=== PATIENT | female | born 1940 | race Caucasian/White ===

== ENCOUNTER 2021-05-27 04:35 | Inpatient (IN) | payer MEDICARE, MEDICAID, SELFPAY ==
[2021-05-27] VITALS (22 sets, daily range): BP systolic 86–136; BP diastolic 39–76; PULSE 54–90; RESP 12–20; TEMP 36.2–36.9; O2SAT 92–100; BMI 29.3; BMI 31.8
--- NOTE | 2021-05-27 | IR_ITS ---
APPROVED REPORT Patient Location: Inpatient Trapper Animal: QUINCY Harvey RT (R) PROCEDURES Selective coronary angiogram Drug-eluting stent deployment to the proximal LAD Drug-eluting stent deployment to the proximal mid and distal dominant right coronary in a contiguous manner INDICATION Acute non-ST elevation myocardial infarction, Severe aortic stenosis preoperative evaluation for TAVR, Coronary artery disease, Informed consent was obtained prior to the procedure. COMPLICATIONS None Estimated Blood Loss: Less than 10 mls TECHNIQUE One percent lidocaine used to anesthetize the right anterior aspect of the wrist. The right radial artery was accessed via the Seldinger technique. A 6 Venezuelan sheath was placed in the right radial artery. 2.5 mg of verapamil, 800 mcg of nitroglycerin, 1mg Lidocaine and 5000 U Heparin were given through the arterial sheath. The papa catheter was also used to perform selective coronary angiogram. At the end the diagnostic angiogram therapeutic heparin was administered giving a therapeutic ACT and the guide catheter was placed in the left main artery followed by a Choice PT extra-support wire. A 3.5 x 22 mm resolute [place] stent was deployed at 22 angelique reducing the severe tandem stenosis to 0%. MEL-3 flow was present before and after the procedure. After achieving excellent angiographic results the apparatus was removed and the guide catheter was placed in the right coronary artery followed by the same wire. The lesion was severely calcified tortuous and required multiple balloons including 2.5 mm compliant balloons. 2 of these balloons ruptured at low atmospheric pressure. Eventually a 2.75 x 38 mm resolute [place] stent was placed in the mid right coronary artery and deployed at 22 angelique. Following this an additional 3 mm x 26 mm resolute Carlos Eduardo stent then placed in the proximal segment at 24 angelique. The stent overlapped the first stent. Additional 2.5 mm balloons were then required distally in order to further predilate the stenosis. An additional 2.75 x 30 mm resolute [place] stent was then placed distal to the first stent that was placed yet still overlapping it and deployed at 22 angelique. The balloon was brought back and deployed at 24 angelique up and down the vessel. After achieving excellent angiograph results the apparatus was removed the sheath was removed and hemostasis was achieved using TR banding patient was transferred to the postop already in stable condition. MEL-3 flow was present before and after the procedure ANGIOGRAPHIC RESULTS The left main artery Normal The left anterior descending artery Has proximal tandem 80 and 70% stenoses followed by a stent in the mid segment which is widely patent with minimal in-stent restenosis. The remaining vessel has 20 and 30% disease but is otherwise widely patent and wraps the apex The circumflex artery Is a nondominant vessel and gives rise to a large ramus intermedius which has ostial 40 followed by proximal 40% followed by additional long 30 to 40% stenosis. The true circumflex artery has a proximal 40% stenosis. The right coronary artery Is a dominant vessel severely calcified has proximal 50 and 70% stenosis with long diffuse proximal to mid vessel 70% stenosis terminating in a densely calcified 90% complex stenosis. Distally there is a 60% calcified stenosis along a tortuous bend a large posterior descending artery The HARDING ventriculogram reveals Not performed The left ventricular end-diastolic pressure Not measured IMPRESSION Severe two-vessel coronary disease as described above Known severe to critical aortic stenosis Successful percutaneous revascularization the proximal ID severe tandem stenosis reduced to 0% with 1 drug-eluting
--- NOTE | 2021-05-27 04:42 | PC.NURSE ---
PT WAS TRANSFERRED TO FLOOR VIA STRETCHER PER AMBULANCE FROM [facility] @ [id number]
--- NOTE | 2021-05-27 05:00 | ECG_ITS ---
APPROVED REPORT Exam: Resting ECG HR:84 bpm ECG Measurements Heart Rate 84 AXES QRSd 95 QRS 50 QT 388 T -29 QTc 429 Conclusion ATRIAL FIBRILLATION NONSPECIFIC ST & T-WAVE ABNORMALITY ABNORMAL ECG UNCONFIRMED REPORT Electronically signed by : Madi Hernandez MD 05/28/2021 16:04:29
--- NOTE | 2021-05-27 05:21 | PC.NURSE ---
Patient admitted to 216. Patient in no distress at time of admission. Patient alert to self. During admission patient very poor historian. Attempted to call Daughter Suri at [phone] which her answered stating she was gone to work. The knew very limited information about the patient stating she lives alone, shes supposed to be on some medication but she always forgets to take them states she doesn't have a poa to his knowledge. When asking the patient about code status RN asked if your heart was to stop would you want everything done to stay alive. Patient stated, I guess so. Will continue to monitor patient.
[2021-05-27 05:34] LABS: Basophils # 0.1 K/mm3 (0-0.2); Basophils % 0.7 % (0.1-2.0); Eosinophils # 0.2 K/mm3 (0.0-0.4); Eosinophils % 1.1 % (0.1-12.0); Hematocrit 34.1 % (37.0-47.0); Hemoglobin 10.7 g/dL (12.2-16.2); Lymphocytes # 0.8 K/mm3 (0.7-4.5); Lymphocytes % 4.8 % (10-50); Mean Corpuscular HGB Conc 31.3 g/dL (31.8-35.4); Mean Corpuscular Hemoglobin 29.6 pg (27.0-31.2); Mean Corpuscular Volume 94.6 fl (81-99); Mean Platelet Volume 8.7 fl (7.4-10.4); Monocytes # 0.7 K/mm3 (0.1-1.0); Monocytes % 4.1 % (1.7-9.3); Neutrophils # 14.2 K/mm3 (1.8-7.8); Neutrophils % 89.3 % (37.0-80.0); Platelet Count 225 K/mm3 (142-424); Red Cell Distribution Width 17.9 % (11.5-17.5); White Blood Count 15.9 K/mm3 (4.8-10.8)
[2021-05-27 05:35] LABS: Coronavirus 19, PCR Not Detected (NotDetected); Influenza A, PCR Not Detected (NotDetected); Influenza B, PCR Not Detected (NotDetected)
[2021-05-27 05:37] LABS: MANUAL DIFFERENTIAL MANUAL DIFFERENTIAL (MANUAL DIFF)
[2021-05-27 05:39] LABS: INR 1.14 (0.9-1.1); Prothrombin Time 12.8 seconds (10.1-12.5)
[2021-05-27 05:40] LABS: Alanine Aminotransferase 14 U/L (12-78); Albumin Level 2.9 g/dl (3.5-5.0); Albumin/Globulin Ratio 1.2 (1.1-1.8); Alkaline Phosphatase 79 U/L (38-126); Anion Gap 11.7 mEq/L (5-15); Aspartate Amino Transferase 29 U/L (14-36); Bilirubin,Total 1.1 mg/dl (0.2-1.3); Blood Urea Nitrogen 27 mg/dl (7-17); Carbon Dioxide 22 mmol/L (22.0-30.0); Chloride 105 mmol/L (98-107); Creatinine Clearance Estimated 57 mL/min (50-200); Estimated Glomerular Filt Rate 53 ml/min (>60); GFR (African American) 64 ML/MIN (>60); Globulin 2.5 g/dL (1.3-3.2); Glucose 106 mg/dl (74-100); Potassium 3.7 mmoL/L (3.5-5.1); Sodium 135 mmol/L (136-145); Total Protein,Serum 5.4 g/dl (6.3-8.2)
[2021-05-27 05:52] LABS: Troponin I 0.51 ng/ml (0.00-0.034)
[2021-05-27 06:02] LABS: Lymphocytes % 3 % (10-50); Monocytes % 2 % (2-9); Neutrophils % 95 % (42-76); Total Cells Counted 100
[2021-05-27 06:03] LABS: Platelet Estimate Normal; Stomatocytes 1+
[2021-05-27 06:04] LABS: D-Dimer 1.14 ug/mL (0.0-0.5)
--- NOTE | 2021-05-27 06:07 | PC.NURSE ---
Critical troponin of 0.51 called from Ryder in lab. Patient name and patient id repeated and verified. Notified Dr. Horn of critical lab no new orders at this time. Justina states, I'll be up to round in a few. We will probably cath the patient later. Will continue to monitor patient.
[2021-05-27 06:54] LABS: Chol/HDL Ratio 3.8 (1-3.5); Cholesterol 124 mg/dl (140-200); HDL Cholesterol 33 mg/dl (40-60); Magnesium 1.5 mg/dl (1.6-2.3); Triglycerides 44 mg/dl (30-150); VLDL Cholesterol 9 mg/dL (0-40)
--- NOTE | 2021-05-27 07:00 | CA_ITS ---
APPROVED REPORT EXAM: Comprehensive 2D, Doppler, and color-flow Echocardiogram Systems Protection Technician: Radha Strickland RDCS Ht: 5 ft 3 in Wt: 180lbs BSA: 1.85 BP: 000/00 mmHg Indications: MURMUR, elevated troponin, NSTEMI, HTN, DM 2D Dimensions IVSd 1.25 cm LVEF (Visual) 53.20 % PWd 1.23 cm LA Volume 185.90 mL LVDd 4.58 cm LA Volume Index 100.813270 mL/m2 (M/F) 16-34 LVDs 3.33 cm Aortic Root 3.05 cm Left Atrium 5.09 cm LVOT 1.72 cm (M/F) 1.5-2.5 M-Mode Dimensions RVDd 3.27 cm (0.9-2.6) LA Diam 6.05 cm (1.9-4.0) LVDd 4.83 cm (3.5-5.7) Ao Diam 2.54 cm (2.0-3.7) LVDs 3.46 cm (3.5-5.7) IVSd 1.22 cm (0.6-1.1) PWd 1.22 cm (0.6-1.1) EF (Teich) 54.60% EPSs 0.32 cm FS 28.40% EDV (Teich) 109.10 mL TAPSE 1.18 (<1.7) ESV (Teich) 49.50 mL LV Diastology E Decel Time 207.00 (160-240 msec) E/A Ratio 4.43 MED E' 5.20 (< 7 cm/sec) MED A' 1.70 cm/s E'/MED E' Ratio 26.06 (>14) LAT E' 8.10 (<10 cm/sec) LAT A' 4.00 cm/s E/LAT E' Ratio 16.73 (>14) Pulm Vein s 19.00 cm/sec Pulm Vein d 25.00 cm/sec Ar-A Duration 83.00 msec Aortic Valve LVOT Max 92.00 (70-110 cm/s) LVOT VTI 18.93 cm AoV Peak Edwin. 385.00 (50-130 cm/s) AI PHT 464.00 ms AO Peak GR. 59.40 mmHg AO Mean GR. 34.00 (<5 mmHg) AO VTI 82.79 (18-25 cm) CONCHIS (VTI) 0.53 (2.5-4.5 cm2) Mitral Valve MV A Velocity 31.00 (40-130 cm/s) E/A Ratio 4.43 MV Decel. Time 207.00 (160-240 ms) MV Mean Gr. 2.50 (<2mmHg) MV PHT 60.00 ms Pulmonary Valve PV Peak Velocity 63.00 (50-150 cm/s) Tricuspid Valve TR P. Velocity 210.00 cm/s RAP Estimate 10.00 mmHg RVSP 27.70 mmHg Left Ventricle Left atrium is moderately enlarged, left ventricle is normal size, mild concentric left ventricular hypertrophy, visually estimated ejection fraction 55% with no regional wall motion abnormality, diastolic parameters are inconclusive. Right Ventricle Right atrium and right ventricle are normal size and contractility. Aortic Valve Aortic valve is thickened and calcified with severe restriction in the aortic valve leaflet mobility, the mean gradient across aortic valve is 36 mmHg, valve area is 0.6 cm represents severe aortic stenosis, there is mild aortic insufficiency. Mitral Valve Mitral valve has dense mitral annular calcification with extension posterior mitral leaflet, there is no mitral stenosis, there is moderate mitral regurgitation. Tricuspid Valve Tricuspid valve is grossly normal, there is mild tricuspid regurgitation, tricuspid regurgitation jet velocity is inadequate for calculation of the right ventricular systolic pressure. Pulmonic Valve Pulmonic valve is poorly visualized. Great Vessels Aortic root is normal size. Inferior vena cava is poorly visualized. Pericardium No significant pericardial effusion noted. Conclusion 1. Moderately enlarged left atrium, normal left ventricular size, mild concentric left ventricular hypertrophy, visually estimated ejection fraction 55% with no regional wall motion abnormality, diastolic parameters are inconclusive. 2. Thickened and calcified aortic valve with severe aortic stenosis, valve area is 0.6 cm???, there is mild aortic insufficiency. 3. Moderate mitral and mild tricuspid regurgitation. 4. No significant pericardial effusion noted. 5. Inferior vena cava is poorly visualized. Electronically signed
[2021-05-27 07:05] LABS: Direct LDL Cholesterol 71.49 mg/dL (100-129)
--- NOTE | 2021-05-27 07:28 | HMH.PHAVTE ---
[facility] Pharmacy VTE Monitoring - Patient Demographics Admission date: 05/27/21 Report Date: 05/27/21 Time: 07:28 Allergies/Adverse Reactions: Patient Allergies No Known Allergies Allergy (Verified 05/27/21 05:00) Height: 1.6 m Weight: 81.65 kg - VTE Risk Labs: VTE Related Lab Results Hgb 10.7 g/dL (12.2-16.2) L 05/27/21 05:18 Hct 34.1 % (37.0-47.0) L 05/27/21 05:18 Plt Count 225 K/mm3 (142-424) 05/27/21 05:18 PT 12.8 seconds (10.1-12.5) H 05/27/21 05:18 INR 1.14 (0.9-1.1) H 05/27/21 05:18 BUN 27 mg/dl (7-17) H 05/27/21 05:18 Creatinine 1.00 mg/dl (0.52-1.04) 05/27/21 05:18 Estimated Creat Clear 57 mL/min (50-200) 05/27/21 05:18 Clinical Trial Participant: No - Prophylaxis VTE Prophylaxis Ordered?: Yes Types of VTE Prophylaxis: TEDS Knee High
--- NOTE | 2021-05-27 09:06 | HMH.HP ---
*Admission Date: 05/27/21 *Chief complaint: Chest Pain *History of present illness: This is an 80-year-old white female who is a very poor historian. She was transferred here from [facility] due to atrial fibrillation with RVR. The patient also has an elevated troponin. She states that she has been having chest pain. She describes this as a funny sensation in the substernal aspect of her chest. She also states that she has pressure in her chest. This radiates up to her neck. The patient states that it is associated with shortness of breath and nausea. She states that this can be severe. The patient states that her symptoms started yesterday and continued to worsen and that is why she went to the emergency department at [facility]. She is unable to really tell me any of her health history. It does appear that she does have hyperlipidemia, hypertension and diabetes. She denies any lower extremity edema. She denies any fever, chills, nausea, vomiting, diarrhea, PND or orthopnea. She was also complaining of racing of her heart and feeling like her heart was beating fast (Per Anatoly Lynn APRN). [facility] History I have reviewed the patient's past medical history: Yes Medical History: Reports:: Diabetes Mellitus Type 2, Hyperlipidemia, Hypertension *Have you ever received a pneumonia vaccine?: No *Have you received a flu vaccine this season?: No Other Surgeries: Yes: Hysterectomy-Total - *Social History Smoking Status: Former smoker Tobacco Type: cigarettes Alcohol Intake: never *Occupational Status:: retired Housing: house Household Members: none *Travel in the last 8 weeks: None Family Hx:: Coronary Artery Disease (father) Review of Systems - Review of Systems Review of systems:: pertinent systems reviewed and negative unless documented below - Constitutional Denies body ache(s), Denies chills - Eyes Denies blurry vision, Denies change in vision - ENT Denies bleeding gums, Denies ear pain, Denies mouth pain - *Cardiovascular Reports chest pain, Reports chest pain at rest, Reports chest pain with activity, Reports shortness of breath, Reports shortness of breath with activity, Reports irregular heart rhythm - *Respiratory Reports cough, Reports shortness of breath, Reports shortness of breath with activity, Denies excessive phlegm production - *Gastrointestinal Denies abdominal pain, Denies change in bowel habits, Denies change in stools - *Musculoskeletal Denies joint pain, Denies back pain, Denies joint swelling - Integumentary/Breasts Denies bleeding lesions, Denies changing lesions - *Neurologic Denies abnormal walking, Denies behavioral changes - Psychiatric Denies lack of enjoyment, Denies hearing things others do not hear - Endocrine Denies cold intolerance, Denies heat intolerance - Hematologic/Lymphatic Denies easy bleeding, Denies easy bruising - Allergic/Immunologic Denies GI upset with certain foods, Denies tongue swelling Meds Home Medications Medication Instructions Recorded Confirmed Type Atorvastatin Calcium [Lipitor 40mg 40 mg PO HS 05/27/21 05/27/21 History Tab] Allergies Allergy/AdvReac Type Severity Reaction Status Date / Time No Known Allergies Allergy Verified 05/27/21 05:00 Exam Vital signs and Labs for Last 24 Hours: Temp Pulse Resp BP Pulse Ox 98.1 F 74 18 90/44 L 95 05/27/21 11:55 05/27/21 14:55 05/27/21 14:55 05/27/21 14:55 05/27/21 14:55 Laboratory Results - last 24 hr 05/27/21 05:18: WBC 15.9 H, RBC 3.60 L, Hgb 10.7 L, Hct 34.1 L, MCV 94.6, MCH 29.6, MCHC 31.3 L, RDW 17.9 H, Plt Count 225, MPV 8.7, Neut % (Auto) 89.3 H, Lymph % (Auto) 4.8 L, Curry % (Auto) 4.1, Eos % (Auto) 1.1, Baso % (Auto) 0.7, Neut # (Auto) 14.2 H, Lymph # (Auto) 0.8, Curry # (Auto) 0.7, Eos # (Auto) 0.2, Baso # (Auto) 0.1, Total Counted 100, Neutrophils % (Manual) 95 H, Lymphocytes % (Manual) 3 L, Monocytes % (Manual) 2, Platelet Minerva
--- NOTE | 2021-05-27 10:10 | HMH.CNCARD ---
History of Present Illness Consult date: 05/27/21 Requesting physician: Medardo Horn Consult reason: chest pain, atrial fibrillation Chief complaint: chest pain History of present illness: This is an 80-year-old white female who is a very poor historian. She was transferred here from [facility] due to atrial fibrillation with RVR. The patient also has an elevated troponin. She states that she has been having chest pain. She describes this as a funny sensation in the substernal aspect of her chest. She also states that she has pressure in her chest. This radiates up to her neck. The patient states that it is associated with shortness of breath and nausea. She states that this can be severe. The patient states that her symptoms started yesterday and continued to worsen and that is why she went to the emergency department at [facility]. She is unable to really tell me any of her health history. It does appear that she does have hyperlipidemia, hypertension and diabetes. She denies any lower extremity edema. She denies any fever, chills, nausea, vomiting, diarrhea, PND or orthopnea. She was also complaining of racing of her heart and feeling like her heart was beating fast. [facility] History I have reviewed the patient's past medical history: Yes Medical History: Reports:: Diabetes Mellitus Type 2, Hyperlipidemia, Hypertension *Have you ever received a pneumonia vaccine?: No *Have you received a flu vaccine this season?: No Other Surgeries: Yes: Hysterectomy-Total - *Social History Smoking Status: Former smoker Tobacco Type: cigarettes Alcohol Intake: never *Occupational Status:: retired Housing: house Household Members: none *Travel in the last 8 weeks: None Family Hx:: Coronary Artery Disease (father) Meds Home Medications Medication Instructions Recorded Confirmed Type Atorvastatin Calcium [Lipitor 40mg 40 mg PO HS 05/27/21 05/27/21 History Tab] Allergies Allergy/AdvReac Type Severity Reaction Status Date / Time No Known Allergies Allergy Verified 05/27/21 05:00 Exam Vital signs and Labs for Last 24 Hours: Temp Pulse Resp BP Pulse Ox 97.9 F 75 19 104/58 L 100 05/27/21 08:00 05/27/21 08:00 05/27/21 08:00 05/27/21 08:00 05/27/21 08:00 Laboratory Results - last 24 hr 05/27/21 05:18: WBC 15.9 H, RBC 3.60 L, Hgb 10.7 L, Hct 34.1 L, MCV 94.6, MCH 29.6, MCHC 31.3 L, RDW 17.9 H, Plt Count 225, MPV 8.7, Neut % (Auto) 89.3 H, Lymph % (Auto) 4.8 L, [place] % (Auto) 4.1, Eos % (Auto) 1.1, Baso % (Auto) 0.7, Neut # (Auto) 14.2 H, Lymph # (Auto) 0.8, [place] # (Auto) 0.7, Eos # (Auto) 0.2, Baso # (Auto) 0.1, Total Counted 100, Neutrophils % (Manual) 95 H, Lymphocytes % (Manual) 3 L, Monocytes % (Manual) 2, Platelet Estimate Normal, Stomatocytes 1+ 05/27/21 05:18: Troponin I 0.51 H 05/27/21 05:18: PT 12.8 H, INR 1.14 H 05/27/21 05:18: D-Dimer 1.14 H 05/27/21 05:18: Sodium 135 L, Potassium 3.7, Chloride 105, Carbon Dioxide 22, Anion Gap 11.7, BUN 27 H, Creatinine 1.00, Estimated Creat Clear 57, Estimated GFR 53 L, Est GFR ( Amer) 64, Glucose 106 H, Calcium 8.0 L, Total Bilirubin 1.1, AST 29, ALT 14, Alkaline Phosphatase 79, Total Protein 5.4 L, Albumin 2.9 L, Globulin 2.5, Albumin/Globulin Ratio 1.2 05/27/21 05:18: SARS-CoV-2 (PCR) Not detected, Influenza A Untype (PCR) Not detected, Influenza Type B (PCR) Not detected 05/27/21 05:18: Magnesium 1.5 L, Triglycerides 44, Cholesterol 124 L, LDL Cholesterol Direct 71.49 L, VLDL Cholesterol 9, HDL Cholesterol 33 L, Cholesterol/HDL Ratio 3.8 H I & O for Last 24 hours: Intake & Output 05/24/21 05/25/21 05/26/21 05/27/21 23:59 23:59 23:59 23:59 Weight 180 lb 0.119 oz Narrative: EKG shows atrial fibrillation with nonspecific ST and T wave abnormalities. Rate is 84 bpm. - Constitutional no acute distress, obese - *Routine HEENT Exam Head: Present: normocephalic, atraumatic Eye: Present: EOMI, PERRL ENT: Present: mu
--- NOTE | 2021-05-27 10:19 | HMH.PHAINT ---
Home med rec complete
--- NOTE | 2021-05-27 10:24 | CA_ITS ---
FINAL REPORT TECHNIQUE: Color Doppler, duplex Doppler and bose scale sonography of the bilateral neck vasculature was performed. Velocities were measured in the carotid arteries. Stenosis evaluation based on velocity criteria. CLINICAL HISTORY: carotid bruits,DM,HTN,SEVERE FINDINGS: The peak systolic velocity of the right common carotid artery is 60 cm/sec and internal carotid artery 83 cm/sec. The diastolic velocity in the internal carotid artery is 25 cm/sec. The ICA/CCA ratio is 1.4. Visually, a moderate amount of plaque is seen. These findings are consistent with less than 50% stenosis. The external carotid artery is patent. The right vertebral artery is patent with antegrade flow. The peak systolic velocity of the left common carotid artery is 59 cm/sec and internal carotid artery 86 cm/sec. The diastolic velocity in the internal carotid artery is 23 cm/sec. The ICA/CCA ratio is 1.5. Visually, a moderate amount of plaque is seen. These findings are consistent with less than 50% stenosis. The external carotid artery is patent. The left vertebral artery is patent with antegrade flow. IMPRESSION: Less than 50% bilateral carotid stenosis. Bilateral patent vertebral arteries. If indicated, CTA or MRA could further evaluate. Reviewed, Interpreted and Dictated by Cuong Jewell III, MD Transcribed by Urbano Church Authenticated by Cuong Jewell III, MD on 05/27/2021 11:50:27 AM [facility]
--- NOTE | 2021-05-27 13:29 | PC.NURSE ---
pt. off floor to lab scientist.
[2021-05-27 16:17] LABS: CATHL Activated Clotting Time > 400 SEC (74-125)
[2021-05-27 21:31] LABS: POC Glucose,Bedside 109 (70-110)
[2021-05-28] VITALS (10 sets, daily range): BP systolic 98–142; BP diastolic 47–89; PULSE 65–91; RESP 14–23; TEMP 36.5–36.8; O2SAT 94–99; BMI 28.4
[2021-05-28 06:10] LABS: POC Glucose,Bedside 101 (70-110)
[2021-05-28 06:57] LABS: Basophils # 0.1 K/mm3 (0-0.2); Basophils % 0.6 % (0.1-2.0); Eosinophils # 0.2 K/mm3 (0.0-0.4); Eosinophils % 1.9 % (0.1-12.0); Hematocrit 33.3 % (37.0-47.0); Hemoglobin 10.4 g/dL (12.2-16.2); Lymphocytes # 1.4 K/mm3 (0.7-4.5); Lymphocytes % 12.5 % (10-50); Mean Corpuscular HGB Conc 31.3 g/dL (31.8-35.4); Mean Corpuscular Hemoglobin 29.8 pg (27.0-31.2); Mean Corpuscular Volume 95.1 fl (81-99); Mean Platelet Volume 9.4 fl (7.4-10.4); Monocytes # 0.7 K/mm3 (0.1-1.0); Monocytes % 6.3 % (1.7-9.3); Neutrophils # 8.8 K/mm3 (1.8-7.8); Neutrophils % 78.7 % (37.0-80.0); Platelet Count 235 K/mm3 (142-424); Red Cell Distribution Width 18.1 % (11.5-17.5); White Blood Count 11.1 K/mm3 (4.8-10.8)
[2021-05-28 07:04] LABS: Anion Gap 10.6 mEq/L (5-15); Blood Urea Nitrogen 30 mg/dl (7-17); Carbon Dioxide 24 mmol/L (22.0-30.0); Chloride 106 mmol/L (98-107); Creatinine Clearance Estimated 51 mL/min (50-200); Estimated Glomerular Filt Rate 53 ml/min (>60); GFR (African American) 64 ML/MIN (>60); Potassium 3.6 mmoL/L (3.5-5.1); Sodium 137 mmol/L (136-145)
[2021-05-28 07:05] LABS: Calcium 8.1 mg/dl (8.4-10.2); Glucose 90 mg/dl (74-100)
[2021-05-28 10:50] LABS: Microscopic, Urine URINE MICROSCOPIC (MICROSCOPIC)
[2021-05-28 11:03] LABS: Appearance,Urine CLEAR (Clear); Bilirubin,Urine Negative (Negative); Blood, Urine TRACE-I (Negative); Color,Urine YELLOW (Yellow); Glucose,Urine (UA) Negative (Negative); Ketones,Urine Negative (Negative); Leukocyte Esterase,Urine 2+ (Negative); Nitrate,Urine Negative (Negative); Protein,Urine Negative (Negative); Specific Gravity, Urine <= 1.005 (1.005-1.030)
--- NOTE | 2021-05-28 11:08 | DIET.NUTRFU ---
RD saw patient this AM during rounds and patient has no teeth. Claims she tolerates food with difficulty chewing or swallowing. Son lives with her at home and helps with meals. Breakfast intake was 75%. She does report wt loss COMPO CASTER, added glucerna BID to help maintain weight/nutrition.
[2021-05-28 11:25] LABS: Bacteria,Urine 1+ /lpf
--- NOTE | 2021-05-28 11:32 | HMH.PNCARD ---
Subjective Date: 05/28/21 Time: 10:30 Principal diagnosis: nonstemi, severe Interval history: This is an 80-year-old white female who presented to [facility] and was found to be in atrial fibrillation with RVR. She also had an elevated troponin consistent with a non-ST elevation myocardial infarction. The patient was transferred here to [facility] and underwent left cardiac catheterization. She had 1 stent placed to her LAD and 3 stents placed to her right coronary artery. The patient has been started on Brilinta and aspirin for dual antiplatelet therapy. The patient has tolerated this well. This morning she denies any chest pain or pressure. She denies any shortness of breath or edema. She denies any fever, chills, nausea, vomiting, diarrhea, PND or orthopnea. She denies any palpitations or racing of the heart today. The patient is now rate controlled in atrial fibrillation. The patient does have severe aortic stenosis. She would benefit from the TAVR procedure. We will refer the patient to Dr. Sellers on an outpatient basis for TAVR. Exam Vital signs and Labs for Last 24 Hours: Temp Pulse Resp BP Pulse Ox 97.9 F 66 22 98/47 L 98 05/28/21 11:26 05/28/21 11:26 05/28/21 11:26 05/28/21 11:26 05/28/21 11:26 Laboratory Results - last 24 hr 05/27/21 14:57: Activated Clotting Time > 400 H* 05/27/21 21:20: POC Glucose 109 05/28/21 05:20: WBC 11.1 H D, RBC 3.50 L, Hgb 10.4 L, Hct 33.3 L, MCV 95.1, MCH 29.8, MCHC 31.3 L, RDW 18.1 H, Plt Count 235, MPV 9.4, Neut % (Auto) 78.7, Lymph % (Auto) 12.5, [place] % (Auto) 6.3, Eos % (Auto) 1.9, Baso % (Auto) 0.6, Neut # (Auto) 8.8 H, Lymph # (Auto) 1.4, [place] # (Auto) 0.7, Eos # (Auto) 0.2, Baso # (Auto) 0.1 05/28/21 05:20: Sodium 137, Potassium 3.6, Chloride 106, Carbon Dioxide 24, Anion Gap 10.6, BUN 30 H, Creatinine 1.00, Estimated Creat Clear 51, Estimated GFR 53 L, Est GFR ( Amer) 64, Glucose 90, Calcium 8.1 L 05/28/21 06:03: POC Glucose 101 05/28/21 09:54: Urine Color Yellow, Urine Appearance Clear, Urine pH 6.0, Ur Specific [place] <= 1.005, Urine Protein Negative, Urine Glucose (UA) Negative, Urine Ketones Negative, Urine Blood Trace-i, Urine Nitrate Negative, Urine Bilirubin Negative, Urine Urobilinogen 2.0, Ur Leukocyte Esterase 2+ A, Urine RBC 3-5, Urine WBC 5-10, Ur Squamous Epith Cells 3-5, Urine Bacteria 1+ I & O for Last 24 hours: Intake & Output 05/25/21 05/26/21 05/27/21 05/28/21 23:59 23:59 23:59 23:59 Intake Total 840 / 840 360 / 360 Output Total 500 / 500 Balance 340 / 340 360 / 360 Weight 179 lb 14.355 oz 160 lb 9.6 oz Narrative: CNI shows: Less than 50% bilateral carotid stenosis. Bilateral patent vertebral arteries. If indicated, CTA or MRA could further evaluate. Telemetry strip shows atrial fibrillation with a rate of 71. Left cardiac catheterization shows: The left main artery Normal The left anterior descending artery Has proximal tandem 80 and 70% stenoses followed by a stent in the mid segment which is widely patent with minimal in-stent restenosis. The remaining vessel has 20 and 30% disease but is otherwise widely patent and wraps the apex The circumflex artery Is a nondominant vessel and gives rise to a large ramus intermedius which has ostial 40 followed by proximal 40% followed by additional long 30 to 40% stenosis. The true circumflex artery has a proximal 40% stenosis. The right coronary artery Is a dominant vessel severely calcified has proximal 50 and 70% stenosis with long diffuse proximal to mid vessel 70% stenosis terminating in a densely calcified 90% complex stenosis. Distally there is a 60% calcified stenosis along a tortuous bend a large posterior descending artery The HARDING ventriculogram reveals Not performed The left ventricular end-diastolic pressure Not measured IMPRESSION Severe two-vessel coronary disease as described above Known severe to critical aortic stenosis Succe
[2021-05-28 11:46] LABS: POC Glucose,Bedside 134 (70-110)
--- NOTE | 2021-05-28 14:12 | HMH.DCSUM ---
General - General Admission date:: 05/27/21 Discharge date: 05/28/21 HPI HPI: This is an 80-year-old white female who is a very poor historian. She was transferred here from [facility] due to atrial fibrillation with RVR. The patient also has an elevated troponin. She states that she has been having chest pain. She describes this as a funny sensation in the substernal aspect of her chest. She also states that she has pressure in her chest. This radiates up to her neck. The patient states that it is associated with shortness of breath and nausea. She states that this can be severe. The patient states that her symptoms started yesterday and continued to worsen and that is why she went to the emergency department at [facility]. She is unable to really tell me any of her health history. It does appear that she does have hyperlipidemia, hypertension and diabetes. She denies any lower extremity edema. She denies any fever, chills, nausea, vomiting, diarrhea, PND or orthopnea. She was also complaining of racing of her heart and feeling like her heart was beating fast (Per Anatoly Lynn [employer]HOU[employer]ER). Hospital Course Hospital Course: Abnormal Lab Results 05/27/21 14:57: Activated Clotting Time > 400 H* 05/28/21 05:20: WBC 11.1 H D, RBC 3.50 L, Hgb 10.4 L, Hct 33.3 L, MCHC 31.3 L, RDW 18.1 H, Neut # (Auto) 8.8 H 05/28/21 05:20: BUN 30 H, Estimated GFR 53 L, Calcium 8.1 L 05/28/21 09:54: Ur Leukocyte Esterase 2+ A 05/28/21 11:39: POC Glucose 134 H CNI shows: Less than 50% bilateral carotid stenosis. Bilateral patent vertebral arteries. If indicated, CTA or MRA could further evaluate. Telemetry strip shows atrial fibrillation with a rate of 71. Left cardiac catheterization shows: The left main artery Normal The left anterior descending artery Has proximal tandem 80 and 70% stenoses followed by a stent in the mid segment which is widely patent with minimal in-stent restenosis. The remaining vessel has 20 and 30% disease but is otherwise widely patent and wraps the apex The circumflex artery Is a nondominant vessel and gives rise to a large ramus intermedius which has ostial 40 followed by proximal 40% followed by additional long 30 to 40% stenosis. The true circumflex artery has a proximal 40% stenosis. The right coronary artery Is a dominant vessel severely calcified has proximal 50 and 70% stenosis with long diffuse proximal to mid vessel 70% stenosis terminating in a densely calcified 90% complex stenosis. Distally there is a 60% calcified stenosis along a tortuous bend a large posterior descending artery The HARDING ventriculogram reveals Not performed The left ventricular end-diastolic pressure Not measured IMPRESSION Severe two-vessel coronary disease as described above Known severe to critical aortic stenosis Successful percutaneous revascularization the proximal ID severe tandem stenosis reduced to 0% with 1 drug-eluting stent Severe to critical disease in a large dominant right coronary with successful percutaneous revascularization with 3 contiguous stents Aortic valve area of 0.6 cm??? per echocardiogram PLAN 1. Dual antiplatelet therapy 2. Referral to [facility] for evaluation of TAVR with Dr. Sellers 3. Risk factor modification 4. Avoidance of cardiac rehabilitation as long as patient has critical aortic stenosis echo: Conclusion 1. Moderately enlarged left atrium, normal left ventricular size, mild concentric left ventricular hypertrophy, visually estimated ejection fraction 55% with no regional wall motion abnormality, diastolic parameters are inconclusive. 2. Thickened and calcified aortic valve with severe aortic stenosis, valve area is 0.6 cm???, there is mild aortic insufficiency. 3. Moderate mitral and mild tricuspid regurgitation. 4. No significant pericardial effusion noted. 5. Inferior vena cava is poorly visualized. cardiology:Assessment and
--- NOTE | 2021-05-28 15:57 | HMH.PHACLD ---
Milagros Mckinley has received discharge medication counseling on the following medications: -ATORVASTATIN -BRILINTA -XARELTO -BISOPROLOL -NOT ON CHRISTY/ARB DUE TO NORMOTENSIVE BP.
--- NOTE | 2021-05-31 14:25 | CARE MANAGER ---
Attempted follow-up phone call and the number we have for this patient is not working. Called and spoke with Suri Stauffer () he states his isn't home from work but he patient is doing well and he doesn't know of any needs.
== END 2021-05-28 17:00 | disposition home or self-care (01) | DRG 246 ==
PROVIDERS: Internal Medicine; Nurse Practitioner Family; Admitting Provider Emergency Medicine; PCP Family Medicine; Visit Provider Emergency Medicine
PROC: 027137Z Dilation of Coronary Artery, Two Arteries with Four or More Drug-eluting Intraluminal Devices, Percutaneous Approach (ICD-10-PCS; principal; 2021-05-27 10:30)
DX: I21.4 Non-ST elevation (NSTEMI) myocardial infarction (principal); I48.91 Unspecified atrial fibrillation; I10 Essential (primary) hypertension; E78.5 Hyperlipidemia, unspecified; E11.9 Type 2 diabetes mellitus without complications; I08.0 Rheumatic disorders of both mitral and aortic valves; Z87.891 Personal history of nicotine dependence
CPT/HCPCS: 36415; 80048; 80053; 80061; 81001; 82962; 83735; 84484; 85007; 85025; 85347; 85378; 85610; 87086; 92928; 92941; 93005; 93306; 93458; 93880; 99152; 99153; C1725; C1769; C1876; C9600; C9606; C9803; J0696; J1644; Q9967; U0003; U0005

== ENCOUNTER → 2021-08-27 09:59 | Outpatient (CLI) | payer MEDICARE, MEDICAID, SELFPAY ==
[2021-08-27 17:20] LABS: Chloride 108 mmol/L (98-107); Potassium 4.2 mmoL/L (3.5-5.1); Sodium 139 mmol/L (136-145)
[2021-08-27 17:23] LABS: Alanine Aminotransferase 16 U/L (12-78); Albumin Level 3.2 g/dl (3.5-5.0); Albumin/Globulin Ratio 1.3 (1.1-1.8); Alkaline Phosphatase 72 U/L (38-126); Anion Gap 9.2 mEq/L (5-15); Aspartate Amino Transferase 36 U/L (14-36); Bilirubin,Total 0.6 mg/dl (0.2-1.3); Blood Urea Nitrogen 28 mg/dl (7-17); Carbon Dioxide 26 mmol/L (22.0-30.0); Estimated Glomerular Filt Rate 53 ml/min (>60); GFR (African American) 64 ML/MIN (>60); Globulin 2.5 g/dL (1.3-3.2); Total Protein,Serum 5.7 g/dl (6.3-8.2)
[2021-08-27 17:24] LABS: Glucose 105 mg/dl (74-100)
== END ==
PROVIDERS: PCP Emergency Medicine; Visit Provider Emergency Medicine
DX: E11.9 Type 2 diabetes mellitus without complications (principal)
CPT/HCPCS: 80053

== ENCOUNTER → 2022-08-11 10:44 | Outpatient (CLI) | payer MEDICARE, MEDICAID, SELFPAY ==
[2022-08-11 12:33] LABS: Basophils % 0.3 % (0.1-2.0); Eosinophils # 0.4 K/mm3 (0.0-0.4); Eosinophils % 3.1 % (0.1-12.0); Hemoglobin 10.4 g/dL (12.2-16.2); Lymphocytes # 1.3 K/mm3 (0.7-4.5); Lymphocytes % 10.1 % (10-50); Mean Corpuscular HGB Conc 32.5 g/dL (31.8-35.4); Mean Corpuscular Hemoglobin 27.5 pg (27.0-31.2); Mean Corpuscular Volume 84.5 fl (81-99); Mean Platelet Volume 8.6 fl (7.4-10.4); Monocytes # 0.8 K/mm3 (0.1-1.0); Monocytes % 6.6 % (1.7-9.3); Neutrophils % 79.9 % (37.0-80.0); Platelet Count 291 K/mm3 (142-424); Red Blood Count 3.79 M/mm3 (4.20-5.40); Red Cell Distribution Width 17.5 % (11.5-17.5); White Blood Count 12.5 K/mm3 (4.8-10.8)
[2022-08-11 12:53] LABS: Alanine Aminotransferase 26 U/L (12-78); Albumin Level 3.2 g/dl (3.5-5.0); Alkaline Phosphatase 129 U/L (38-126); Anion Gap 14.2 mEq/L (5-15); Aspartate Amino Transferase 43 U/L (14-36); Bilirubin,Indirect 0.8 mg/dL (0.0-0.9); Bilirubin,Total 0.8 mg/dl (0.2-1.3); Blood Urea Nitrogen 22 mg/dl (7-17); Calcium 8.1 mg/dl (8.4-10.2); Carbon Dioxide 33 mmol/L (22.0-30.0); Chloride 90 mmol/L (98-107); Chol/HDL Ratio 2.9 (1-3.5); Cholesterol 144 mg/dl (140-200); Estimated Glomerular Filt Rate 60 ml/min (>60); GFR (African American) 72 ML/MIN (>60); Glucose 116 mg/dl (74-100); HDL Cholesterol 50 mg/dl (40-60); Magnesium 1.5 mg/dl (1.6-2.3); Potassium 3.2 mmoL/L (3.5-5.1); Sodium 134 mmol/L (136-145); Total Protein,Serum 5.7 g/dl (6.3-8.2); Triglycerides 91 mg/dl (30-150); VLDL Cholesterol 18 mg/dL (0-40)
[2022-08-11 13:04] LABS: Direct LDL Cholesterol 80.32 mg/dL (100-129)
[2022-08-11 13:10] LABS: Free T4 (Free Thyroxine) 1.55 ng/dl (0.78-2.19)
[2022-08-11 13:23] LABS: Thyroid Stimulating Hormone 3.34 uIU/mL (0.465-4.68)
== END ==
LOC: LAB 10:45
PROVIDERS: PCP Family Medicine; Visit Provider Nurse Practitioner
DX: E78.2 Mixed hyperlipidemia (principal); I10 Essential (primary) hypertension; I21.4 Non-ST elevation (NSTEMI) myocardial infarction; I25.10 Atherosclerotic heart disease of native coronary artery without angina pectoris; I48.19 Other persistent atrial fibrillation; I65.23 Occlusion and stenosis of bilateral carotid arteries; R09.89 Other specified symptoms and signs involving the circulatory and respiratory systems; Z95.2 Presence of prosthetic heart valve; Z95.5 Presence of coronary angioplasty implant and graft; R42 Dizziness and giddiness; Z79.899 Other long term (current) drug therapy
CPT/HCPCS: 36415; 80048; 80061; 80076; 83036; 83735; 84439; 84443; 85025; 93270

== ENCOUNTER 2022-08-14 13:17 | Emergency (ER) | payer MEDICARE, MEDICAID, SELFPAY ==
[2022-08-14 13:16] VITALS: BP 124/62; PULSE 86; RESP 20; O2SAT 97
--- NOTE | 2022-08-14 13:17 | ECG_ITS ---
APPROVED REPORT Exam: Resting ECG HR:87 bpm ECG Measurements Heart Rate 87 AXES QRSd 97 QRS 61 QT 412 T 41 QTc 457 Conclusion ATRIAL FIBRILLATION NONSPECIFIC ST & T-WAVE ABNORMALITY ABNORMAL RHYTHM ECG UNCONFIRMED REPORT Electronically signed by : Madi Hernandez MD 08/15/2022 20:23:41
--- NOTE | 2022-08-14 13:19 | XR_ITS ---
PROCEDURE INFORMATION: Exam: XR Chest Exam date and time: 08/14/2022 1:22 PM Age: 82 years old Clinical indication: Chest wall pain TECHNIQUE: Imaging protocol: Radiologic exam of the chest. Views: 1 view. COMPARISON: No relevant prior studies available. FINDINGS: Tubes, catheters and devices: There is electronic monitoring device implanted within the right chest wall but difficult to further assess. Lungs: No consolidating infiltrates or pulmonary edema. Pleural spaces: Unremarkable. No pleural effusion. No pneumothorax. Heart/Mediastinum: Heart is enlarged. Evidence of previous cardiac valve repair. Bones/joints: Unremarkable for age. IMPRESSION: Cardiomegaly. No active disease.
[2022-08-14 13:21] VITALS: BP 124/62; PULSE 83; RESP 18; O2SAT 98; BMI 39.0
--- NOTE | 2022-08-14 13:24 | CT_ITS ---
PROCEDURE INFORMATION: Exam: CT Cervical Spine Without Contrast Exam date and time: 08/14/2022 1:45 PM Age: 82 years old Clinical indication: Injury or trauma; Fall; Sprain or strain, cervical ligaments; Additional info: Pain, fall TECHNIQUE: Imaging protocol: Computed tomography of the cervical spine without contrast. Radiation optimization: All CT scans at this facility use at least one of these dose optimization techniques: automated exposure control; mA and/or kV adjustment per patient size (includes targeted exams where dose is matched to clinical indication); or iterative reconstruction. REPORTING DATA: Count of CT and Cardiac NM exams in prior 12 months: This patient has received 0 known CTs and 0 known cardiac nuclear medicine studies in the 12 months prior to the current study. COMPARISON: CT HEAD/BRAIN WO CON 08/14/2022 1:43 PM FINDINGS: Bones/joints: No acute fracture or traumatic subluxation. No spondylolisthesis. The atlantooccipital and atlantoaxial articulations are intact. Occipital condyles are intact. Facet joint alignments are maintained. Age-related degenerative disc disease. Multilevel degenerative changes of the cervical spine. Prevertebral and retropharyngeal spaces: No prevertebral soft tissue swelling. Lungs: Lung apices are normal. Soft tissues: Unremarkable. IMPRESSION: No acute fracture or traumatic subluxation.
--- NOTE | 2022-08-14 13:24 | CT_ITS ---
PROCEDURE INFORMATION: Exam: CT Chest Without Contrast; Diagnostic Exam date and time: 08/14/2022 1:48 PM Age: 82 years old Clinical indication: Pain and injury or trauma; Fall; Sprain or strain; Chest wall pain; Additional info: Fall, pain TECHNIQUE: Imaging protocol: Diagnostic computed tomography of the chest without contrast. Radiation optimization: All CT scans at this facility use at least one of these dose optimization techniques: automated exposure control; mA and/or kV adjustment per patient size (includes targeted exams where dose is matched to clinical indication); or iterative reconstruction. REPORTING DATA: Count of CT and Cardiac NM exams in prior 12 months: This patient has received 0 known CTs and 0 known cardiac nuclear medicine studies in the 12 months prior to the current study. COMPARISON: CR XR CHEST PORTABLE 08/14/2022 1:22 PM FINDINGS: Tubes, catheters and devices: There is a electronic monitoring device projecting over the right upper chest wall. Lungs: Scattered granulomatous calcifications within the mediastinum and left upper lobe. Mild interstitial lung changes mid to lower lung zones with scattered reticulation without honeycombing or architectural distortion suggestive of idiopathic interstitial lung disease. 1 cm indistinct ground-glass nodule right upper lobe, nonspecific. Pleural spaces: Unremarkable. No pneumothorax. No pleural effusion. Heart: Heart is enlarged. Evidence of previous aortic valve repair. Extensive calcification of the coronary arteries. No significant pericardial effusion. Lymph nodes: Unremarkable. No enlarged lymph nodes. Vasculature: Scattered atherosclerotic changes of the thoracic aorta and upper abdominal aorta as well as mesenteric branches. No aortic aneurysm. Diaphragm: Small hiatal hernia. Gallbladder and bile ducts: Gallbladder has been removed. Bile ducts are not appreciably dilated. Spleen: There are scattered calcified granulomas within the spleen, longstanding, otherwise spleen is unremarkable. Kidneys and ureters: Large left renal cyst partially visualized, likely benign Bones/joints: Subacute healing fracture lateral aspect right 6th rib. Mild-moderate multilevel degenerative changes of the thoracic spine. No acute bony abnormalities. Soft tissues: Unremarkable. IMPRESSION: 1. No acute, posttraumatic abnormalities. 2. Subacute healing fracture right 6th rib. 3. Cardiomegaly with mild interstitial changes likely chronic. 4. 1 cm ground-glass nodule right upper lobe, nonspecific. Recommend repeat CT chest in 1 year for continued surveillance. 5. Additional chronic findings as above. COMMENTS: Consistent with the [employer]'s Incidental Findings Committee white paper (J Am Niko Radiol 2018): Any incidental renal lesion less than 1 cm or classified as too small to characterize, or any incidental cystic renal lesion characterized as simple-appearing, is likely benign. No follow-up imaging is recommended for these lesions per consensus recommendations based on imaging criteria.
--- NOTE | 2022-08-14 13:24 | CT_ITS ---
PROCEDURE INFORMATION: Exam: CT Head Without Contrast Exam date and time: 08/14/2022 1:43 PM Age: 82 years old Clinical indication: Injury or trauma; Fall; Other: Facial bruising TECHNIQUE: Imaging protocol: Computed tomography of the head without contrast. Radiation optimization: All CT scans at this facility use at least one of these dose optimization techniques: automated exposure control; mA and/or kV adjustment per patient size (includes targeted exams where dose is matched to clinical indication); or iterative reconstruction. REPORTING DATA: Count of CT and Cardiac NM exams in prior 12 months: This patient has received 0 known CTs and 0 known cardiac nuclear medicine studies in the 12 months prior to the current study. COMPARISON: US CA CAROTID DUPLEX BI 05/27/2021 10:29 AM FINDINGS: Brain: Age-related involutional changes and chronic microvascular ischemic disease. No evidence for acute transcortical infarct. No mass effect or midline shift. No extra-axial collection. No acute intracranial hemorrhage. Basal cisterns are patent. Cerebral ventricles: No ventriculomegaly. Paranasal sinuses: Visualized sinuses are unremarkable. No fluid levels. Mastoid air cells: Visualized mastoid air cells are well aerated. Orbital cavities: Bilateral cataract surgery. Bones/joints: Unremarkable. No acute fracture. Soft tissues: Unremarkable. IMPRESSION: No evidence for acute transcortical infarct, acute intracranial hemorrhage, or mass effect.
--- NOTE | 2022-08-14 13:24 | CT_ITS ---
PROCEDURE INFORMATION: Exam: CT Abdomen And Pelvis Without Contrast Exam date and time: 08/14/2022 1:49 PM Age: 82 years old Clinical indication: Injury or trauma; Fall; Sprain or strain; Additional info: Fall, pain TECHNIQUE: Imaging protocol: Computed tomography of the abdomen and pelvis without contrast. Radiation optimization: All CT scans at this facility use at least one of these dose optimization techniques: automated exposure control; mA and/or kV adjustment per patient size (includes targeted exams where dose is matched to clinical indication); or iterative reconstruction. REPORTING DATA: Count of CT and Cardiac NM exams in prior 12 months: This patient has received 0 known CTs and 0 known cardiac nuclear medicine studies in the 12 months prior to the current study. COMPARISON: CT CHEST WO CON 08/14/2022 1:48 PM FINDINGS: Lungs: Lung bases are clear. Liver: Normal. No mass. Gallbladder and bile ducts: Gallbladder has been removed. Bile ducts are not appreciably dilated. Pancreas: Unremarkable. Main pancreatic duct is not significantly dilated. Spleen: There are scattered calcified granulomas within the spleen, longstanding, otherwise spleen is unremarkable. Adrenal glands: Normal. No mass. Kidneys and ureters: Large benign-appearing left renal cyst otherwise kidneys are unremarkable. Stomach and bowel: See Vasculature finding. Appendix: No evidence of appendicitis. Intraperitoneal space: Unremarkable. No free air. No significant fluid collection. Vasculature: There are diffuse atherosclerotic changes with calcification of the abdominal aorta and iliac vessels. There is no aortic aneurysm.Scattered diverticuli large bowel without evidence of diverticulitis. Lymph nodes: Unremarkable. No enlarged lymph nodes. Urinary bladder: Unremarkable as visualized. Reproductive: Uterus has been removed. Bones/joints: Mild degenerative changes mid-lower lumbar spine. No acute bony abnormalities. Soft tissues: Lower abdominal wall mesh intact. Mild residual diastasis of the lower abdominal wall. IMPRESSION: 1. No evidence of abdominal or pelvic injury. 2. Additional chronic findings as above.
--- NOTE | 2022-08-14 13:29 | PC.NURSE ---
rad at bedside for portable cxr
--- NOTE | 2022-08-14 13:36 | PC.NURSE ---
blood sent to lab at this time
--- NOTE | 2022-08-14 13:39 | PC.NURSE ---
pt to Ct
[2022-08-14 13:41] LABS: Basophils # 0.1 K/mm3 (0-0.2); Basophils % 0.4 % (0.1-2.0); Eosinophils # 0.3 K/mm3 (0.0-0.4); Eosinophils % 3.1 % (0.1-12.0); Hematocrit 30.7 % (37.0-47.0); Hemoglobin 9.9 g/dL (12.2-16.2); Lymphocytes # 1.5 K/mm3 (0.7-4.5); Mean Corpuscular HGB Conc 32.4 g/dL (31.8-35.4); Mean Corpuscular Hemoglobin 27.6 pg (27.0-31.2); Mean Corpuscular Volume 85.2 fl (81-99); Mean Platelet Volume 8.3 fl (7.4-10.4); Monocytes # 0.6 K/mm3 (0.1-1.0); Monocytes % 5.9 % (1.7-9.3); Neutrophils # 8.3 K/mm3 (1.8-7.8); Neutrophils % 76.5 % (37.0-80.0); Platelet Count 289 K/mm3 (142-424); White Blood Count 10.8 K/mm3 (4.8-10.8)
[2022-08-14 13:43] LABS: Chloride 96 mmol/L (98-107)
[2022-08-14 13:44] LABS: Potassium 3.2 mmoL/L (3.5-5.1); Sodium 136 mmol/L (136-145)
[2022-08-14 13:46] LABS: Alanine Aminotransferase 26 U/L (12-78); Albumin/Globulin Ratio 1.1 (1.1-1.8); Alkaline Phosphatase 108 U/L (38-126); Anion Gap 11.2 mEq/L (5-15); Aspartate Amino Transferase 38 U/L (14-36); Bilirubin,Total 0.6 mg/dl (0.2-1.3); Blood Urea Nitrogen 22 mg/dl (7-17); Carbon Dioxide 32 mmol/L (22.0-30.0); Creatinine Clearance Estimated 61 mL/min (50-200); Estimated Glomerular Filt Rate 60 ml/min (>60); GFR (African American) 72 ML/MIN (>60); Globulin 2.7 g/dL (1.3-3.2); Total Protein,Serum 5.7 g/dl (6.3-8.2)
[2022-08-14 13:47] LABS: Calcium 8.4 mg/dl (8.4-10.2); Glucose 121 mg/dl (74-100)
--- NOTE | 2022-08-14 13:53 | PC.NURSE ---
pt return from CT
--- NOTE | 2022-08-14 14:04 | PC.NURSE ---
pt incontinent of urine, linens changed, depends placed on pt. warm blankets on pt. daughter at BS
--- NOTE | 2022-08-14 14:21 | HMH.EDGENADL ---
Discharge Plan Disposition Patient Disposition: Home, Self-Care Condition: Good Chief Complaint: PAIN Prescriptions Prescriptions: No Action pantoprazole 40 mg tablet,delayed release (DR/EC) 40 mg PO DAILY metoprolol tartrate 25 mg tablet 25 mg PO BID ondansetron HCl 4 mg tablet 4 mg PO Q8H PRN Label Comments: TAKE 1 TABLET BY MOUTH EVERY 8 HOURS NEEDED Xarelto 15 mg tablet 15 mg PO DAILY Qty: 30 5RF Rx Instructions: must administer with evening meal furosemide [Lasix] 20 mg tablet 20 mg PO DAILY Qty: 90 1RF atorvastatin 40 mg tablet 40 mg PO HS Qty: 90 3RF spironolactone [Aldactone] 25 mg tablet 25 mg PO DAILY Qty: 30 2RF magnesium oxide 400 mg magnesium tablet 400 mg PO DAILY Qty: 30 0RF Referrals Follow up/Referrals: Corrina Rausch [Primary Care Provider] - See instructions Clinical Impressions Clinical Impression: Dementia Discharge ED Provider: Nahid Estrada General Adult HPI General Chief complaint: PAIN Stated complaint: pain Time Seen by Provider: 08/14/22 13:20 Mode of Arrival: EMS Source of Information: Patient and EMS Limitations: Altered Mental Status Description of Symptoms (Recalled from ER Triage Doc. by RN): EMS reports they were called to pts residents with c/o neck and mid back pain. EMS reports when they arrived at pts home, pt was sitting on the side of the bed. Pts family said she complained of not feeling well since she woke up this morning and complained of pain. Pt has hx of dementia. Family is not here at this time, pt is unable to answer my questions. History of Present Illness HPI narrative: 82yo F presents to the ER initially complaining of neck and low back pain. Family stated the patient is complained about not feeling well since she woke up this morning. Patient is a history of dementia. On arrival, the patient has no complaint at all. She believes that she has at [facility]. Denies chest pain, shortness of breath. She does endorses very mild mid back pain. No fever. Reports good appetite and normal bowel function Related Data Home Medications Medication Instructions Recorded Confirmed pantoprazole 40 mg tablet,delayed 40 mg PO DAILY 06/30/21 08/11/22 release metoprolol tartrate 25 mg tablet 25 mg PO BID 08/11/22 08/11/22 ondansetron HCl 4 mg tablet 4 mg PO Q8H PRN 08/11/22 08/11/22 Previous Rx's Medication Instructions Recorded furosemide 20 mg tablet (Lasix) 20 mg PO DAILY #90 tabs 02/14/22 atorvastatin 40 mg tablet 40 mg PO HS Cholesterol #90 tabs 06/06/22 magnesium oxide 400 mg PO DAILY #30 tabs 08/11/22 rivaroxaban 15 mg tablet 15 mg PO DAILY #30 tabs 08/11/22 spironolactone 25 mg tablet 25 mg PO DAILY #30 tabs 08/11/22 (Aldactone) Allergies Allergy/AdvReac Type Severity Reaction Status Date / Time No Known Allergies Allergy Verified 08/11/22 10:05 [facility] Disclaimer: The information contained in this section may have been updated after the patient was seen, as this information can be updated by other users. Medical History Coronary artery disease Edema Syncope Surgical History S/P TAVR (transcatheter aortic valve replacement) Social History Smoking Status: Never smoker alcohol intake: never current occupational status: retired Travel in the last 8 weeks: Inside the [place] household members: none housing: house ROS Obtained: Yes unobtainable due to mental status Physical Exam General General appearance: alert and in no apparent distress Head Head exam: other (Significant ecchymosis, old, about the face) Eye Eye exam: Present normal appearance and EOMI ENT ENT exam: Present mucous membranes moist Neck Neck exam: Present trachea midline Chest Chest inspection: Present sym
[2022-08-14 14:32] VITALS: BP 131/79; PULSE 88; RESP 18; RESP 20; TEMP 36.6; O2SAT 96; O2SAT 98
== END 2022-08-14 14:52 | disposition home or self-care (01) ==
PROVIDERS: Emergency Provider Family Medicine; PCP Family Medicine
DX: M54.2 Cervicalgia (principal); M54.9 Dorsalgia, unspecified; F03.90 Unspecified dementia, unspecified severity, without behavioral disturbance, psychotic disturbance, mood disturbance, and anxiety; I48.91 Unspecified atrial fibrillation
CPT/HCPCS: 70450; 71045; 71250; 72125; 74176; 80053; 85025; 93005; 99285

== ENCOUNTER → 2022-08-23 07:45 | Outpatient (CLI) | payer MEDICARE, MEDICAID, SELFPAY | LOC: RT 07:45 | PROVIDERS: PCP Family Medicine; Visit Provider Nurse Practitioner | DX: R06.02 Shortness of breath (principal) | CPT/HCPCS: 93306 ==

== ENCOUNTER 2022-08-24 21:10 | Observation (INO) | payer MEDICARE, MEDICAID, SELFPAY ==
--- NOTE | 2022-08-24 21:23 | PC.NURSE ---
Pt arrived to floor via stretcher @ [phone]
[2022-08-24 21:29] VITALS: BMI 38.0
[2022-08-24 21:42] VITALS: PULSE 100
--- NOTE | 2022-08-24 21:45 | XR_ITS ---
PROCEDURE INFORMATION: Exam: XR Chest Exam date and time: 08/24/2022 10:02 PM Age: 82 years old Clinical indication: Shortness of breath; Additional info: Shortness of air TECHNIQUE: Imaging protocol: Radiologic exam of the chest. Views: 1 view. COMPARISON: CT CHEST WO CON 08/14/2022 1:48 PM FINDINGS: Tubes, catheters and devices: Aortic valve prosthesis is faintly visualized. Lungs: Reticular opacities are noted at each lung base. Pleural spaces: No pleural effusion. No pneumothorax. Heart/Mediastinum: Severe cardiomegaly. Vasculature: Calcified aortic arch without dilation. Bones/joints: Age appropriate. IMPRESSION: Reticular opacities at each lung base suggest edema in the setting of severe cardiomegaly. Atypical pneumonitis is not excluded.
[2022-08-24 21:50] VITALS: BP 125/89; PULSE 97; RESP 24; TEMP 36.5; O2SAT 93
--- NOTE | 2022-08-24 21:50 | EXP.HP ---
History of Present Illness *Admission Date: 08/24/22 *Reason for visit:: Shortness of air, leg swelling *History of present illness: Ms. Mckinley is a 82-year-old female with a past medical history of HFpEF, Atrial Fibrillation on chronic anticoagulation, history of TAVR, DM and Hypertension. She presents as a transfer from [facility] due to a 1-day history of Shortness of air associated with bilateral lower extremity swelling. She denies orthopnea or paroxysmal nocturnal dyspnea. In the ER at [facility] she was noted to be hypoxic on room air in the 80's. Cxray showed pulmonary vascular congestion and bilateral pleural effusions. BNP was elevated at 715. EKG showed atrial fibrillation with rate in the 80's. High sensitivy troponin was within normal limits at 23.5. ABG showed a pH of 7.440, there was concern that the sample was venous in that the pO2 was 39. In the ER at [facility] the patient was given 20 mg of Lasix iv and placed on oxygen at 2L with improvement in oxygen saturation to the 90's. The Attending ER Physician Dr. Guzman spoke with Stock Worker And Deliverer Dr. Alanis who recommended transfer to the facility. The patient is admitted with initial impression: CHF exacerbation. [facility] Disclaimer: The information contained in this section may have been updated after the patient was seen, as this information can be updated by other users. Medical History Congestive heart failure Coronary artery disease Diabetes mellitus, type 2 Edema History of gastroesophageal reflux (GERD) History of heart attack Pneumonia Syncope Surgical History History of hysterectomy S/P TAVR (transcatheter aortic valve replacement) Family History Other No significant family history Social History Smoking Status: Former smoker alcohol intake: never current occupational status: retired Travel in the last 8 weeks: [place] the [place] household members: none housing: house Review of Systems Review of Systems Review of systems:: pertinent systems reviewed and negative unless documented below Constitutional Constitutional: Reports system reviewed and no additional complaints, except as documented Eyes Eyes: Reports system reviewed and no additional complaints, except as documented ENT Ears, Nose, Mouth, and Throat: Reports system reviewed and no additional complaints, except as documented *Cardiovascular Cardiovascular: Reports dyspnea, Reports dyspnea on exertion and Reports leg edema *Respiratory Respiratory: Reports dyspnea and Reports dyspnea on exertion *Gastrointestinal Gastrointestinal: Reports system reviewed and no additional complaints, except as documented *Genitourinary Genitourinary: Reports system reviewed and no additional complaints, except as documented *Musculoskeletal Musculoskeletal: Reports system reviewed and no additional complaints, except as documented Integumentary/Breasts Skin/Breast: Reports system reviewed and no additional complaints, except as documented *Neurologic Neurologic: Reports system reviewed and no additional complaints, except as documented Psychiatric Psychiatric: Reports system reviewed and no additional complaints, except as documented Endocrine Endocrine: Reports system reviewed and no additional complaints, except as documented Hematologic/Lymphatic Hematologic/Lymphatic: Reports system reviewed and no additional complaints, except as documented Allergic/Immunologic Allergic/Immunologic: Reports system reviewed and no additional complaints, except as documented Meds Home Medications and Allergies Home Medications Medication Instructions Recorded Confirmed Type pantoprazole 40 mg tablet,delayed 40 mg PO DAILY Acid reflux 06/30/21
[2022-08-24 22:06] LABS: Coronavirus 19, PCR Not Detected (NotDetected); Influenza A, PCR Not Detected (NotDetected); Influenza B, PCR Not Detected (NotDetected)
--- NOTE | 2022-08-24 22:07 | PC.NURSE ---
1939- MD Zeke called house at this time informing of pt being sent from midnight for CHF exacerbation. 2001- [facility] transfer [place] called at this time requesting transfer. Fax number provided for facesheet to be sent here and [facility]balHospitalist spoke with [facility] at this time accepting admission. Pt assigned to room 214 and report number given to [facility] ED staff.
[2022-08-24 22:15] VITALS: O2SAT 93
[2022-08-24 22:15] LABS: Basophils % 0.3 % (0.1-2.0); Eosinophils % 0.4 % (0.1-12.0); Hematocrit 30.8 % (37.0-47.0); Hemoglobin 9.6 g/dL (12.2-16.2); Lymphocytes # 0.5 K/mm3 (0.7-4.5); Lymphocytes % 5.7 % (10-50); Mean Corpuscular Hemoglobin 26.2 pg (27.0-31.2); Mean Corpuscular Volume 84.6 fl (81-99); Mean Platelet Volume 7.9 fl (7.4-10.4); Monocytes # 0.1 K/mm3 (0.1-1.0); Monocytes % 1.4 % (1.7-9.3); Neutrophils # 7.6 K/mm3 (1.8-7.8); Neutrophils % 92.1 % (37.0-80.0); Platelet Count 370 K/mm3 (142-424); Red Blood Count 3.64 M/mm3 (4.20-5.40); Red Cell Distribution Width 18.1 % (11.5-17.5); White Blood Count 8.3 K/mm3 (4.8-10.8)
[2022-08-24 22:18] LABS: Chloride 107 mmol/L (98-107); MANUAL DIFFERENTIAL MANUAL DIFFERENTIAL (MANUAL DIFF); Potassium 4.1 mmoL/L (3.5-5.1); Sodium 139 mmol/L (136-145)
[2022-08-24 22:20] LABS: Blood Urea Nitrogen 23 mg/dl (7-17); Creatinine Clearance Estimated 65 mL/min (50-200); Estimated Glomerular Filt Rate 53 ml/min (>60); GFR (African American) 64 ML/MIN (>60)
[2022-08-24 22:21] LABS: Alanine Aminotransferase 28 U/L (12-78); Albumin Level 3.2 g/dl (3.5-5.0); Albumin/Globulin Ratio 1.2 (1.1-1.8); Alkaline Phosphatase 125 U/L (38-126); Anion Gap 13.1 mEq/L (5-15); Aspartate Amino Transferase 37 U/L (14-36); Bilirubin,Total 0.7 mg/dl (0.2-1.3); Calcium 8.4 mg/dl (8.4-10.2); Carbon Dioxide 23 mmol/L (22.0-30.0); Globulin 2.7 g/dL (1.3-3.2); Glucose 163 mg/dl (74-100); Total Protein,Serum 5.9 g/dl (6.3-8.2)
[2022-08-24 22:30] LABS: NT Pro Brain Natriuretic Pep. 8380 pg/mL (0-450)
[2022-08-24 22:33] LABS: Troponin I 0.02 ng/ml (0.00-0.034)
--- NOTE | 2022-08-24 22:36 | ECG_ITS ---
APPROVED REPORT Exam: Resting ECG HR:90 bpm ECG Measurements Heart Rate 90 AXES QRSd 86 QRS 81 QT 361 T 55 QTc 408 Conclusion ATRIAL FIBRILLATION MINIMAL ST DEPRESSION [0.025+ mV ST DEPRESSION] ABNORMAL RHYTHM ECG UNCONFIRMED REPORT Electronically signed by : Madi Hernandez MD 08/25/2022 21:00:18
[2022-08-24 22:48] VITALS: RESP 24
[2022-08-24 23:15] LABS: Lymphocytes % 4 % (10-50); Neutrophils % 96 % (42-76); Total Cells Counted 100
[2022-08-24 23:16] LABS: Hypochromasia 1+; Platelet Estimate Normal
[2022-08-24 23:45] VITALS: BP 149/60; PULSE 88; RESP 22; TEMP 36.6; O2SAT 95
[2022-08-25] VITALS (11 sets, daily range): BP systolic 131–144; BP diastolic 52–88; PULSE 70–100; RESP 16–18; TEMP 36.6–36.8; O2SAT 93–98; BMI 38.0
[2022-08-25 01:39] LABS: Troponin I < 0.01 ng/ml (0.00-0.034)
[2022-08-25 04:31] LABS: Troponin I 0.02 ng/ml (0.00-0.034)
[2022-08-25 04:39] LABS: POC Glucose,Bedside 178 (70-110)
--- NOTE | 2022-08-25 05:26 | PC.NURSE ---
NO ACUTE CHANGES SINCE PT ARRIVED TO THE FLOOR. PT HAS RESTED WELL. C/O CHEST PAIN/ SORENESS X1 THIS SHIFT. TREATED WITH PRN MEDS. VSS. PUREWICK IN PLACE AND IS DRAINING CLEAR YELLOW URINE. PT HAS HAD 3L OF URINE OUT SINCE IV LASIX. PT HAS STATED THAT IT IS ALREADY EASIER FOR HER TO BREATH. LUNG SOUNDS REMAIN CLEAR. BED ALARM IN PLACE.
[2022-08-25 05:44] LABS: POC Glucose,Bedside 186 (70-110)
[2022-08-25 06:41] LABS: Chloride 101 mmol/L (98-107); Sodium 138 mmol/L (136-145)
[2022-08-25 06:43] LABS: Blood Urea Nitrogen 22 mg/dl (7-17); Creatinine Clearance Estimated 66 mL/min (50-200); Estimated Glomerular Filt Rate 53 ml/min (>60); GFR (African American) 64 ML/MIN (>60)
[2022-08-25 06:44] LABS: Alanine Aminotransferase 33 U/L (12-78); Albumin Level 3.2 g/dl (3.5-5.0); Albumin/Globulin Ratio 1.1 (1.1-1.8); Alkaline Phosphatase 119 U/L (38-126); Aspartate Amino Transferase 45 U/L (14-36); Bilirubin,Total 0.7 mg/dl (0.2-1.3); Calcium 8.4 mg/dl (8.4-10.2); Carbon Dioxide 28 mmol/L (22.0-30.0); Globulin 2.8 g/dL (1.3-3.2); Glucose 180 mg/dl (74-100)
[2022-08-25 06:48] LABS: Basophils % 0.1 % (0.1-2.0); Eosinophils % 0.1 % (0.1-12.0); Hematocrit 30.2 % (37.0-47.0); Hemoglobin 9.6 g/dL (12.2-16.2); Lymphocytes # 0.5 K/mm3 (0.7-4.5); Lymphocytes % 6.6 % (10-50); Mean Corpuscular HGB Conc 31.7 g/dL (31.8-35.4); Mean Corpuscular Hemoglobin 26.6 pg (27.0-31.2); Mean Corpuscular Volume 83.7 fl (81-99); Mean Platelet Volume 8.4 fl (7.4-10.4); Monocytes # 0.2 K/mm3 (0.1-1.0); Monocytes % 1.9 % (1.7-9.3); Neutrophils # 7.3 K/mm3 (1.8-7.8); Neutrophils % 91.2 % (37.0-80.0); Platelet Count 371 K/mm3 (142-424)
[2022-08-25 06:53] LABS: NT Pro Brain Natriuretic Pep. 9720 pg/mL (0-450)
--- NOTE | 2022-08-25 07:22 | EXP.ACUTE.PN ---
Subjective *Date: 08/25/22 *Time: 13:14 Interval history: 82 year old female that presented to [facility] ED for c/o of SOA and bilateral lower leg swelling. PMHX of HFpEF, A fib, diabtetes, and HTN. In the [facility] ED she was hypoxic on room air. Her oxygen saturation was in the 80's. Her BNP was 715 and chest xray showed fluid overload. She was given 20mg of lasix and placed on 2L of oxygen. She was transferred to the [facility] for further medical management. Her care will be managed by the Hospitalist team. Cardiology is consulted and appreciate their recommendations. Upon arrival to the medical floor at [facility], she was placed on 3L 02 and given an additional 40mg of lasix. Her BNP was 8380. Since admission she has put out over 4L of fluid. The plan is to wean oxygen as tolerated, continue lasix 40mg BID, start home aldactone 25 mg daily and monitor kidney function. Medical Exam Vital signs and Labs for Last 24 Hours: Vital Signs Temp Pulse Pulse Resp BP Pulse Ox 08/25/22 04:00 80 08/25/22 04:00 97.8 F 80 16 131/78 98 08/25/22 00:00 90 08/24/22 23:45 97.9 F 88 22 149/60 H 95 08/24/22 22:48 24 08/24/22 21:42 100 H 08/24/22 21:50 97.7 F 97 H 24 125/89 93 L Intake and Output 08/24/22 08/24/22 08/25/22 15:59 23:59 07:59 Output Total 1000 / 1000 1999 Balance -1000 / -1000 -1999 / -1999 Output: Output, Urine Amount 1000 / 1000 1999 Other: Number of Unmeasured Voids 1 Weight 97.25 kg 97.386 kg Patient Weight 08/25/22 23:59 Weight 97.386 kg Laboratory Results - last 24 hr 08/24/22 21:50: SARS-CoV-2 (PCR) Not detected, Influenza A Untype (PCR) Not detected, Influenza Type B (PCR) Not detected 08/24/22 21:57: POC Glucose 178 H 08/24/22 22:02: WBC 8.3, RBC 3.64 L, Hgb 9.6 L, Hct 30.8 L, MCV 84.6, MCH 26.2 L, MCHC 31.0 L, RDW 18.1 H, Plt Count 370, MPV 7.9, Neut % (Auto) 92.1 H, Lymph % (Auto) 5.7 L, [place] % (Auto) 1.4 L, Eos % (Auto) 0.4, Baso % (Auto) 0.3, Neut # (Auto) 7.6, Lymph # (Auto) 0.5 L, [place] # (Auto) 0.1, Eos # (Auto) 0.0, Baso # (Auto) 0.0, Total Counted 100, Neutrophils % (Manual) 96 H, Lymphocytes % (Manual) 4 L, Platelet Estimate Normal, Hypochromasia 1+ 08/24/22 22:02: Sodium 139, Potassium 4.1, Chloride 107, Carbon Dioxide 23, Anion Gap 13.1, BUN 23 H, Creatinine 1.00, Estimated Creat Clear 65, Estimated GFR 53 L, Est GFR ( Amer) 64, Glucose 163 H, Calcium 8.4, Total Bilirubin 0.7, AST 37 H, ALT 28, Alkaline Phosphatase 125, Total Protein 5.9 L, Albumin 3.2 L, Globulin 2.7, Albumin/Globulin Ratio 1.2 08/24/22 22:02: Troponin I 0.02, NT-Pro-B Natriuret Pep 8380 H 08/25/22 01:00: Troponin I < 0.01 08/25/22 04:00: Troponin I 0.02 08/25/22 04:10: WBC 8.0, RBC 3.60 L, Hgb 9.6 L, Hct 30.2 L, MCV 83.7, MCH 26.6 L, MCHC 31.7 L, RDW 18.0 H, Plt Count 371, MPV 8.4, Neut % (Auto) 91.2 H, Lymph % (Auto) 6.6 L, [place] % (Auto) 1.9, Eos % (Auto) 0.1, Baso % (Auto) 0.1, Neut # (Auto) 7.3, Lymph # (Auto) 0.5 L, [place] # (Auto) 0.2, Eos # (Auto) 0.0, Baso # (Auto) 0.0 08/25/22 04:10: Sodium 138, Potassium 4.0, Chloride 101, Carbon Dioxide 28, Anion Gap 13.0, BUN 22 H, Creatinine 1.00, Estimated Creat Clear 66, Estimated GFR 53 L, Est GFR ( Amer) 64, Glucose 180 H, Calcium 8.4, Total Bilirubin 0.7, AST 45 H, ALT 33, Alkaline Phosphatase 119, Total Protein 6.0 L, Albumin 3.2 L, Globulin 2.8, Albumin/Globulin Ratio 1.1 08/25/22 04:10: NT-Pro-B Natriuret Pep 9720 H 08/25/22 05:33: POC Glucose 186 H I & O for Labs for Last 24 Hours: Intake & Output 08/22/22 08/23/22 08/24/22 08/25/22 23:59 23:59 23:59 23:59 Output Total 999 / 999 Balance -1000 / -1000 -1999 / Weight 97.25 kg 97.386 kg Head: Present atraumatic Eyes: Present as per HPI ENT: Present normal exam Neck: Present normal inspection and full ROM Respiratory: Present crackles and symmetric chest movement; Absent accessory muscle use Cardiac: Present Reg Rate
--- NOTE | 2022-08-25 07:27 | HMH.PHAINT1 ---
Pharmacy Intervention Comments: Home medication list verified through list from outside pharmacy and note from recent cardiology office visit.
--- NOTE | 2022-08-25 09:35 | EXP.CARD.CON ---
History of Present Illness History of Present Illness Consult date: 08/25/22 Requesting physician: Dennis Lackey Consult reason: congestive heart failure Chief complaint: soa and LE edema History of present illness: 82 year old white female with a past medical history of CAD with stenting, HFpEF, Atrial Fibrillation on chronic anticoagulation, history of TAVR, DM and Hypertension presented to [facility] ER with complaints of SOA and bilateral LE edema x 1 day. Upon presentation she was noted to be hypoxic on room air in the 80's.? Chest xray showed pulmonary vascular congestion and bilateral pleural effusions.? BNP was elevated at 715.? EKG showed atrial fibrillation with rate in the 80's.? High sensitivity troponin was within normal limits at 23.5.? ABG showed a pH of 7.440, there was concern that the sample was venous in that the pO2 was 39. In the ER the patient was given 20 mg of Lasix iv and placed on oxygen at 2L with improvement in oxygen saturation to the 90's.? The attending ER Physician Dr. Guzman spoke with Hogshead Opener Dr. Alanis who recommended transfer to this facility for chf exacerbation and cardiology consult.?Patient was diuresed last night and is -3 liters this am. She reports symptoms are improving. She denies current chest pain. Morning labs reviewed and echo is pending. [facility] Disclaimer: The information contained in this section may have been updated after the patient was seen, as this information can be updated by other users. Medical History Congestive heart failure Coronary artery disease Diabetes mellitus, type 2 Edema History of gastroesophageal reflux (GERD) History of heart attack Pneumonia Syncope Surgical History History of hysterectomy S/P TAVR (transcatheter aortic valve replacement) Family History Other No significant family history Social History Smoking Status: Former smoker alcohol intake: never current occupational status: retired Travel in the last 8 weeks: Inside the [place] household members: none housing: house Review of Systems Review of Systems Review of systems:: pertinent systems reviewed and negative unless documented below *Cardiovascular Cardiovascular: Reports chest pain, Reports dyspnea and Reports leg edema *Respiratory Respiratory: Reports dyspnea *Neurologic Neurologic: Reports system reviewed and no additional complaints, except as documented Exam Data for Last 24 hours Vital signs and Labs for Last 24 Hours: Temp Pulse Resp BP Pulse Ox 97.9 F 81 18 139/60 94 L 08/25/22 08:00 08/25/22 08:00 08/25/22 08:00 08/25/22 08:00 08/25/22 08:00 Laboratory Results - last 24 hr 08/24/22 21:50: SARS-CoV-2 (PCR) Not detected, Influenza A Untype (PCR) Not detected, Influenza Type B (PCR) Not detected 08/24/22 21:57: POC Glucose 178 H 08/24/22 22:02: WBC 8.3, RBC 3.64 L, Hgb 9.6 L, Hct 30.8 L, MCV 84.6, MCH 26.2 L, MCHC 31.0 L, RDW 18.1 H, Plt Count 370, MPV 7.9, Neut % (Auto) 92.1 H, Lymph % (Auto) 5.7 L, [place] % (Auto) 1.4 L, Eos % (Auto) 0.4, Baso % (Auto) 0.3, Neut # (Auto) 7.6, Lymph # (Auto) 0.5 L, [place] # (Auto) 0.1, Eos # (Auto) 0.0, Baso # (Auto) 0.0, Total Counted 100, Neutrophils % (Manual) 96 H, Lymphocytes % (Manual) 4 L, Platelet Estimate Normal, Hypochromasia 1+ 08/24/22 22:02: Sodium 139, Potassium 4.1, Chloride 107, Carbon Dioxide 23, Anion Gap 13.1, BUN 23 H, Creatinine 1.00, Estimated Creat Clear 65, Estimated GFR 53 L, Est GFR ( Amer) 64, Glucose 163 H, Calcium 8.4, Total Bilirubin 0.7, AST 37 H, ALT 28, Alkaline Phosphatase 125, Total Protein 5.9 L, Albumin 3.2 L, Globulin 2.7, Albumin/Globulin Ratio 1.2 08/24/22 22:02: Troponin I 0.02, NT-Pro-B Natriuret Pep 8380 H 08/25/22 01:00: Troponin I < 0.01 08/25/22 04:00:
--- NOTE | 2022-08-25 11:14 | HMH.PTEV ---
Physical Therapy Evaluation Rehab PT IP Evaluation Start: 08/25/22 10:20 Freq: ONCE Status: Active Protocol: Document 08/25/22 10:20 PHORNE (Rec: 08/25/22 11:14 PHORNE [id number]) Subjective/History History History 82 yowf adm to [facility] with CHF exac. She reports she lives with her son, 1-2 steps to enter the home, and she is generally independent with all mobility without AD at baseline. She presents with B LE 2+ pitting edema, and she c /o B foot pain with WBing. Subjective Subjective Pt agrees to mobility assessment despite pain in her fet this am. Rehab PT IP Eval Objective Appearance Patient Behavior Appropriate Patient Orientation Person,Place Difficulty following instructions none Speech Pattern Clear Ambulation Patient Able to Ambulate Yes Ambulation Observation IP General Gait Pattern Observation Shuffling Step Ambulation Distance (feet) 5 Ambulation Assistive Device None Ambulation Ability Minimal x 1 (25% assist) Balance Ability to Arise Able, uses arms to help Sitting Balance Steady, safe Standing Balance Steady, wide stance Dynamic Sitting Balance Ability Good Dynamic Standing Balance Ability Fair Transfers Bed Transfer Ability Supervision/Stand by Chair Transfer Ability Minimal x 1 (25% assist) Sit to Stand Bed Transfer Ability Minimal x 1 (25% assist) Sit to Stand Chair Transfer Ability Minimal x 1 (25% assist) ROM All Extremities PT ROM Status WFL MMT All Extremities PT MMT WFL Rehab PT IP prob,goals,plan Problems Date of Evaluation: 08/25/22 PT IP Problems Bed Mobility,Transfers,Gait Rehab Potential Rehab Potential Good Plan PT Intervention Plan Bed Mobility,Transfers,Gait, Therapeutic Exercise PT Plan Frequency Daily Duration LOS Discharge Goals Bed Transfer Ability Independent Sit to Stand Chair Transfer Ability Contact Guard/Hand Hold Ambulation Assistive Device Rolling Walker Ambulation Distance (feet) 20 Discharge Plan PT Discharge Plan Pt is appropriate to return home once medically stable for d/c. Recommend Home Health therapy as appropriate after d /c from hospital. She may
[2022-08-25 11:48] LABS: POC Glucose,Bedside 122 (70-110)
[2022-08-25 17:12] LABS: POC Glucose,Bedside 129 (70-110)
--- NOTE | 2022-08-25 17:32 | PC.NURSE ---
pt has rested in the chair in her room this shift. pt is on room air, up to chair. pt is slightly disoriented to time but is otherwise appropriate. no complaints or distress noted at this time.
[2022-08-25 20:16] LABS: POC Glucose,Bedside 134 (70-110)
[2022-08-26] VITALS: BP 116/46; PULSE 70; PULSE 81; RESP 18; TEMP 36.6; O2SAT 92
[2022-08-26 04:00] VITALS: BP 125/81; PULSE 70; PULSE 84; RESP 18; TEMP 36.7; O2SAT 92; BMI 35.9
--- NOTE | 2022-08-26 04:25 | PC.NURSE ---
NO ACUTE CHANGES THIS SHIFT. PT HAS RESTED WELL. CONFUSED AT TIMES. VSS. REMAINS ON ROOM AIR. LUNGS SOUNDS CLEAR. PT STATES SHE IS FEELING MUCH BETTER.
[2022-08-26 06:00] LABS: POC Glucose,Bedside 109 (70-110)
[2022-08-26 06:22] LABS: Chloride 99 mmol/L (98-107); Potassium 4.2 mmoL/L (3.5-5.1); Sodium 138 mmol/L (136-145)
[2022-08-26 06:24] LABS: Blood Urea Nitrogen 34 mg/dl (7-17); Creatinine Clearance Estimated 52 mL/min (50-200); Estimated Glomerular Filt Rate 43 ml/min (>60); GFR (African American) 52 ML/MIN (>60)
[2022-08-26 06:25] LABS: Alanine Aminotransferase 24 U/L (12-78); Albumin/Globulin Ratio 1.1 (1.1-1.8); Alkaline Phosphatase 102 U/L (38-126); Anion Gap 9.2 mEq/L (5-15); Aspartate Amino Transferase 39 U/L (14-36); Bilirubin,Total 0.6 mg/dl (0.2-1.3); Calcium 8.4 mg/dl (8.4-10.2); Carbon Dioxide 34 mmol/L (22.0-30.0); Globulin 2.8 g/dL (1.3-3.2); Glucose 101 mg/dl (74-100); Magnesium 1.9 mg/dl (1.6-2.3); Total Protein,Serum 5.8 g/dl (6.3-8.2)
[2022-08-26 06:33] LABS: Basophils # 0.1 K/mm3 (0-0.2); Basophils % 0.6 % (0.1-2.0); Eosinophils # 0.4 K/mm3 (0.0-0.4); Eosinophils % 3.5 % (0.1-12.0); Hematocrit 31.1 % (37.0-47.0); Hemoglobin 9.7 g/dL (12.2-16.2); Lymphocytes # 1.6 K/mm3 (0.7-4.5); Lymphocytes % 14.2 % (10-50); Mean Corpuscular HGB Conc 31.3 g/dL (31.8-35.4); Mean Corpuscular Hemoglobin 25.7 pg (27.0-31.2); Mean Corpuscular Volume 82.1 fl (81-99); Mean Platelet Volume 7.9 fl (7.4-10.4); Monocytes # 0.9 K/mm3 (0.1-1.0); Monocytes % 7.8 % (1.7-9.3); Neutrophils # 8.3 K/mm3 (1.8-7.8); Neutrophils % 73.9 % (37.0-80.0); Platelet Count 413 K/mm3 (142-424); Red Blood Count 3.79 M/mm3 (4.20-5.40); Red Cell Distribution Width 18.1 % (11.5-17.5); White Blood Count 11.2 K/mm3 (4.8-10.8)
--- NOTE | 2022-08-26 07:26 | EXP.DC.SUM ---
General Admission date:: 08/24/22 Discharge date: 08/26/22 HPI HPI HPI: Ms. Mckinley is a 82-year-old female with a past medical history of HFpEF, Atrial Fibrillation on chronic anticoagulation, history of TAVR, DM and Hypertension. She presents as a transfer from [facility] due to a 1-day history of Shortness of air associated with bilateral lower extremity swelling. She denies orthopnea or paroxysmal nocturnal dyspnea. In the ER at [facility] she was noted to be hypoxic on room air in the 80's. Cxray showed pulmonary vascular congestion and bilateral pleural effusions. BNP was elevated at 715. EKG showed atrial fibrillation with rate in the 80's. High sensitivy troponin was within normal limits at 23.5. ABG showed a pH of 7.440, there was concern that the sample was venous in that the pO2 was 39. In the ER at [facility] the patient was given 20 mg of Lasix iv and placed on oxygen at 2L with improvement in oxygen saturation to the 90's. The Attending ER Physician Dr. Guzman spoke with Account Development Manager Dr. Alanis who recommended transfer to the facility. The patient is admitted with initial impression: CHF exacerbation. Hospital Course Hospital Course Hospital Course: 82 year old female that presented to [facility] ED for c/o of SOA and bilateral lower leg swelling. PMHX of HFpEF, A fib, diabtetes, and HTN. In the [facility] ED she was hypoxic on room air. Her oxygen saturation was in the 80's. Her BNP was 715 and chest xray showed fluid overload. She was given 20mg of lasix and placed on 2L of oxygen.? She was transferred to the [facility] for further medical management. Increase diuresis. Patient responded well to IV Lasix. Has put out over 6 L during her hospitalization. Cardiology was consulted. Transition back to home regimen and increased dose of Lasix. Stable for discharge home with continued outpatient follow-up. Problems addressed as follows: ACUTE ON CHRONIC COMBINED SYSTOLIC AND DIASTOLIC HEART FAILURE CAD A FIB HTN HLD -Chest xray personally reviewed, demonstrates fluid overload and bilaterally pleural effusions.? Bilateral lower leg swelling.? BNP 8380 on arrival to [facility]. Diuresed well with -6.6 L during hospitalization. Creatinine bumped slightly from baseline of 1-1.2. Will need repeat labs in 1 week to monitor BMP and CBC. Troponins were negative with EKG not showing any ischemic changes. Cardiology was consulted during hospitalization. Recommended medical management. Patient will discharge home on metoprolol 12.5 mg twice daily, Xarelto 15 mg daily, aspirin 81 mg daily, Aldactone 25 mg daily, Lasix 40 mg daily, and Lipitor 40 mg daily. Follow-up with cardiology in the next 2 weeks. Follow-up with PCP in the next week. Patient stable for discharge home. DIABETES -A1c obtained on admission: 6. Sliding scale insulin ordered during admission however not required. We will hold on any medications at this time. Exam Data for Last 24 hours Vital signs and Labs for Last 24 Hours: Temp Pulse Resp BP Pulse Ox 98.1 F 84 18 125/81 92 L 08/26/22 04:00 08/26/22 04:00 08/26/22 04:00 08/26/22 04:00 08/26/22 04:00 Laboratory Results - last 24 hr 08/25/22 11:41: POC Glucose 122 H 08/25/22 16:31: POC Glucose 129 H 08/25/22 20:07: POC Glucose 134 H 08/26/22 05:54: POC Glucose 109 08/26/22 06:02: WBC 11.2 H D, RBC 3.79 L, Hgb 9.7 L, Hct 31.1 L, MCV 82.1, MCH 25.7 L, MCHC 31.3 L, RDW 18.1 H, Plt Count 413, MPV 7.9, Neut % (Auto) 73.9, Lymph % (Auto) 14.2, [place] % (Auto) 7.8, Eos % (Auto) 3.5, Baso % (Auto) 0.6, Neut # (Auto) 8.3 H, Lymph # (Auto) 1.6, [place] # (Auto) 0.9, Eos # (Auto) 0.4, Baso # (Auto) 0.1 08/26/22 06:02: Sodium 138, Potassium 4.2, Chloride 99, Carbon Dioxide 34 H, Anion Gap 9.2, BUN 34 H D, Creatinine 1.20 H, Estimated Creat Clear 52, Estimated GFR 43 L, Est GFR ( Amer) 52 L, Glucose 101 H, Calcium 8.4, Magnesium 1.9, Total
[2022-08-26 07:56] VITALS: BP 111/75; PULSE 99; RESP 18; TEMP 36.9; O2SAT 95
[2022-08-26 08:00] VITALS: PULSE 102
--- NOTE | 2022-08-26 08:50 | EXP.DC.SUM ---
General Admission date:: 08/24/22 Discharge date: 08/26/22 HPI HPI HPI: 82 year old female that presented to [facility] ED for c/o of SOA and bilateral lower leg swelling. PMHX of HFpEF, A fib, diabtetes, and HTN. In the [facility] ED she was hypoxic on room air. Her oxygen saturation was in the 80's. Her BNP was 715 and chest xray showed fluid overload. She was given 20mg of lasix and placed on 2L of oxygen.? She was transferred to the [facility] for further medical management.? Her care will be managed by the Hospitalist team. Cardiology is consulted and appreciate their recommendations. Upon arrival to the medical floor at [facility], she was placed on 3L 02 and given an additional 40mg of lasix. Her BNP was 8380.? Since admission she has put out over 4L of fluid. She has been sitting up in the chair and requires no oxygen. Bilaterally lower leg edema has improved and patient is stable to go home and continue her home medications. Hospital Course Hospital Course Hospital Course: 82 year old female that presented to [facility] ED for c/o of SOA and bilateral lower leg swelling. PMHX of HFpEF, A fib, diabetes, and HTN. In the [facility] ED she was hypoxic on room air. Her oxygen saturation was in the 80's. Her BNP was 715 and chest xray showed fluid overload. She was given 20mg of lasix and placed on 2L of oxygen.? She was transferred to the [facility] for further medical management. she was diuresised with Lasix. Cardiology restrted home medicatiom for acute on chronic heart failure, a fib, HTN, and HLD. This included Xarelto 15 mg daily, Metoprolol 12.5 mg daily, Aspirin 81mg daily, aldactone 25mg daily, and atorvastain 40 mg daily. Kidney function remained stable during hospital stay. She requires no oxygen and has been sitting at bedside table. She is in good spirits and excited to return home. Will require follow up with PCP and cardiology. Exam Data for Last 24 hours Vital signs and Labs for Last 24 Hours: Temp Pulse Resp BP Pulse Ox 98.4 F 99 H 18 111/75 95 08/26/22 07:56 08/26/22 07:56 08/26/22 07:56 08/26/22 07:56 08/26/22 07:56 Laboratory Results - last 24 hr 08/25/22 11:41: POC Glucose 122 H 08/25/22 16:31: POC Glucose 129 H 08/25/22 20:07: POC Glucose 134 H 08/26/22 05:54: POC Glucose 109 08/26/22 06:02: WBC 11.2 H D, RBC 3.79 L, Hgb 9.7 L, Hct 31.1 L, MCV 82.1, MCH 25.7 L, MCHC 31.3 L, RDW 18.1 H, Plt Count 413, MPV 7.9, Neut % (Auto) 73.9, Lymph % (Auto) 14.2, [place] % (Auto) 7.8, Eos % (Auto) 3.5, Baso % (Auto) 0.6, Neut # (Auto) 8.3 H, Lymph # (Auto) 1.6, [place] # (Auto) 0.9, Eos # (Auto) 0.4, Baso # (Auto) 0.1 08/26/22 06:02: Sodium 138, Potassium 4.2, Chloride 99, Carbon Dioxide 34 H, Anion Gap 9.2, BUN 34 H D, Creatinine 1.20 H, Estimated Creat Clear 52, Estimated GFR 43 L, Est GFR ( Amer) 52 L, Glucose 101 H, Calcium 8.4, Magnesium 1.9, Total Bilirubin 0.6, AST 39 H, ALT 24 D, Alkaline Phosphatase 102, Total Protein 5.8 L, Albumin 3.0 L, Globulin 2.8, Albumin/Globulin Ratio 1.1 I & O for Last 24 hours: Intake & Output 08/23/22 08/24/22 08/25/22 08/26/22 23:59 23:59 23:59 23:59 Intake Total 240 / 240 360 / 360 Output Total 1000 / 1000 5000 / 5600 900 / 900 Balance -1000 / -1000 -4760 / -5360 -540 / -540 Weight 97.25 kg 97.386 kg 92.079 kg Constitutional Constitutional: no acute distress and morbidly obese *Routine HEENT Exam Head: Present normocephalic Eye: Present EOMI ENT: Present mucous membranes moist *Routine Neck Exam Neck: Present full ROM *Routine Respiratory Exam Respiratory: Present crackles and normal respiratory effort; Absent accessory muscle use *Routine Cardiovascular Exam Cardiovascular: Present RRR, Normal S1 and Normal S2 *Routine Abdominal Exam Abdominal: Present soft and normoactive bowel sounds; Absent tenderness *Routine Rectal Exam Comments: deferred *Routine Exam Comments: deferred *Routine Extremities Exam Extremities: Present full ROM *Routine Skin Exa
--- NOTE | 2022-08-26 09:04 | EXP.CARD.PN ---
Subjective Subjective Date: 08/26/22 Time: 08:00 Principal diagnosis: Heart failure exacerbation Interval history: Patient doing well this morning, -2.8 L, morning labs reviewed. Patient reports she is feeling much better denies chest pain or shortness of breath. Lower extremity edema resolving. Anticipate discharge today Exam Data for Last 24 hours Vital signs and Labs for Last 24 Hours: Temp Pulse Resp BP Pulse Ox 98.4 F 99 H 18 111/75 95 08/26/22 07:56 08/26/22 07:56 08/26/22 07:56 08/26/22 07:56 08/26/22 07:56 Laboratory Results - last 24 hr 08/25/22 11:41: POC Glucose 122 H 08/25/22 16:31: POC Glucose 129 H 08/25/22 20:07: POC Glucose 134 H 08/26/22 05:54: POC Glucose 109 08/26/22 06:02: WBC 11.2 H D, RBC 3.79 L, Hgb 9.7 L, Hct 31.1 L, MCV 82.1, MCH 25.7 L, MCHC 31.3 L, RDW 18.1 H, Plt Count 413, MPV 7.9, Neut % (Auto) 73.9, Lymph % (Auto) 14.2, [place] % (Auto) 7.8, Eos % (Auto) 3.5, Baso % (Auto) 0.6, Neut # (Auto) 8.3 H, Lymph # (Auto) 1.6, [place] # (Auto) 0.9, Eos # (Auto) 0.4, Baso # (Auto) 0.1 08/26/22 06:02: Sodium 138, Potassium 4.2, Chloride 99, Carbon Dioxide 34 H, Anion Gap 9.2, BUN 34 H D, Creatinine 1.20 H, Estimated Creat Clear 52, Estimated GFR 43 L, Est GFR ( Amer) 52 L, Glucose 101 H, Calcium 8.4, Magnesium 1.9, Total Bilirubin 0.6, AST 39 H, ALT 24 D, Alkaline Phosphatase 102, Total Protein 5.8 L, Albumin 3.0 L, Globulin 2.8, Albumin/Globulin Ratio 1.1 I & O for Last 24 hours: Intake & Output 08/23/22 08/24/22 08/25/22 08/26/22 23:59 23:59 23:59 23:59 Intake Total 240 / 240 360 / 360 Output Total 1000 / 1000 5000 / 5600 900 / 900 Balance -1000 / -1000 -4760 / -5360 -540 / -540 Weight 214 lb 6.4 oz 214 lb 11.2 oz 203 lb Constitutional Constitutional: no acute distress *Routine Respiratory Exam Respiratory: Present CTA bilaterally and symmetric chest movement *Routine Cardiovascular Exam Cardiovascular: Present Normal S1, Normal S2, irregular rhythm and irregularly irregular Comments: Chronic A-fib *Routine Abdominal Exam Abdominal: Present soft and normoactive bowel sounds; Absent tenderness *Routine Extremities Exam Extremities: Present full ROM and normal capillary refill; Absent edema *Routine Skin Exam Skin: Present intact, dry and warm Detailed Neck Exam: Thyroids Thyroid: Absent bruit Progress Note: A&P Assessment and plan (1) Hypertension: Status: Acute (2) S/P TAVR (transcatheter aortic valve replacement): Status: Acute (3) Atrial fibrillation: Status: Acute (4) CAD (coronary artery disease): Status: Chronic (5) Heart failure with preserved ejection fraction: Status: Acute (6) Hyperlipidemia: Status: Chronic (7) Diabetes mellitus: Status: Acute Assessment and Plan Assessment and Plan for All Diagnoses:: Acute on Chronic HFpEF NYHA III-IV S/p TAVR -Echo 07/2022- EF 50-60%, left atrium is severely dilated, there is a secundum ASD with [id number] flow by Doppler, bioprosthetic valve is well-seated,? no regional wall motion noted. -Continue Lasix 40mg IV twice daily, metoprolol 12.5 mg p.o. twice daily, Aldactone 25 mg p.o. daily.? Consider addition of Jardiance prior to discharge if kidney function remains stable. 08/26/2022: Symptoms resolving. Denies chest pain or shortness of breath. Lower extremity edema resolving. -2.8 L A-fib Александр Vasc score 7 -Continue Xarelto 15 mg p.o. daily -Continue metoprolol 12.5 mg p.o. twice daily Coronary artery disease CCS 2 -Serial troponins negative -No acute EKG changes noted -VIVIANA to LAD and RCA 06/15 -Continue aspirin 81 mg p.o. daily, atorvastatin 40 mg p.o. daily, metoprolol 12.5 mg p.o. twice daily Hypertension -Well-controlled today.? Continue Lasix 40 mg twice daily, metoprolol 12.5 mg p.o. twice daily and Aldactone 25 mg p.o. daily Hyperlipidemia -Continue atorvastatin 40 mg p.o. daily Diabetes mellitus -Defer to primary service -Consider additio
--- NOTE | 2022-08-26 10:02 | SW/DCPLANNER ---
Addendum entered by Aliya Whitaker 08/29/22 08:57: Patient is currently established with [facility]: patient information has been faxed. Addendum entered by Aliya Whitaker 08/26/22 12:28: Molly fuller/ [facility] stated that services will begin Monday08/29/22 for this patient. Addendum entered by Aliya [place] 08/26/22 10:42: [facility] is not able to accept patient's insurance. Patient information/order has been faxed to [facility]. Original Note: PT/OT evaluated patient and recommended home with home health. Patient is agreeable to discharge home with home health services. Patient information/order will be faxed to [facility]. Patient will discharge home today.
--- NOTE | 2022-08-26 10:31 | PC.NURSE ---
Patient's next of kin Suri contacted to arrange ride home. Per Suri, ride will be here around 3:00 to 4:00 pm
[2022-08-26 11:20] LABS: POC Glucose,Bedside 101 (70-110)
[2022-08-26 11:40] VITALS: BP 149/70; PULSE 84; RESP 18; TEMP 36.8; O2SAT 95
[2022-08-26 12:00] VITALS: PULSE 90
--- NOTE | 2022-08-29 15:20 | CARE MANAGER ---
Spoke with patient daughter for post-discharge phone interview, no issues noted.
== END 2022-08-26 16:21 | disposition home or self-care (01) ==
PROVIDERS: Nurse Practitioner Family; Admitting Provider Internal Medicine Adolescent Medicine; PCP Family Medicine; Visit Provider Internal Medicine Adolescent Medicine
DX: I48.91 Unspecified atrial fibrillation; E11.9 Type 2 diabetes mellitus without complications; Z95.2 Presence of prosthetic heart valve; I11.0 Hypertensive heart disease with heart failure; I50.43 Acute on chronic combined systolic (congestive) and diastolic (congestive) heart failure; I25.118 Atherosclerotic heart disease of native coronary artery with other forms of angina pectoris; E78.2 Mixed hyperlipidemia; Z79.01 Long term (current) use of anticoagulants; Z79.899 Other long term (current) drug therapy; Z87.891 Personal history of nicotine dependence
CPT/HCPCS: G0378; G0379; 36415; 71045; 80053; 82962; 83735; 83880; 84484; 85007; 85025; 87636; 93005; 97110; 97116; 97162; 99251; C9803; U0003; U0005

== ENCOUNTER → 2022-09-08 12:21 | Outpatient (CLI) | payer MEDICARE, MEDICAID, SELFPAY ==
[2022-09-08 14:06] LABS: Basophils % 0.4 % (0.1-2.0); Eosinophils # 0.4 K/mm3 (0.0-0.4); Hematocrit 32.6 % (37.0-47.0); Hemoglobin 10.1 g/dL (12.2-16.2); Mean Corpuscular HGB Conc 30.9 g/dL (31.8-35.4); Mean Corpuscular Hemoglobin 25.6 pg (27.0-31.2); Mean Corpuscular Volume 82.7 fl (81-99); Mean Platelet Volume 8.3 fl (7.4-10.4); Monocytes # 0.8 K/mm3 (0.1-1.0); Monocytes % 7.8 % (1.7-9.3); Neutrophils # 7.2 K/mm3 (1.8-7.8); Neutrophils % 68.8 % (37.0-80.0); Platelet Count 302 K/mm3 (142-424); Red Blood Count 3.94 M/mm3 (4.20-5.40); Red Cell Distribution Width 17.4 % (11.5-17.5); White Blood Count 10.5 K/mm3 (4.8-10.8)
[2022-09-08 14:52] LABS: Chloride 94 mmol/L (98-107); Potassium 4.8 mmoL/L (3.5-5.1); Sodium 132 mmol/L (136-145)
[2022-09-08 14:55] LABS: Anion Gap 12.8 mEq/L (5-15); Blood Urea Nitrogen 22 mg/dl (7-17); Calcium 8.4 mg/dl (8.4-10.2); Carbon Dioxide 30 mmol/L (22.0-30.0); Estimated Glomerular Filt Rate 43 ml/min (>60); GFR (African American) 52 ML/MIN (>60); Glucose 64 mg/dl (74-100)
== END ==
PROVIDERS: PCP Family Medicine; Visit Provider Physician Assistant
DX: E11.9 Type 2 diabetes mellitus without complications (principal); E78.2 Mixed hyperlipidemia; I10 Essential (primary) hypertension; I35.0 Nonrheumatic aortic (valve) stenosis; I48.91 Unspecified atrial fibrillation; I50.43 Acute on chronic combined systolic (congestive) and diastolic (congestive) heart failure; Q21.10 Atrial septal defect, unspecified; I63.9 Cerebral infarction, unspecified
CPT/HCPCS: 36415; 80048; 83735; 85025

== ENCOUNTER 2022-10-24 09:04 | Observation (INO) | payer MEDICARE, MEDICAID, SELFPAY ==
[2022-10-24] VITALS (7 sets, daily range): BP systolic 111–139; BP diastolic 54–84; PULSE 60–90; RESP 19–22; TEMP 36.6–37.5; O2SAT 92–100; BMI 37.2
--- NOTE | 2022-10-24 07:42 | ECG_ITS ---
APPROVED REPORT Exam: Resting ECG HR:85 bpm ECG Measurements Heart Rate 85 AXES QRSd 101 QRS 80 QT 409 T -24 QTc 451 Conclusion ATRIAL FIBRILLATION WITH ABERRANT CONDUCTION OR VENTRICULAR PREMATURE COMPLEXES ST DEVIATION AND MODERATE T-WAVE ABNORMALITY, CONSIDER LATERAL ISCHEMIA [-0.1+ mV T-WAVE IN I/aVL/V5/V6] ABNORMAL ECG UNCONFIRMED REPORT Electronically signed by : Madi Hernandez MD 10/24/2022 19:49:30
--- NOTE | 2022-10-24 09:10 | PC.NURSE ---
arrived by alix from
[2022-10-24 10:03] LABS: Basophils # 0.1 K/mm3 (0-0.2); Basophils % 0.3 % (0.1-2.0); Eosinophils # 0.1 K/mm3 (0.0-0.4); Eosinophils % 0.6 % (0.1-12.0); Hematocrit 33.5 % (37.0-47.0); Hemoglobin 10.6 g/dL (12.2-16.2); Lymphocytes # 1.8 K/mm3 (0.7-4.5); Lymphocytes % 9.9 % (10-50); Mean Corpuscular HGB Conc 31.6 g/dL (31.8-35.4); Mean Corpuscular Hemoglobin 24.5 pg (27.0-31.2); Mean Corpuscular Volume 77.5 fl (81-99); Mean Platelet Volume 8.4 fl (7.4-10.4); Monocytes # 1.5 K/mm3 (0.1-1.0); Monocytes % 8.3 % (1.7-9.3); Neutrophils # 14.9 K/mm3 (1.8-7.8); Neutrophils % 80.9 % (37.0-80.0); Platelet Count 315 K/mm3 (142-424); Red Blood Count 4.32 M/mm3 (4.20-5.40); Red Cell Distribution Width 18.1 % (11.5-17.5); White Blood Count 18.4 K/mm3 (4.8-10.8)
[2022-10-24 10:11] LABS: Chloride 76 mmol/L (98-107)
[2022-10-24 10:12] LABS: Sodium 130 mmol/L (136-145)
[2022-10-24 10:14] LABS: Alanine Aminotransferase 37 U/L (12-78); Alkaline Phosphatase 142 U/L (38-126); Aspartate Amino Transferase 58 U/L (14-36); Bilirubin,Total 1.4 mg/dl (0.2-1.3); Blood Urea Nitrogen 42 mg/dl (7-17); Cholesterol 156 mg/dl (140-200); Creatinine Clearance Estimated 40 mL/min (50-200); Estimated Glomerular Filt Rate 31 ml/min (>60); GFR (African American) 37 ML/MIN (>60); Triglycerides 109 mg/dl (30-150); VLDL Cholesterol 22 mg/dL (0-40)
[2022-10-24 10:15] LABS: Albumin Level 3.3 g/dl (3.5-5.0); Albumin/Globulin Ratio 1.2 (1.1-1.8); Calcium 8.6 mg/dl (8.4-10.2); Chol/HDL Ratio 3.8 (1-3.5); Globulin 2.8 g/dL (1.3-3.2); Glucose 133 mg/dl (74-100); HDL Cholesterol 41 mg/dl (40-60); MANUAL DIFFERENTIAL MANUAL DIFFERENTIAL (MANUAL DIFF); Magnesium 1.9 mg/dl (1.6-2.3); Total Protein,Serum 6.1 g/dl (6.3-8.2)
[2022-10-24 10:24] LABS: Anion Gap 7.6 mEq/L (5-15); Carbon Dioxide 49 mmol/L (22.0-30.0)
[2022-10-24 10:25] LABS: Potassium 2.6 mmoL/L (3.5-5.1)
--- NOTE | 2022-10-24 10:29 | PC.NURSE ---
Notified Dr. Lackey of critical K+ of 2.6
--- NOTE | 2022-10-24 10:46 | PC.NURSE ---
Dr. Lackey notified of critical trop of 0.23
--- NOTE | 2022-10-24 10:46 | HMH.PHAINT1 ---
Pharmacy Intervention Comments: Patient's home medications were verified using list from [facility], external history resource, and cardiology note from 10/08/22. -Jaspal Lewis, PharmD student
[2022-10-24 10:48] LABS: Troponin I 0.23 ng/ml (0.00-0.034)
--- NOTE | 2022-10-24 11:18 | EXP.CARD.CON ---
History of Present Illness History of Present Illness Consult date: 10/24/22 Requesting physician: Dennis Lackey Chief complaint: ARSLAN, dehydration, elevated troponin History of present illness: 82 year old white female with a past medical history of CAD with stenting, HFpEF, Atrial Fibrillation on chronic anticoagulation, history of TAVR, DM and hypertension who was transferred from [facility] for cardiology evaluation secondary to elevated troponin in the setting of ARSLAN/dehydration. EKG upon presentation to [facility] shows A-fib with a rate of 85 with PVCs, no acute ischemic changes noted. Labs as follow: WBC 18.4, hemoglobin 10.6, creatinine 1.6, BUN 42, troponin 0.23. Patient denies complaints currently. [facility] Disclaimer: The information contained in this section may have been updated after the patient was seen, as this information can be updated by other users. Medical History Atrial fibrillation Bilateral carotid bruits CAD (coronary artery disease) Carotid artery stenosis CHF exacerbation Congestive heart failure Coronary artery disease Dementia Diabetes mellitus, type 2 Dyspnea Edema History of gastroesophageal reflux (GERD) History of heart attack Hypokalemia Hypomagnesemia Moderate mitral regurgitation Pneumonia Syncope Surgical History History of hysterectomy S/P TAVR (transcatheter aortic valve replacement) Stented coronary artery Family History No significant family history Social History Smoking Status: Former smoker alcohol intake: never current occupational status: retired Travel in the last 8 weeks: Inside the [place] household members: none housing: house Review of Systems Review of Systems Review of systems:: pertinent systems reviewed and negative unless documented below Exam Data for Last 24 hours Vital signs and Labs for Last 24 Hours: Temp Pulse Resp BP Pulse Ox O2 Del Method O2 Flow Rate 99.5 F 90 22 122/82 98 Nasal Cannula 3 10/24/22 09:47 10/24/22 09:47 10/24/22 09:47 10/24/22 09:47 10/24/22 10:19 10/24/22 10:19 10/24/22 10:19 Laboratory Results - last 24 hr 10/24/22 09:50: WBC 18.4 H, RBC 4.32, Hgb 10.6 L, Hct 33.5 L, MCV 77.5 L, MCH 24.5 L, MCHC 31.6 L, RDW 18.1 H, Plt Count 315, MPV 8.4, Neut % (Auto) 80.9 H, Lymph % (Auto) 9.9 L, [place] % (Auto) 8.3, Eos % (Auto) 0.6, Baso % (Auto) 0.3, Neut # (Auto) 14.9 H, Lymph # (Auto) 1.8, [place] # (Auto) 1.5 H, Eos # (Auto) 0.1, Baso # (Auto) 0.1, Sodium 130 L, Potassium 2.6 L*, Chloride 76 L, Carbon Dioxide 49 H*, Anion Gap 7.6, BUN 42 H, Creatinine 1.60 H, Estimated Creat Clear 40, Estimated GFR 31 L, Est GFR ( Amer) 37 L, Glucose 133 H, Calcium 8.6, Magnesium 1.9, Total Bilirubin 1.4 H, AST 58 H, ALT 37, Alkaline Phosphatase 142 H, Troponin I 0.23 H, Total Protein 6.1 L, Albumin 3.3 L, Globulin 2.8, Albumin/Globulin Ratio 1.2, Triglycerides 109, Cholesterol 156, LDL Cholesterol Direct 83.30 L, VLDL Cholesterol 22, HDL Cholesterol 41, Cholesterol/HDL Ratio 3.8 H I & O for Last 24 hours: Intake & Output 10/21/22 10/22/22 10/23/22 10/24/22 23:59 23:59 23:59 23:59 Weight 210 lb 5 oz Constitutional Constitutional: no acute distress *Routine Respiratory Exam Respiratory: Present CTA bilaterally and symmetric chest movement *Routine Cardiovascular Exam Cardiovascular: Present RRR Comments: afib *Routine Abdominal Exam Abdominal: Present soft and normoactive bowel sounds; Absent tenderness *Routine Extremities Exam Extremities: Present full ROM and normal capillary refill; Absent edema *Routine Skin Exam Skin: Present intact, dry and warm Detailed Neck Exam: Thyroids Thyroid: Absent bruit Meds Home Medications and Allergies Home Medications Medication Instructions Recorded Con
[2022-10-24 11:19] LABS: Lymphocytes % 11 % (10-50); Monocytes % 5 % (2-9); Neutrophils % 84 % (42-76); Platelet Estimate Normal; Total Cells Counted 100
[2022-10-24 11:20] LABS: Hypochromasia 1+
--- NOTE | 2022-10-24 11:55 | US_ITS ---
FINAL REPORT CLINICAL HISTORY: abdominal pain, elevated bili COMPARISON: None FINDINGS: Sonographic images of the right upper quadrant were obtained. The pancreas is obscured. The liver is fatty infiltrated. The gallbladder is surgically absent. There is no evidence of biliary ductal dilatation.The common duct measures 2 mm. Limited images of the right kidney are unremarkable. IMPRESSION: Fatty liver. Reviewed, Interpreted and Dictated by Cuong Jewell III, MD Transcribed by Oma Jesus Authenticated and [facility]
--- NOTE | 2022-10-24 13:51 | EXP.HP ---
History of Present Illness *Admission Date: 10/24/22 *Reason for visit:: weakness, nausea *History of present illness: Ms. Rich is a 82-year-old female with history of dementia, CAD status post stenting, heart failure with preserved ejection fraction, A-fib on chronic anticoagulation, history of TAVR, diabetes, and hypertension. She originally presented to [facility] secondary to nausea and weakness. Her son provided history at [place], he is unavailable to provide history here with us. She was found to have lab abnormalities including a slight elevation of troponin, ARSLAN, hypokalemia, and elevated white cell count. They requested transfer for further evaluation and cardiology consult. Agreed to accept patient and initiate further work-up. On arrival to [facility], repeat lab series was performed showing an increase in leukocytosis from 14,000 (reported to [facility]) to 18. Creatinine marginally improved from 2-1.6. Potassium still low at 2.6. Troponin 0.23. EKG obtained on arrival shows A-fib with rate control of 85. No ischemic changes. Consulted cardiology for further assistance. Received a liter of fluids in transit from [facility]. Reportedly head CT, chest x-ray, UA obtained that were all unremarkable with no acute findings. On initial evaluation patient complains of diffuse abdominal pain. States she does not think she has had a bowel movement in 3 to 4 days. Denies any nausea, vomiting, chest pain, shortness of breath. Is on baseline oxygen at 3 L. Of note, she lives alone and her son checks on her. [facility] Disclaimer: The information contained in this section may have been updated after the patient was seen, as this information can be updated by other users. Medical History Atrial fibrillation Bilateral carotid bruits CAD (coronary artery disease) Carotid artery stenosis CHF exacerbation Congestive heart failure Coronary artery disease Dementia Diabetes mellitus, type 2 Dyspnea Edema History of gastroesophageal reflux (GERD) History of heart attack Hypokalemia Hypomagnesemia Moderate mitral regurgitation Pneumonia Syncope Surgical History History of hysterectomy S/P TAVR (transcatheter aortic valve replacement) Stented coronary artery Family History No significant family history Social History Smoking Status: Former smoker alcohol intake: never current occupational status: retired Travel in the last 8 weeks: [place] the [place] household members: none housing: house Meds Home Medications and Allergies Home Medications Medication Instructions Recorded Confirmed Type pantoprazole 40 mg tablet,delayed 40 mg PO DAILY Acid reflux 06/30/21 10/24/22 History release atorvastatin 40 mg tablet 40 mg PO HS Cholesterol #90 tabs 06/06/22 10/24/22 Rx rivaroxaban 15 mg tablet 15 mg PO QPMWITHMEAL Blood 08/24/22 10/24/22 History thinner/AFIB magnesium oxide 400 mg PO DAILY Supplement #30 tabs 09/12/22 10/24/22 Rx furosemide 20 mg tablet 20 mg PO DAILY Fluid 10/24/22 10/24/22 History metoprolol tartrate 50 mg tablet 50 mg PO DAILY High Blood Pressure 10/24/22 10/24/22 History nystatin 100,000 unit/gram topical 1 applic topical BID antifungal 10/24/22 10/24/22 History powder (Nystop) spironolactone 25 mg tablet 25 mg PO DAILY Fluid 10/24/22 10/24/22 History New Prescriptions to Start Prescriptions: Allergies Allergy/AdvReac Type Severity Reaction Status Date / Time No Known Allergies Allergy Verified 10/24/22 10:08 Exam Data for Last 24 hours Vital signs and Labs for Last 24 Hours: Temp Pulse Resp BP Pulse Ox O2 Del Method O2 Flow Rate 98.2 F 81 20 136/84 92 L Nasal Cannula 3
[2022-10-24 14:08] LABS: Lipase 214 U/L (23-300)
--- NOTE | 2022-10-24 14:14 | XR_ITS ---
FINAL REPORT CLINICAL HISTORY: increased O2 demand COMPARISON: 08/24/2022 FINDINGS: A single portable view of the chest was obtained. Cardiomegaly. Pulmonary vascularity is within normal limits. The mediastinum is within normal limits. There is improved aeration in the lungs compared to prior. Persistent mild right base opacities are favored to represent atelectasis. The bony thorax is intact. IMPRESSION: Improved aeration in the lungs with persistent mild right base opacities. Reviewed, Interpreted and Dictated by Cuong Jewell III, MD Transcribed by Oma Jesus Authenticated and [facility]
[2022-10-24 15:52] LABS: Troponin I 0.34 ng/ml (0.00-0.034)
--- NOTE | 2022-10-24 15:52 | PC.NURSE ---
Dr. Lackey notified of critical trop of 0.34
--- NOTE | 2022-10-24 16:10 | PC.NURSE ---
courtesy tech note: pt sleeping in bed, call light within reach, bed alarm set.
[2022-10-24 16:41] LABS: Microscopic, Urine URINE MICROSCOPIC (MICROSCOPIC)
[2022-10-24 16:55] LABS: Appearance,Urine CLEAR (Clear); Bilirubin,Urine Negative (Negative); Blood, Urine Negative (Negative); Color,Urine YELLOW (Yellow); Glucose,Urine (UA) Negative (Negative); Ketones,Urine Negative (Negative); Leukocyte Esterase,Urine Negative (Negative); Nitrate,Urine Negative (Negative); Protein,Urine Negative (Negative); Specific Gravity, Urine <= 1.005 (1.005-1.030)
[2022-10-24 17:45] LABS: Hemoglobin A1C 6.3 % (4.0-6.0)
[2022-10-24 18:10] LABS: Troponin I 0.31 ng/ml (0.00-0.034)
--- NOTE | 2022-10-24 18:11 | PC.WOUNDNOTE ---
Dr. Lackey notified of critical trop of 0.31
[2022-10-24 19:15] LABS: Chloride 78 mmol/L (98-107); Potassium 3.1 mmoL/L (3.5-5.1); Sodium 132 mmol/L (136-145)
[2022-10-24 19:18] LABS: Blood Urea Nitrogen 40 mg/dl (7-17); Calcium 8.4 mg/dl (8.4-10.2); Creatinine Clearance Estimated 40 mL/min (50-200); Estimated Glomerular Filt Rate 31 ml/min (>60); GFR (African American) 37 ML/MIN (>60); Glucose 128 mg/dl (74-100)
[2022-10-24 19:27] LABS: Anion Gap 7.1 mEq/L (5-15)
[2022-10-24 19:31] LABS: Carbon Dioxide 50 mmol/L (22.0-30.0)
[2022-10-25 04:00] VITALS: BP 145/73; PULSE 85; PULSE 86; RESP 18; TEMP 36.9; O2SAT 97; BMI 37.4
--- NOTE | 2022-10-25 04:38 | PC.NURSE ---
Patient has rested most of the night. No issues were stated by patient. IV was saline locked.
[2022-10-25 06:35] LABS: Basophils # 0.1 K/mm3 (0-0.2); Basophils % 0.3 % (0.1-2.0); Eosinophils # 0.5 K/mm3 (0.0-0.4); Eosinophils % 2.8 % (0.1-12.0); Hematocrit 33.7 % (37.0-47.0); Hemoglobin 10.4 g/dL (12.2-16.2); Lymphocytes # 1.4 K/mm3 (0.7-4.5); Lymphocytes % 8.1 % (10-50); Mean Corpuscular HGB Conc 30.8 g/dL (31.8-35.4); Mean Corpuscular Hemoglobin 24.5 pg (27.0-31.2); Mean Corpuscular Volume 79.3 fl (81-99); Mean Platelet Volume 8.3 fl (7.4-10.4); Monocytes % 5.6 % (1.7-9.3); Neutrophils # 14.7 K/mm3 (1.8-7.8); Neutrophils % 83.2 % (37.0-80.0); Platelet Count 287 K/mm3 (142-424); Red Blood Count 4.24 M/mm3 (4.20-5.40); Red Cell Distribution Width 18.4 % (11.5-17.5); White Blood Count 17.7 K/mm3 (4.8-10.8)
[2022-10-25 06:40] LABS: MANUAL DIFFERENTIAL MANUAL DIFFERENTIAL (MANUAL DIFF)
[2022-10-25 06:43] LABS: Chloride 83 mmol/L (98-107)
[2022-10-25 06:44] LABS: Sodium 132 mmol/L (136-145)
[2022-10-25 06:46] LABS: Alanine Aminotransferase 31 U/L (12-78); Aspartate Amino Transferase 67 U/L (14-36); Blood Urea Nitrogen 38 mg/dl (7-17); Creatinine Clearance Estimated 50 mL/min (50-200); Estimated Glomerular Filt Rate 39 ml/min (>60); GFR (African American) 47 ML/MIN (>60)
[2022-10-25 06:47] LABS: Albumin Level 3.2 g/dl (3.5-5.0); Albumin/Globulin Ratio 1.1 (1.1-1.8); Alkaline Phosphatase 120 U/L (38-126); Bilirubin,Total 1.3 mg/dl (0.2-1.3); Calcium 8.8 mg/dl (8.4-10.2); Globulin 2.9 g/dL (1.3-3.2); Glucose 109 mg/dl (74-100); Magnesium 2.2 mg/dl (1.6-2.3); Total Protein,Serum 6.1 g/dl (6.3-8.2)
[2022-10-25 06:57] LABS: Carbon Dioxide 45 mmol/L (22.0-30.0)
[2022-10-25 07:20] LABS: Hypochromasia 2+; Lymphocytes % 7 % (10-50); Microcytosis 1+; Monocytes % 4 % (2-9); Neutrophils % 89 % (42-76); Platelet Estimate Normal; Total Cells Counted 100
[2022-10-25 08:00] VITALS: BP 136/61; PULSE 108; PULSE 110; RESP 20; TEMP 36.9; O2SAT 95
--- NOTE | 2022-10-25 08:11 | EXP.PN ---
Subjective *Date: 10/25/22 *Time: 18:28 Interval history: No acute events overnight. Exam Data for Last 24 hours Vital signs and Labs for Last 24 Hours: Temp Pulse Resp BP Pulse Ox O2 Del Method O2 Flow Rate 98.4 F 86 18 145/73 H 97 Nasal Cannula 3 10/25/22 04:00 10/25/22 04:00 10/25/22 04:00 10/25/22 04:00 10/25/22 04:00 10/25/22 06:53 10/25/22 06:53 Laboratory Results - last 24 hr 10/24/22 09:50: WBC 18.4 H, RBC 4.32, Hgb 10.6 L, Hct 33.5 L, MCV 77.5 L, MCH 24.5 L, MCHC 31.6 L, RDW 18.1 H, Plt Count 315, MPV 8.4, Neut % (Auto) 80.9 H, Lymph % (Auto) 9.9 L, [place] % (Auto) 8.3, Eos % (Auto) 0.6, Baso % (Auto) 0.3, Neut # (Auto) 14.9 H, Lymph # (Auto) 1.8, [place] # (Auto) 1.5 H, Eos # (Auto) 0.1, Baso # (Auto) 0.1, Total Counted 100, Neutrophils % (Manual) 84 H, Lymphocytes % (Manual) 11, Monocytes % (Manual) 5, Platelet Estimate Normal, Hypochromasia 1+, Sodium 130 L, Potassium 2.6 L*, Chloride 76 L, Carbon Dioxide 49 H*, Anion Gap 7.6, BUN 42 H, Creatinine 1.60 H, Estimated Creat Clear 40, Estimated GFR 31 L, Est GFR ( Amer) 37 L, Glucose 133 H, Calcium 8.6, Magnesium 1.9, Total Bilirubin 1.4 H, AST 58 H, ALT 37, Alkaline Phosphatase 142 H, Troponin I 0.23 H, Total Protein 6.1 L, Albumin 3.3 L, Globulin 2.8, Albumin/Globulin Ratio 1.2, Triglycerides 109, Cholesterol 156, LDL Cholesterol Direct 83.30 L, VLDL Cholesterol 22, HDL Cholesterol 41, Cholesterol/HDL Ratio 3.8 H 10/24/22 14:40: Troponin I 0.34 H 10/24/22 16:31: Urine Color Yellow, Urine Appearance Clear, Urine pH 7.0, Ur Specific [place] <= 1.005, Urine Protein Negative, Urine Glucose (UA) Negative, Urine Ketones Negative, Urine Blood Negative, Urine Nitrate Negative, Urine Bilirubin Negative, Urine Urobilinogen 4.0, Ur Leukocyte Esterase Negative, Urine RBC None, Urine WBC None, Ur Squamous Epith Cells None, Urine Bacteria None 10/24/22 17:20: Sodium 132 L, Potassium 3.1 L, Chloride 78 L, Carbon Dioxide 50 H*, Anion Gap 7.1, BUN 40 H, Creatinine 1.60 H, Estimated Creat Clear 40, Estimated GFR 31 L, Est GFR ( Amer) 37 L, Glucose 128 H, Calcium 8.4 10/24/22 17:25: Troponin I 0.31 H 10/24/22 : Hemoglobin A1c 6.3 H, Lipase 214 10/25/22 06:17: WBC 17.7 H, RBC 4.24, Hgb 10.4 L, Hct 33.7 L, MCV 79.3 L, MCH 24.5 L, MCHC 30.8 L, RDW 18.4 H, Plt Count 287, MPV 8.3, Neut % (Auto) 83.2 H, Lymph % (Auto) 8.1 L, [place] % (Auto) 5.6, Eos % (Auto) 2.8, Baso % (Auto) 0.3, Neut # (Auto) 14.7 H, Lymph # (Auto) 1.4, [place] # (Auto) 1.0, Eos # (Auto) 0.5 H, Baso # (Auto) 0.1, Total Counted 100, Neutrophils % (Manual) 89 H, Lymphocytes % (Manual) 7 L, Monocytes % (Manual) 4, Platelet Estimate Normal, Hypochromasia 2+, Microcytosis 1+, Sodium 132 L, Potassium 4.0 D, Chloride 83 L, Carbon Dioxide 45 H*, Anion Gap 8.0, BUN 38 H, Creatinine 1.30 H, Estimated Creat Clear 50, Estimated GFR 39 L, Est GFR ( Amer) 47 L D, Glucose 109 H, Calcium 8.8, Magnesium 2.2 D, Total Bilirubin 1.3, AST 67 H, ALT 31, Alkaline Phosphatase 120, Total Protein 6.1 L, Albumin 3.2 L, Globulin 2.9, Albumin/Globulin Ratio 1.1 I & O for Last 24 hours: Intake & Output 10/22/22 10/23/22 10/24/22 10/25/22 23:59 23:59 23:59 23:59 Output Total 200 / 200 200 / 200 Balance -200 / -200 -200 / -200 Weight 95.396 kg 95.799 kg Constitutional Constitutional: no acute distress *Routine HEENT Exam Head: Present normocephalic Eye: Present EOMI and PERRL ENT: Present mucous membranes moist *Routine Neck Exam Neck: Present supple; Absent lymphadenopathy *Routine Respiratory Exam Respiratory: Present CTA bilaterally *Routine Cardiovascular Exam Cardiovascular: Present RRR *Routine Abdominal Exam Abdominal: Present soft and normoactive bowel sounds; Absent tenderness *Routine Extremities Exam Extremities: Absent cyanosis, clubbing or edema *Routine Skin Exam Skin: Present warm; Absent rash *Routine Neurological Exam Neurological: Present alert and oriented X3 Assessment and Plan *Assessment and plan
--- NOTE | 2022-10-25 09:11 | EXP.CARD.PN ---
Subjective Subjective Date: 10/25/22 Time: 08:00 Principal diagnosis: ARSLAN, hyperkalemia, acute myocardial injury Interval history: Doing well this morning. Denies chest pain or shortness of breath. No lower extremity edema noted. Morning labs reviewed Exam Data for Last 24 hours Vital signs and Labs for Last 24 Hours: Temp Pulse Resp BP Pulse Ox O2 Del Method O2 Flow Rate 98.5 F 108 H 20 136/61 95 Nasal Cannula 3 10/25/22 08:00 10/25/22 08:00 10/25/22 08:00 10/25/22 08:00 10/25/22 08:00 10/25/22 08:00 10/25/22 08:00 Laboratory Results - last 24 hr 10/24/22 09:50: WBC 18.4 H, RBC 4.32, Hgb 10.6 L, Hct 33.5 L, MCV 77.5 L, MCH 24.5 L, MCHC 31.6 L, RDW 18.1 H, Plt Count 315, MPV 8.4, Neut % (Auto) 80.9 H, Lymph % (Auto) 9.9 L, [place] % (Auto) 8.3, Eos % (Auto) 0.6, Baso % (Auto) 0.3, Neut # (Auto) 14.9 H, Lymph # (Auto) 1.8, [place] # (Auto) 1.5 H, Eos # (Auto) 0.1, Baso # (Auto) 0.1, Total Counted 100, Neutrophils % (Manual) 84 H, Lymphocytes % (Manual) 11, Monocytes % (Manual) 5, Platelet Estimate Normal, Hypochromasia 1+, Sodium 130 L, Potassium 2.6 L*, Chloride 76 L, Carbon Dioxide 49 H*, Anion Gap 7.6, BUN 42 H, Creatinine 1.60 H, Estimated Creat Clear 40, Estimated GFR 31 L, Est GFR ( Amer) 37 L, Glucose 133 H, Calcium 8.6, Magnesium 1.9, Total Bilirubin 1.4 H, AST 58 H, ALT 37, Alkaline Phosphatase 142 H, Troponin I 0.23 H, Total Protein 6.1 L, Albumin 3.3 L, Globulin 2.8, Albumin/Globulin Ratio 1.2, Triglycerides 109, Cholesterol 156, LDL Cholesterol Direct 83.30 L, VLDL Cholesterol 22, HDL Cholesterol 41, Cholesterol/HDL Ratio 3.8 H 10/24/22 14:40: Troponin I 0.34 H 10/24/22 16:31: Urine Color Yellow, Urine Appearance Clear, Urine pH 7.0, Ur Specific [place] <= 1.005, Urine Protein Negative, Urine Glucose (UA) Negative, Urine Ketones Negative, Urine Blood Negative, Urine Nitrate Negative, Urine Bilirubin Negative, Urine Urobilinogen 4.0, Ur Leukocyte Esterase Negative, Urine RBC None, Urine WBC None, Ur Squamous Epith Cells None, Urine Bacteria None 10/24/22 17:20: Sodium 132 L, Potassium 3.1 L, Chloride 78 L, Carbon Dioxide 50 H*, Anion Gap 7.1, BUN 40 H, Creatinine 1.60 H, Estimated Creat Clear 40, Estimated GFR 31 L, Est GFR ( Amer) 37 L, Glucose 128 H, Calcium 8.4 10/24/22 17:25: Troponin I 0.31 H 10/24/22 : Hemoglobin A1c 6.3 H, Lipase 214 10/25/22 06:17: WBC 17.7 H, RBC 4.24, Hgb 10.4 L, Hct 33.7 L, MCV 79.3 L, MCH 24.5 L, MCHC 30.8 L, RDW 18.4 H, Plt Count 287, MPV 8.3, Neut % (Auto) 83.2 H, Lymph % (Auto) 8.1 L, [place] % (Auto) 5.6, Eos % (Auto) 2.8, Baso % (Auto) 0.3, Neut # (Auto) 14.7 H, Lymph # (Auto) 1.4, [place] # (Auto) 1.0, Eos # (Auto) 0.5 H, Baso # (Auto) 0.1, Total Counted 100, Neutrophils % (Manual) 89 H, Lymphocytes % (Manual) 7 L, Monocytes % (Manual) 4, Platelet Estimate Normal, Hypochromasia 2+, Microcytosis 1+, Sodium 132 L, Potassium 4.0 D, Chloride 83 L, Carbon Dioxide 45 H*, Anion Gap 8.0, BUN 38 H, Creatinine 1.30 H, Estimated Creat Clear 50, Estimated GFR 39 L, Est GFR ( Amer) 47 L D, Glucose 109 H, Calcium 8.8, Magnesium 2.2 D, Total Bilirubin 1.3, AST 67 H, ALT 31, Alkaline Phosphatase 120, Total Protein 6.1 L, Albumin 3.2 L, Globulin 2.9, Albumin/Globulin Ratio 1.1 I & O for Last 24 hours: Intake & Output 10/22/22 10/23/22 10/24/22 10/25/22 23:59 23:59 23:59 23:59 Intake Total 240 / 240 Output Total 200 / 200 200 / 200 Balance -200 / -200 40 / 40 Weight 210 lb 5 oz 211 lb 3.2 oz Constitutional Constitutional: no acute distress *Routine Respiratory Exam Respiratory: Present CTA bilaterally and symmetric chest movement *Routine Cardiovascular Exam Cardiovascular: Present Normal S1 and Normal S2 Comments: A-fib noted *Routine Abdominal Exam Abdominal: Present soft and normoactive bowel sounds; Absent tenderness *Routine Extremities Exam Extremities: Present full ROM and normal capillary refill; Absent edema *Routine Skin Exam Skin: Present intact, dry and warm Deta
--- NOTE | 2022-10-25 09:41 | ECG_ITS ---
APPROVED REPORT Customer Care Manager: Conclusion 1. ATRIAL FIBRILLATION WITH ABERRANT CONDUCTION OR VENTRICULAR PREMATURE COMPLEXES 2. ST DEVIATION AND MODERATE T-WAVE ABNORMALITY, CONSIDER LATERAL ISCHEMIA [-0.1+ mV T-WAVE IN I/aVL/V5/V6] 3. ABNORMAL ECG 4. UNCONFIRMED REPORT Electronically signed by : Angelica Lares, 10/28/2022 11:55:42
--- NOTE | 2022-10-25 10:00 | HMH.OTEV ---
OT Inpatient Evaluation Rehab OT IP Evaluation Start: 10/24/22 14:12 Freq: ONCE Status: Active Protocol: Document 10/25/22 09:25 GREGORIO (Rec: 10/25/22 10:00 GREGORIO [id number]) Rehab OT IP Assessment Subjective History Ms. Rich is a 82-year-old female with history of dementia, CAD status post stenting, heart failure with preserved ejection fraction, A -fib on chronic anticoagulation, history of TAVR, diabetes, and hypertension. She originally presented to [facility] secondary to nausea and weakness. Her son provided history at [place], he is unavailable to provide history here with us. She was found to have lab abnormalities including a slight elevation of troponin, ARSLAN, hypokalemia, and elevated white cell count. They requested transfer for further evaluation and cardiology consult. Agreed to accept patient and initiate further work-up. On arrival to [facility], repeat lab series was performed showing an increase in leukocytosis from 14,000 (reported to [facility]) to 18. Creatinine marginally improved from 2-1.6. Potassium still low at 2.6. Troponin 0.23. EKG obtained on arrival shows A-fib with rate control of 85. No ischemic changes. Consulted cardiology for further assistance. Received a liter of fluids in transit from [facility]. Reportedly head CT, chest x- ray, UA obtained that were all unremarkable with no acute findings. On initial evaluation patient complain
--- NOTE | 2022-10-25 11:00 | HMH.PTEV ---
Physical Therapy Evaluation Rehab PT IP Evaluation Start: 10/24/22 14:12 Freq: ONCE Status: Active Protocol: Document 10/25/22 10:53 PHORKAMILA (Rec: 10/25/22 11:00 PHORNE [id number]) Subjective/History History History 82 yowf adm to [facility] ARSLAN and hyperkalemia. She reports she lives with family 3-4 steps to enter the home and she is generally independent with all mobility without AD at baseline. Subjective Subjective Pt reports feelinge tired this am, but otherwise ok. Rehab PT IP Eval Objective Appearance Patient Behavior Appropriate Patient Orientation Person,Place,Time Difficulty following instructions none Speech Pattern Clear Ambulation Patient Able to Ambulate Yes Ambulation Observation IP General Gait Pattern Observation Wide Based Gait,Shuffling Step Ambulation Distance (feet) 10 Ambulation Assistive Device None Ambulation Ability Minimal x 2 (25% assist) Balance Ability to Arise Able, uses arms to help Sitting Balance Steady, safe Standing Balance Steady, wide stance Dynamic Sitting Balance Ability Fair Dynamic Standing Balance Ability Poor Transfers Bed Transfer Ability Minimal x 2 (25% assist) Chair Transfer Ability Minimal x 2 (25% assist) Sit to Stand Bed Transfer Ability Minimal x 2 (25% assist) Sit to Stand Chair Transfer Ability Minimal x 2 (25% assist) Rehab PT IP prob,goals,plan Problems Date of Evaluation: 10/25/22 PT IP Problems Bed Mobility,Transfers,Gait Rehab Potential Rehab Potential Good Plan PT Intervention Plan Bed Mobility,Transfers,Gait, Self care,Therapeutic Exercise PT Plan Frequency Daily Duration LOS Discharge Goals Bed Transfer Ability Minimal x 1 (25% assist) Sit to Stand Chair Transfer Ability Minimal x 1 (25% assist) Ambulation Assistive Device Rolling Walker Ambulation Distance (feet) 20 Discharge Plan PT Discharge Plan Pt is currently most appropriate for rehab placement once medically stable for d/c. G -code Required No Eval Complexity Eval Charge Codes 51486 - High Complexity PHYSICIAN CERTIFICATION: I certify the specified therapy services for Milagros Mckinley are required, authorized, and reviewed every 30 days.
[2022-10-25 12:00] VITALS: BP 135/62; PULSE 110; PULSE 66; RESP 18; TEMP 37.1; O2SAT 93
--- NOTE | 2022-10-25 13:25 | CARE MANAGER ---
Addendum entered by Aliya Bronson 10/28/22 10:38: Patient will discharge to [facility] level of care today. Addendum entered by Alyia Bronson 10/27/22 10:52: I have updated Abbi fuller/ [facility] that per MD this patient is not medically stable for discharge today. Updated patient information will be faxed to [facility] this AM. Addendum entered by Aliya Bronson 10/26/22 13:45: Abbi fuller/ [facility] stated this patient has been approved once medically stable for discharge. Addendum entered by [facility] 10/26/22 09:57: Per Abbi precert is still pending at this time. Addendum entered by Kyra Marin RN 10/25/22 14:53: Patient has a bed offer from [facility]. Family has accepted and authorization submitted to insurance today, per Shayla @ [facility]. CM will continue to follow. Original Note: Met with patient and spoke with her son, Neri via phone to discuss discharge planning. Per PT/OT, patient will benefit from a SNF at discharge. Patient and son agree with SNF placement. I have faxed referral to [facility]. CM will follow for continued needs.
[2022-10-25 16:00] VITALS: BP 143/82; PULSE 80; RESP 16; TEMP 37.1; O2SAT 91
--- NOTE | 2022-10-25 18:06 | PC.NURSE ---
Patient resting in bed with no complaints of nausea or vomiting. Patient had period of increased heart rate this morning, no current increase in heart rate.
[2022-10-25 20:00] VITALS: BP 118/52; PULSE 114; PULSE 80; RESP 20; TEMP 37.1; O2SAT 90
[2022-10-25 23:48] VITALS: BP 117/82; PULSE 72; RESP 20; TEMP 37.2; O2SAT 93
[2022-10-26] VITALS (9 sets, daily range): BP systolic 101–167; BP diastolic 50–71; PULSE 60–96; RESP 18–20; TEMP 36.4–37.3; O2SAT 91–99; BMI 38.3
--- NOTE | 2022-10-26 05:09 | PC.NURSE ---
Patient has had a good night. Has rested most of the night. No complaints were noted by patient.
[2022-10-26 06:40] LABS: Basophils % 0.2 % (0.1-2.0); Eosinophils # 0.4 K/mm3 (0.0-0.4); Eosinophils % 1.6 % (0.1-12.0); Hematocrit 31.8 % (37.0-47.0); Hemoglobin 10.1 g/dL (12.2-16.2); Lymphocytes # 1.6 K/mm3 (0.7-4.5); Lymphocytes % 7.3 % (10-50); Mean Corpuscular HGB Conc 31.8 g/dL (31.8-35.4); Mean Corpuscular Hemoglobin 24.9 pg (27.0-31.2); Mean Corpuscular Volume 78.5 fl (81-99); Mean Platelet Volume 8.4 fl (7.4-10.4); Monocytes % 4.8 % (1.7-9.3); Neutrophils # 18.6 K/mm3 (1.8-7.8); Neutrophils % 86.1 % (37.0-80.0); Platelet Count 271 K/mm3 (142-424); Red Blood Count 4.05 M/mm3 (4.20-5.40); Red Cell Distribution Width 18.6 % (11.5-17.5); White Blood Count 21.6 K/mm3 (4.8-10.8)
[2022-10-26 06:42] LABS: Chloride 83 mmol/L (98-107); MANUAL DIFFERENTIAL MANUAL DIFFERENTIAL (MANUAL DIFF); Potassium 3.2 mmoL/L (3.5-5.1); Sodium 129 mmol/L (136-145)
[2022-10-26 06:45] LABS: Blood Urea Nitrogen 42 mg/dl (7-17); Calcium 8.6 mg/dl (8.4-10.2); Creatinine Clearance Estimated 60 mL/min (50-200); Estimated Glomerular Filt Rate 47 ml/min (>60); GFR (African American) 57 ML/MIN (>60); Glucose 112 mg/dl (74-100)
[2022-10-26 06:52] LABS: Anion Gap 6.2 mEq/L (5-15); Carbon Dioxide 43 mmol/L (22.0-30.0)
[2022-10-26 07:52] LABS: Eosinophils % 1 % (0-3); Hypochromasia 2+; Lymphocytes % 8 % (10-50); Monocytes % 3 % (2-9); Neutrophils % 88 % (42-76); Platelet Estimate Normal; Total Cells Counted 100
--- NOTE | 2022-10-26 09:05 | EXP.PN ---
Subjective *Date: 10/26/22 *Time: 22:46 Interval history: She has had exertional dyspnea denies chest pain denies dysuria and diarrhea she doesn't feel well overall Exam Data for Last 24 hours Vital signs and Labs for Last 24 Hours: Temp Pulse Resp BP Pulse Ox O2 Del Method O2 Flow Rate 98.2 F 80 18 167/71 H 91 L Nasal Cannula 2.5 10/26/22 07:15 10/26/22 08:00 10/26/22 07:15 10/26/22 07:15 10/26/22 07:15 10/26/22 07:15 10/26/22 07:15 Laboratory Results - last 24 hr 10/26/22 06:13: WBC 21.6 H*, RBC 4.05 L, Hgb 10.1 L, Hct 31.8 L, MCV 78.5 L, MCH 24.9 L, MCHC 31.8, RDW 18.6 H, Plt Count 271, MPV 8.4, Neut % (Auto) 86.1 H, Lymph % (Auto) 7.3 L, [place] % (Auto) 4.8, Eos % (Auto) 1.6, Baso % (Auto) 0.2, Neut # (Auto) 18.6 H, Lymph # (Auto) 1.6, [place] # (Auto) 1.0, Eos # (Auto) 0.4, Baso # (Auto) 0.0, Total Counted 100, Neutrophils % (Manual) 88 H, Lymphocytes % (Manual) 8 L, Monocytes % (Manual) 3, Eosinophils % (Manual) 1, Platelet Estimate Normal, Hypochromasia 2+, Sodium 129 L, Potassium 3.2 L, Chloride 83 L, Carbon Dioxide 43 H*, Anion Gap 6.2, BUN 42 H, Creatinine 1.10 H, Estimated Creat Clear 60, Estimated GFR 47 L, Est GFR ( Amer) 57 L D, Glucose 112 H, Calcium 8.6 I & O for Last 24 hours: Intake & Output 10/23/22 10/24/22 10/25/22 10/26/22 23:59 23:59 23:59 23:59 Intake Total 1080 / 1080 720 / 720 Output Total 200 / 200 650 / 650 500 / 500 Balance -200 / -200 430 / 430 220 / 220 Weight 95.396 kg 95.799 kg 98.112 kg Microbiology Reports for the Last 24 Hours: Microbiology 10/24/22 16:31 Urine,Catheterized Urine Culture - Preliminary NO GROWTH AFTER 24 HOURS Constitutional Constitutional: no acute distress *Routine HEENT Exam Head: Present normocephalic Eye: Present EOMI and PERRL ENT: Present mucous membranes moist *Routine Neck Exam Neck: Present supple; Absent lymphadenopathy *Routine Respiratory Exam Respiratory: Present CTA bilaterally *Routine Cardiovascular Exam Cardiovascular: Present RRR *Routine Abdominal Exam Abdominal: Present soft and normoactive bowel sounds; Absent tenderness *Routine Extremities Exam Extremities: Absent cyanosis, clubbing or edema *Routine Skin Exam Skin: Present warm; Absent rash *Routine Neurological Exam Neurological: Present alert and oriented X3 Assessment and Plan *Assessment and plan (1) Non-STEMI (non-ST elevated myocardial infarction): Status: Acute Category: Medical Code(s): I21.4 - Non-ST elevation (NSTEMI) myocardial infarction (2) ARSLAN (acute kidney injury): Status: Acute Category: Medical Code(s): N17.9 - Acute kidney failure, unspecified (3) ASD (atrial septal defect): Status: Acute Category: Medical Code(s): Q21.10 - Atrial septal defect, unspecified (4) Heart failure with preserved ejection fraction: Status: Acute Qualifiers: Heart failure chronicity: chronic Qualified Code(s): I50.32 - Chronic diastolic (congestive) heart failure Category: Medical Code(s): I50.30 - Unspecified diastolic (congestive) heart failure (5) Hypertension: Status: Acute Qualifiers: Hypertension type: primary hypertension Qualified Code(s): I10 - Essential (primary) hypertension Category: Medical Code(s): I10 - Essential (primary) hypertension (6) Atrial fibrillation: Status: Acute Qualifiers: Atrial fibrillation type: longstanding persistent Qualified Code(s): I48.11 - Longstanding persistent atrial fibrillation Category: Medical Code(s): I48.91 - Unspecified atrial fibrillation (7) Diabetes mellitus: Status: Acute Qualifiers: Diabetes mellitus type: type 2 Diabetes mellitus senior living insulin use: without senior living use Diabetes mellitus complication status: without complication Qualified Code(s): E11.9 - Type 2 diabetes mellitu
--- NOTE | 2022-10-26 09:21 | EXP.CARD.PN ---
Subjective Subjective Date: 10/26/22 Time: 08:00 Principal diagnosis: ARSLAN, hyperkalemia, acute myocardial injury Interval history: Doing well, denies chest pain or shortness of breath, morning labs reviewed. Exam Data for Last 24 hours Vital signs and Labs for Last 24 Hours: Temp Pulse Resp BP Pulse Ox O2 Del Method O2 Flow Rate 98.2 F 80 18 167/71 H 91 L Nasal Cannula 2.5 10/26/22 07:15 10/26/22 08:00 10/26/22 07:15 10/26/22 07:15 10/26/22 07:15 10/26/22 07:15 10/26/22 07:15 Laboratory Results - last 24 hr 10/26/22 06:13: WBC 21.6 H*, RBC 4.05 L, Hgb 10.1 L, Hct 31.8 L, MCV 78.5 L, MCH 24.9 L, MCHC 31.8, RDW 18.6 H, Plt Count 271, MPV 8.4, Neut % (Auto) 86.1 H, Lymph % (Auto) 7.3 L, [place] % (Auto) 4.8, Eos % (Auto) 1.6, Baso % (Auto) 0.2, Neut # (Auto) 18.6 H, Lymph # (Auto) 1.6, [place] # (Auto) 1.0, Eos # (Auto) 0.4, Baso # (Auto) 0.0, Total Counted 100, Neutrophils % (Manual) 88 H, Lymphocytes % (Manual) 8 L, Monocytes % (Manual) 3, Eosinophils % (Manual) 1, Platelet Estimate Normal, Hypochromasia 2+, Sodium 129 L, Potassium 3.2 L, Chloride 83 L, Carbon Dioxide 43 H*, Anion Gap 6.2, BUN 42 H, Creatinine 1.10 H, Estimated Creat Clear 60, Estimated GFR 47 L, Est GFR ( Amer) 57 L D, Glucose 112 H, Calcium 8.6 I & O for Last 24 hours: Intake & Output 10/23/22 10/24/22 10/25/22 10/26/22 23:59 23:59 23:59 23:59 Intake Total 1080 / 1080 720 / 720 Output Total 200 / 200 650 / 650 500 / 500 Balance -200 / -200 430 / 430 220 / 220 Weight 210 lb 5 oz 211 lb 3.2 oz 216 lb 4.8 oz Microbiology Reports for the Last 24 Hours: Microbiology 10/24/22 16:31 Urine,Catheterized Urine Culture - Preliminary NO GROWTH AFTER 24 HOURS Constitutional Constitutional: no acute distress *Routine Respiratory Exam Respiratory: Present CTA bilaterally and symmetric chest movement *Routine Cardiovascular Exam Cardiovascular: Present Normal S1 and Normal S2 Comments: A-fib noted *Routine Abdominal Exam Abdominal: Present soft and normoactive bowel sounds; Absent tenderness *Routine Extremities Exam Extremities: Present full ROM and normal capillary refill; Absent edema *Routine Skin Exam Skin: Present intact, dry and warm Detailed Neck Exam: Thyroids Thyroid: Absent bruit Progress Note: A&P Assessment and plan (1) Non-STEMI (non-ST elevated myocardial infarction): Status: Acute (2) ARSLAN (acute kidney injury): Status: Acute (3) ASD (atrial septal defect): Status: Acute (4) Heart failure with preserved ejection fraction: Status: Acute (5) Hypertension: Status: Acute (6) Atrial fibrillation: Status: Acute (7) Diabetes mellitus: Status: Acute (8) Severe aortic stenosis: Status: Acute (9) Abdominal pain: Status: Acute Assessment and Plan Assessment and Plan for All Diagnoses:: Acute myocardial injury/elevated trop Coronary artery disease -Elevated troponin in the presence of AKA- Trop 0.23 -No acute EKG changes noted -Patient denies chest pain or shortness of breath currently -VIVIANA to LAD and RCA 06/15 -Continue Brilinta 90 mg twice daily, aspirin 81 mg p.o. daily, atorvastatin 40 mg p.o. daily, metoprolol 50 mg p.o. twice daily ARSLAN-resolving -creatinine 1.10 today, was 1.6 on admission Hypokalemia-improving -Potassium 3.2 today. History of chronic HFpEF NYHA I-II S/p TAVR -Echo 07/2022- EF 50-60%, left atrium is severely dilated, there is a secundum ASD with [id number] flow by Doppler, bioprosthetic valve is well-seated,? no regional wall motion noted. -Hold Lasix, aldactone, and Jardiance due to ARSLAN. -10/26/2022: Remains stable. Denies chest pain, shortness of breath. mild lower extremity edema noted on exam this morning. will increase aldactone to 50mg daily A-fib Александр Vasc score 7 -Currently rate controlled -Continue Xarelto 15 mg p.o. daily -Continue metoprolol 50 mg p.o. twice daily
--- NOTE | 2022-10-26 09:22 | XR_ITS ---
FINAL REPORT CLINICAL HISTORY: leukocytosis COMPARISON: 10/24/2022 FINDINGS: SINGLE VIEW CHEST The heart size is normal. The mediastinum is normal. Artifact obscures the right thorax. There are mild but worsening left lung base opacities consistent with worsening atelectasis or pneumonia. There is no pneumothorax. IMPRESSION: Artifact obscures the right thorax. Mild but worsening left lung base opacities consistent with worsening atelectasis or pneumonia. Reviewed, Interpreted and Dictated by Cuong Jewell III, MD Transcribed by Kandis Nelson Authenticated and [facility]
--- NOTE | 2022-10-26 12:22 | XR_ITS ---
FINAL REPORT CLINICAL HISTORY: leukocytosis, repeat for artifact COMPARISON: None FINDINGS: A single portable view of the chest was obtained. The heart size and pulmonary vascularity are within normal limits. The mediastinum is within normal limits. Bibasilar pulmonary opacities may represent atelectasis or pneumonia. The bony thorax is intact. IMPRESSION: Bibasilar pulmonary opacities. Reviewed, Interpreted and Dictated by Cuong Jewell III, MD Transcribed by Oma Jesus Authenticated and . [facility]
--- NOTE | 2022-10-26 18:54 | PC.NURSE ---
Patient remains on 3LNC. Lungs clear on ascultation. Patient sob with exertion but able to recover quickly. VS stable. Patient confused, alert to self during shift. No other changes noted.
[2022-10-26 21:18] LABS: POC Glucose,Bedside 154 (70-110)
[2022-10-27] VITALS (7 sets, daily range): BP systolic 102–136; BP diastolic 55–84; PULSE 60–90; RESP 18–22; TEMP 36.6–36.9; O2SAT 95–99; BMI 38.6
[2022-10-27 06:06] LABS: Basophils # 0.1 K/mm3 (0-0.2); Basophils % 0.3 % (0.1-2.0); Eosinophils # 0.5 K/mm3 (0.0-0.4); Eosinophils % 3.5 % (0.1-12.0); Hematocrit 32.5 % (37.0-47.0); Lymphocytes # 1.4 K/mm3 (0.7-4.5); Lymphocytes % 10.1 % (10-50); Mean Corpuscular HGB Conc 30.7 g/dL (31.8-35.4); Mean Corpuscular Hemoglobin 24.2 pg (27.0-31.2); Mean Platelet Volume 8.3 fl (7.4-10.4); Monocytes # 0.7 K/mm3 (0.1-1.0); Monocytes % 5.3 % (1.7-9.3); Neutrophils # 11.2 K/mm3 (1.8-7.8); Neutrophils % 80.8 % (37.0-80.0); Platelet Count 249 K/mm3 (142-424); Red Blood Count 4.12 M/mm3 (4.20-5.40); Red Cell Distribution Width 18.9 % (11.5-17.5); White Blood Count 13.8 K/mm3 (4.8-10.8)
[2022-10-27 06:13] LABS: Chloride 90 mmol/L (98-107); Sodium 132 mmol/L (136-145)
[2022-10-27 06:14] LABS: Potassium 3.6 mmoL/L (3.5-5.1)
[2022-10-27 06:16] LABS: Blood Urea Nitrogen 42 mg/dl (7-17); Creatinine Clearance Estimated 55 mL/min (50-200); Estimated Glomerular Filt Rate 43 ml/min (>60); GFR (African American) 52 ML/MIN (>60)
[2022-10-27 06:17] LABS: Anion Gap 6.6 mEq/L (5-15); Calcium 8.5 mg/dl (8.4-10.2); Carbon Dioxide 39 mmol/L (22.0-30.0); Glucose 92 mg/dl (74-100)
--- NOTE | 2022-10-27 08:45 | EXP.PHA.PN ---
Subjective *Date: 10/27/22 *Time: 08:45 Medical Exam Vital signs and Labs for Last 24 Hours: Vital Signs Temp Pulse Pulse Resp BP Pulse Ox O2 Del Method 10/27/22 08:00 98.4 F 90 20 136/55 L 97 Nasal Cannula 10/27/22 07:00 Room Air 10/27/22 05:00 Room Air 10/27/22 04:00 97.8 F 77 18 130/84 96 Nasal Cannula 10/27/22 04:00 60 10/27/22 00:00 60 10/27/22 03:00 Room Air 10/27/22 01:00 Room Air 10/26/22 23:00 Room Air 10/27/22 00:00 98.3 F 77 18 130/62 98 Nasal Cannula 10/26/22 20:00 60 10/26/22 21:00 Room Air 10/26/22 21:31 Room Air 10/26/22 20:00 97.5 F L 76 18 137/59 L 99 Nasal Cannula 10/26/22 18:52 Nasal Cannula 10/26/22 17:00 Nasal Cannula 10/26/22 16:00 75 10/26/22 15:00 Nasal Cannula 10/26/22 13:00 Nasal Cannula 10/26/22 11:15 Nasal Cannula 10/26/22 09:32 Nasal Cannula 10/26/22 15:11 98.6 F 85 18 114/66 93 L Nasal Cannula 10/26/22 13:29 80 10/26/22 10:00 Nasal Cannula 10/26/22 11:18 98.2 F 71 18 158/69 H 95 Nasal Cannula O2 Flow Rate 10/27/22 08:00 3 10/27/22 07:00 10/27/22 05:00 10/27/22 04:00 3 10/27/22 04:00 10/27/22 00:00 10/27/22 03:00 10/27/22 01:00 10/26/22 23:00 10/27/22 00:00 3 10/26/22 20:00 10/26/22 21:00 10/26/22 21:31 10/26/22 20:00 3 10/26/22 18:52 3 10/26/22 17:00 3 10/26/22 16:00 10/26/22 15:00 3 10/26/22 13:00 10/26/22 11:15 3 10/26/22 09:32 3 10/26/22 15:11 10/26/22 13:29 10/26/22 10:00 3 10/26/22 11:18 Intake and Output 10/26/22 10/27/22 10/27/22 23:59 07:59 15:59 Output Total 0 / 800 900 / 900 Balance 0 / 400 -900 / -900 Output: Output, Urine Amount 0 / 800 900 / 900 Other: Number of Unmeasured Voids 1 Weight 98.883 kg Patient Weight 10/27/22 23:59 Weight 98.883 kg Laboratory Results - last 24 hr 10/26/22 20:07: POC Glucose 154 H 10/27/22 05:46: WBC 13.8 H D, RBC 4.12 L, Hgb 10.0 L, Hct 32.5 L, MCV 79.0 L, MCH 24.2 L, MCHC 30.7 L, RDW 18.9 H, Plt Count 249, MPV 8.3, Neut % (Auto) 80.8 H, Lymph % (Auto) 10.1, [place] % (Auto) 5.3, Eos % (Auto) 3.5, Baso % (Auto) 0.3, Neut # (Auto) 11.2 H, Lymph # (Auto) 1.4, [place] # (Auto) 0.7, Eos # (Auto) 0.5 H, Baso # (Auto) 0.1, Sodium 132 L, Potassium 3.6, Chloride 90 L, Carbon Dioxide 39 H, Anion Gap 6.6, BUN 42 H, Creatinine 1.20 H, Estimated Creat Clear 55, Estimated GFR 43 L, Est GFR ( Amer) 52 L, Glucose 92, Calcium 8.5 I & O for Labs for Last 24 Hours: Intake & Output 10/24/22 10/25/22 10/26/22 10/27/22 23:59 23:59 23:59 23:59 Intake Total 1080 / 1080 1200 / 1200 Output Total 200 / 200 650 / 650 800 / 800 900 / 900 Balance -200 / -200 430 / 430 400 / 400 -900 / -900 Weight 95.396 kg 95.799 kg 98.112 kg 98.883 kg Microbiology Reports for the Last 24 Hours: Microbiology 10/24/22 16:31 Urine,Catheterized Urine Culture - Final NO GROWTH AFTER 48 HOURS The patient's infection will respond to the chosen ABx?: Yes (EMPIRIC THERAPY) Is the patient receiving the right drug, dose, and route?: Yes Could a more targeted ABx be ordered?: No (CULTURES PENDING)
--- NOTE | 2022-10-27 09:12 | EXP.PN ---
Subjective *Date: 10/27/22 *Time: 09:12 Interval history: She feels much better today some dyspnea no cough no pain Exam Data for Last 24 hours Vital signs and Labs for Last 24 Hours: Temp Pulse Resp BP Pulse Ox O2 Del Method O2 Flow Rate 98.4 F 90 20 136/55 L 97 Nasal Cannula 3 10/27/22 08:00 10/27/22 08:00 10/27/22 08:00 10/27/22 08:00 10/27/22 08:00 10/27/22 08:00 10/27/22 08:00 Laboratory Results - last 24 hr 10/26/22 20:07: POC Glucose 154 H 10/27/22 05:46: WBC 13.8 H D, RBC 4.12 L, Hgb 10.0 L, Hct 32.5 L, MCV 79.0 L, MCH 24.2 L, MCHC 30.7 L, RDW 18.9 H, Plt Count 249, MPV 8.3, Neut % (Auto) 80.8 H, Lymph % (Auto) 10.1, [place] % (Auto) 5.3, Eos % (Auto) 3.5, Baso % (Auto) 0.3, Neut # (Auto) 11.2 H, Lymph # (Auto) 1.4, [place] # (Auto) 0.7, Eos # (Auto) 0.5 H, Baso # (Auto) 0.1, Sodium 132 L, Potassium 3.6, Chloride 90 L, Carbon Dioxide 39 H, Anion Gap 6.6, BUN 42 H, Creatinine 1.20 H, Estimated Creat Clear 55, Estimated GFR 43 L, Est GFR ( Amer) 52 L, Glucose 92, Calcium 8.5 I & O for Last 24 hours: Intake & Output 10/24/22 10/25/22 10/26/22 10/27/22 23:59 23:59 23:59 23:59 Intake Total 1080 / 1080 1200 / 1200 Output Total 200 / 200 650 / 650 800 / 800 900 / 900 Balance -200 / -200 430 / 430 400 / 400 -900 / -900 Weight 95.396 kg 95.799 kg 98.112 kg 98.883 kg Microbiology Reports for the Last 24 Hours: Microbiology 10/24/22 16:31 Urine,Catheterized Urine Culture - Final NO GROWTH AFTER 48 HOURS Constitutional Constitutional: no acute distress *Routine HEENT Exam Head: Present normocephalic Eye: Present EOMI and PERRL ENT: Present mucous membranes moist *Routine Neck Exam Neck: Present supple; Absent lymphadenopathy *Routine Respiratory Exam Respiratory: Present CTA bilaterally *Routine Cardiovascular Exam Cardiovascular: Present RRR *Routine Abdominal Exam Abdominal: Present soft and normoactive bowel sounds; Absent tenderness *Routine Extremities Exam Extremities: Absent cyanosis, clubbing or edema *Routine Skin Exam Skin: Present warm; Absent rash *Routine Neurological Exam Neurological: Present alert and oriented X3 Assessment and Plan *Assessment and plan (1) Non-STEMI (non-ST elevated myocardial infarction): Status: Acute Category: Medical Code(s): I21.4 - Non-ST elevation (NSTEMI) myocardial infarction (2) ARSLAN (acute kidney injury): Status: Acute Category: Medical Code(s): N17.9 - Acute kidney failure, unspecified (3) ASD (atrial septal defect): Status: Acute Category: Medical Code(s): Q21.10 - Atrial septal defect, unspecified (4) Heart failure with preserved ejection fraction: Status: Acute Qualifiers: Heart failure chronicity: chronic Qualified Code(s): I50.32 - Chronic diastolic (congestive) heart failure Category: Medical Code(s): I50.30 - Unspecified diastolic (congestive) heart failure (5) Hypertension: Status: Acute Qualifiers: Hypertension type: primary hypertension Qualified Code(s): I10 - Essential (primary) hypertension Category: Medical Code(s): I10 - Essential (primary) hypertension (6) Atrial fibrillation: Status: Acute Qualifiers: Atrial fibrillation type: longstanding persistent Qualified Code(s): I48.11 - Longstanding persistent atrial fibrillation Category: Medical Code(s): I48.91 - Unspecified atrial fibrillation (7) Diabetes mellitus: Status: Acute Qualifiers: Diabetes mellitus type: type 2 Diabetes mellitus exterminator insulin use: without halfway use Diabetes mellitus complication status: without complication Qualified Code(s): E11.9 - Type 2 diabetes mellitus without complications Category: Medical Code(s): E11.9 - Type 2 diabetes mellitus without complications (8) Severe aortic stenosis: Status:
--- NOTE | 2022-10-27 11:00 | CA_ITS ---
APPROVED REPORT EXAM: Comprehensive 2D, Doppler, and color-flow Echocardiogram Blacksmith Hammer Operator: PRISCILA Galvin, RVS Ht: 5 ft 2 in Wt: 248lbs BSA: 2.09 HR: 70 bpm BP: 130/80 mmHg Indications: AVR, respiratory failure, apnea, Moderate MR, CAD, Afib, Hx-MO Echo Enhancing Agent Comments: Technically limited exam due to AMS, Patient scanned in chair but unable to remain in a set position. 2D Dimensions Aortic Root 3.18 cm F: 2.7 - 3.3 LA Volume 155.30 mL Left Atrium 6.29 cm F: 2.7 - 3.8 LA Volume Index 73.95 mL/m2 (M/F) 16-34 LVOT 1.99 cm (M/F) 1.5-2.5 M-Mode Dimensions RVDd 2.73 cm (0.9-2.6) LA Diam 6.74 cm (1.9-4.0) LVDd 5.97 cm (3.5-5.7) LVDs 4.60 cm (3.5-5.7) IVSd 0.79 cm (0.6-1.1) PWd 0.95 cm (0.6-1.1) EF (Teich) 45.30% EPSs 0.77 cm FS 22.90% EDV (Teich) 177.90 mL TAPSE 1.37 (<1.7) ESV (Teich) 97.30 mL LV Diastology MED E' 10.00 (< 7 cm/sec) LAT E' 7.30 (<10 cm/sec) LAT A' 3.60 cm/s Aortic Valve LVOT Max 79.00 (70-110 cm/s) LVOT VTI 14.75 cm AoV Peak Edwin. 170.00 (50-130 cm/s) AO Peak GR. 11.60 mmHg AO Mean GR. 5.60 (<5 mmHg) AO VTI 35.15 (18-25 cm) CONCHIS (VTI) 1.31 (2.5-4.5 cm2) Pulmonary Valve PV Peak Velocity 77.00 (50-150 cm/s) HI End VMAX 165.00 cm/s Tricuspid Valve TR P. Velocity 263.00 cm/s RAP Estimate 10.00 mmHg RVSP 37.70 mmHg Left Ventricle The left ventricle is normal size. The left ventricular systolic function is normal. The left ventricular ejection fraction is within the normal range. There is increased LV wall thickness. There is normal LV segmental wall motion. There is grade II diastolic dysfunction present. LVEF is 65%. Right Ventricle The right ventricle is normal size. The right ventricular systolic function is normal. Atria Left atrium is severely dilated. The right atrium size is normal. There is a [id number] interatrial shunt present on color Doppler. Aortic Valve There is a bioprosthetic aortic valve present. The valve is well-seated. There is no aortic valvular stenosis. Mean AV gradient is 6 mmHg. The peak AV gradient is 12 mmHg. Peak velocity is 1.7 m/s. There is trace central AI. There is no paravalvular AI. Mitral Valve There is severe mitral annular calcification present. The posterior MV leaflet appears restricted in motion due to calcification. No evidence of mitral valve stenosis. Mean MV gradient 4 mmHg. Mild to moderate mitral regurgitation. Tricuspid Valve The tricuspid valve leaflets are thin and pliable. Mild tricuspid regurgitation. RVSP is 30-35 mmHg. Pulmonic Valve The pulmonary valve is normal in structure. Mild pulmonic regurgitation. Great Vessels The aortic root is normal in size. IVC is normal in size and collapses >50% with inspiration. Pericardium There is no pericardial effusion. Other Information Study Quality: Adequate Conclusion Normal biventricular systolic function. Grade II diastolic dysfunction. s/p bioprosthetic AV. Trace central AI. No paravalvular AI. No significant bioprosthetic AV stenosis. Severe MAC. Mild to moderate MR. Mild TR. Elevated RVSP 30-35 mmHg. The patient is noted to be in atrial fibrillation during the acquisition of the study images. Electronically signed by : Angelica Lares, 10/28/2022 17:13:43
--- NOTE | 2022-10-27 11:59 | PC.NURSE ---
pt is up in chair with chair alarm on
[2022-10-27 12:57] LABS: POC Glucose,Bedside 147 (70-110)
[2022-10-27 16:54] LABS: POC Glucose,Bedside 103 (70-110)
[2022-10-28] VITALS: BP 130/83; PULSE 72; RESP 18; TEMP 36.6
[2022-10-28 01:18] LABS: POC Glucose,Bedside 134 (70-110)
[2022-10-28 04:00] VITALS: PULSE 70; BMI 38.2
[2022-10-28 06:24] LABS: Chloride 95 mmol/L (98-107)
[2022-10-28 06:25] LABS: Potassium 3.8 mmoL/L (3.5-5.1); Sodium 132 mmol/L (136-145)
[2022-10-28 06:27] LABS: Blood Urea Nitrogen 39 mg/dl (7-17); Creatinine Clearance Estimated 60 mL/min (50-200); Estimated Glomerular Filt Rate 47 ml/min (>60); GFR (African American) 57 ML/MIN (>60)
[2022-10-28 06:28] LABS: Anion Gap 8.8 mEq/L (5-15); Calcium 8.5 mg/dl (8.4-10.2); Carbon Dioxide 32 mmol/L (22.0-30.0); Glucose 94 mg/dl (74-100)
[2022-10-28 06:30] LABS: Basophils % 0.3 % (0.1-2.0); Eosinophils # 0.5 K/mm3 (0.0-0.4); Eosinophils % 3.5 % (0.1-12.0); Hematocrit 30.5 % (37.0-47.0); Hemoglobin 9.6 g/dL (12.2-16.2); Lymphocytes # 1.3 K/mm3 (0.7-4.5); Lymphocytes % 10.1 % (10-50); Mean Corpuscular HGB Conc 31.6 g/dL (31.8-35.4); Mean Corpuscular Hemoglobin 24.7 pg (27.0-31.2); Mean Corpuscular Volume 78.4 fl (81-99); Mean Platelet Volume 8.9 fl (7.4-10.4); Monocytes # 0.8 K/mm3 (0.1-1.0); Monocytes % 6.5 % (1.7-9.3); Neutrophils % 79.5 % (37.0-80.0); Platelet Count 272 K/mm3 (142-424); Red Blood Count 3.89 M/mm3 (4.20-5.40); White Blood Count 12.6 K/mm3 (4.8-10.8)
[2022-10-28 08:00] VITALS: BP 144/79; PULSE 77; PULSE 78; RESP 18; TEMP 36.8; O2SAT 96; O2SAT 98
--- NOTE | 2022-10-28 09:32 | EXP.PULM.CON ---
History of Present Illness History of present illness: Ms. Mckinley 82-year-old female with documented history of dementia, CAD status post stenting, Septum secundum Left to right shunt, bioprosthetic aortic valve heart failure preserved ejection fraction, A-fib on chronic anticoagulation, diabetes hypertension presented to the hospital with weakness and her admission chest Prior CT showed concerning bilateral lower lobe interstitial changes and pulmonary was called for further evaluation. [facility] Disclaimer: The information contained in this section may have been updated after the patient was seen, as this information can be updated by other users. Medical History (Updated 10/28/22 @ 12:57 by Yuan Perez MD) Abnormal screening CT of chest Atrial fibrillation Bilateral carotid bruits CAD (coronary artery disease) Carotid artery stenosis CHF exacerbation Congestive heart failure Coronary artery disease Dementia Diabetes mellitus, type 2 Dyspnea Edema History of gastroesophageal reflux (GERD) History of heart attack Hypokalemia Hypomagnesemia ILD (interstitial lung disease) Moderate mitral regurgitation Pneumonia Syncope Surgical History History of hysterectomy S/P TAVR (transcatheter aortic valve replacement) Stented coronary artery Family History No significant family history Social History Smoking Status: Former smoker alcohol intake: never current occupational status: retired Travel in the last 8 weeks: Inside the [place] household members: none housing: house Review of Systems Constitutional Constitutional: Reports anorexia, Reports body ache(s) and Reports fatigue Eyes Eyes: Denies eye discharge, Denies dry eyes, Denies irritation and Denies itchy eyes ENT Ears, Nose, Mouth, and Throat: Denies epistaxis, Denies facial pain, Denies lip swelling and Denies throat swelling *Cardiovascular Cardiovascular: Reports dyspnea, Reports dyspnea on exertion and Reports orthopnea *Respiratory Respiratory: Reports chest congestion, Reports cough, Reports dyspnea, Reports dyspnea on exertion and Reports wheezing *Gastrointestinal Gastrointestinal: Denies abdominal pain, Denies belching and Denies cramping *Musculoskeletal Musculoskeletal: Reports back pain, Reports myalgias and Reports other (No small joint swelling or Pain) Psychiatric Psychiatric: Denies homicidal ideation and Denies suicidal ideation Endocrine Endocrine: Reports fatigue and Denies heat intolerance Hematologic/Lymphatic Hematologic/Lymphatic: Denies easy bleeding and Denies lymphadenopathy Allergic/Immunologic Allergic/Immunologic: Denies itchy eyes, Denies lip swelling, Denies throat swelling and Reports wheezing Pulmonology Exam Inpatient Vital signs and Labs for Last 24 Hours: Temp Pulse Resp BP Pulse Ox O2 Del Method O2 Flow Rate 98.2 F 77 18 144/79 H 98 Nasal Cannula 1.5 10/28/22 08:00 10/28/22 08:00 10/28/22 08:00 10/28/22 08:00 10/28/22 08:00 10/28/22 09:00 10/28/22 09:00 Laboratory Results - last 24 hr 10/27/22 12:48: POC Glucose 147 H 10/27/22 16:23: POC Glucose 103 10/27/22 20:01: POC Glucose 134 H 10/28/22 05:56: WBC 12.6 H, RBC 3.89 L, Hgb 9.6 L, Hct 30.5 L, MCV 78.4 L, MCH 24.7 L, MCHC 31.6 L, RDW 19.0 H, Plt Count 272, MPV 8.9, Neut % (Auto) 79.5, Lymph % (Auto) 10.1, [place] % (Auto) 6.5, Eos % (Auto) 3.5, Baso % (Auto) 0.3, Neut # (Auto) 10.0 H, Lymph # (Auto) 1.3, [place] # (Auto) 0.8, Eos # (Auto) 0.5 H, Baso # (Auto) 0.0, Sodium 132 L, Potassium 3.8, Chloride 95 L, Carbon Dioxide 32 H, Anion Gap 8.8, BUN 39 H, Creatinine 1.10 H, Estimated Creat Clear 60, Estimated GFR 47 L, Est GFR ( Amer) 57 L, Glucose 94, Calcium 8.5 I & O for Labs for Last 24 Hours: Intake & Output 10/25/22 10/26/22 10/27/22 10/28/22 23:59 23:59 23:59 23:59 Intake Tot
[2022-10-28 10:17] LABS: POC Glucose,Bedside 133 (70-110)
--- NOTE | 2022-10-28 10:37 | PC.NURSE ---
Pt. is 86% on ra with moving from bed to chair. Sats 93-96 on ra just at rest.
[2022-10-28 12:00] VITALS: BP 141/84; PULSE 65; PULSE 79; RESP 18; TEMP 36.8; O2SAT 96
--- NOTE | 2022-10-28 12:19 | EXP.DC.SUM ---
General Admission date:: 10/24/22 HPI HPI HPI: Ms. Rich is a 82-year-old female with history of dementia, CAD status post stenting, heart failure with preserved ejection fraction, A-fib on chronic anticoagulation, history of TAVR, diabetes, and hypertension. She originally presented to [facility] secondary to nausea and weakness. Her son provided history at [place], he is unavailable to provide history here with us. She was found to have lab abnormalities including a slight elevation of troponin, ARSLAN, hypokalemia, and elevated white cell count. They requested transfer for further evaluation and cardiology consult. Agreed to accept patient and initiate further work-up. On arrival to [facility], repeat lab series was performed showing an increase in leukocytosis from 14,000 (reported to [facility]) to 18. Creatinine marginally improved from 2-1.6. Potassium still low at 2.6. Troponin 0.23. EKG obtained on arrival shows A-fib with rate control of 85. No ischemic changes. Consulted cardiology for further assistance. Received a liter of fluids in transit from [facility]. Reportedly head CT, chest x-ray, UA obtained that were all unremarkable with no acute findings. On initial evaluation patient complains of diffuse abdominal pain. States she does not think she has had a bowel movement in 3 to 4 days. Denies any nausea, vomiting, chest pain, shortness of breath. Of note, she lives alone and her son checks on her. Hospital Course Hospital Course Hospital Course: Ms. Mckinley is an 82 year old female with a past medical history of dementia, cad s/p carli to lad and rca 05/2021, a fib on xarelto, history of tavr, asd, HFpEF, chronic hypoxia on supplemental oxygen at baseline, htn, hld, type 2 diabetes mellitus and dementia who presented as a transfer from [facility] with pneumonia, ARSLAN and NSTEMI on 10/24. I spoke with her daughter Mrs. Brown who states prior to this hospitalization she did not require any supplemental oxygen and was ambulating with a walker. also she states the patient at baseline can be disoriented to place and time. Her troponin levels were trended and stable, peaked at 0.34. Kidney injury resolved. She received rocephin (10/24-present) and azithromycin (10/26-present). She required supplemental oxygen via nasal cannula and by day of discharge she was saturating well on room air at rest but desaturated to 86% with minimal exertion. She will discharge to [facility] with PT/OT and is to complete 3 days of augmentin and azithromycin. She will need to follow up with Pulmonology in the outpatient setting for abnormal ct findings from 07/2022 which revealed mild interestitial lung changes in the mid to lower lung zones with scattered reticulation without honeycoming or artchitectural distortion suggestive of idiopathic interstitial lung disease; 1cm indistinct ground-glass nodule right upper lobe, nonspecific. #acute hypoxic respiratory failure #community acquired pneumonia #ARSLAN #type 2 nstemi Exam Data for Last 24 hours Vital signs and Labs for Last 24 Hours: Temp Pulse Resp BP Pulse Ox O2 Del Method O2 Flow Rate 98.2 F 77 18 144/79 H 96 Room Air 1.5 10/28/22 08:00 10/28/22 08:00 10/28/22 08:00 10/28/22 08:00 10/28/22 08:00 10/28/22 12:02 10/28/22 09:00 Laboratory Results - last 24 hr 10/27/22 12:48: POC Glucose 147 H 10/27/22 16:23: POC Glucose 103 10/27/22 20:01: POC Glucose 134 H 10/28/22 05:56: WBC 12.6 H, RBC 3.89 L, Hgb 9.6 L, Hct 30.5 L, MCV 78.4 L, MCH 24.7 L, MCHC 31.6 L, RDW 19.0 H, Plt Count 272, MPV 8.9, Neut % (Auto) 79.5, Lymph % (Auto) 10.1, [place] % (Auto) 6.5, Eos % (Auto) 3.5, Baso % (Auto) 0.3, Neut # (Auto) 10.0 H, Lymph # (Auto) 1.3, [place] # (Auto) 0.8, Eos # (Auto) 0.5 H, Baso # (Auto) 0.0, Sodium 132 L, Potassium 3.8, Chloride 95 L, Carbon Dioxide 32 H, Anion Gap 8.8, BUN 39 H, Creatinine 1.10 H, Estimated Creat Simona
--- NOTE | 2022-10-28 13:07 | PC.NURSE ---
Sher[facility] crook [facility] twice [facility]
--- NOTE | 2022-10-28 13:25 | PC.NURSE ---
Report called to Sherrie NavastowSHARIF moseley to nurse Danae Llamas LPN.
== END 2022-10-28 14:35 ==
PROVIDERS: Internal Medicine; Admitting Provider Internal Medicine Adolescent Medicine; PCP Family Medicine; Visit Provider Internal Medicine Adolescent Medicine
DX: I21.4 Non-ST elevation (NSTEMI) myocardial infarction (principal); N17.9 Acute kidney failure, unspecified; Q21.10 Atrial septal defect, unspecified; I50.32 Chronic diastolic (congestive) heart failure; I11.0 Hypertensive heart disease with heart failure; I48.11 Longstanding persistent atrial fibrillation; E11.9 Type 2 diabetes mellitus without complications; I35.0 Nonrheumatic aortic (valve) stenosis; R10.84 Generalized abdominal pain; J84.9 Interstitial pulmonary disease, unspecified; J18.9 Pneumonia, unspecified organism; Z79.899 Other long term (current) drug therapy
CPT/HCPCS: 36415; 71045; 76705; 80048; 80053; 80061; 81001; 82962; 83036; 83690; 83735; 84484; 85007; 85025; 87086; 93005; 93306; 97163; 97165; 97530; G0378; J0456; J0696

== ENCOUNTER 2022-12-13 14:00 | Observation (INO) | payer MEDICARE, MEDICAID, SELFPAY ==
[2022-12-13] VITALS (18 sets, daily range): BP systolic 97–153; BP diastolic 48–89; PULSE 68–104; RESP 17–20; TEMP 36.6–36.9; O2SAT 94–99; BMI 27.5; BMI 39.4; BMI 37.5
--- NOTE | 2022-12-13 11:54 | IR_ITS ---
APPROVED REPORT Patient Location: Outpatient Psychiatric Nursing Assistant: QUINCY Harvey RT (R) PROCEDURES Selective coronary angiogram Drug-eluting stent deployment to the proximal and mid LAD Drug-eluting stent deployment to the ostial proximal first diagonal artery INDICATION Acute non-ST elevation myocardial infarction, Coronary artery disease Informed consent was obtained prior to the procedure. COMPLICATIONS NONE Estimated Blood Loss: LESS THAN 10 ML TECHNIQUE One percent lidocaine used to anesthetize the right anterior aspect of the wrist. The right radial artery was accessed via the Seldinger technique. A 6 Polish sheath was placed in the right radial artery. 2.5 mg of Verapamil, 800 mcg of nitroglycerin, 1mg Lidocaine and 5000 U Heparin were given through the arterial sheath. The papa catheter was also used to perform selective coronary angiography. Because patient was not considered a bypass candidate at the beginning the procedure once the left main artery was engaged and angiography demonstrated a critical proximal LAD stenosis it was decided to proceed immediately with intervention prior to evaluating the right coronary artery. Therapeutic Was administered giving a therapeutic ACT and a wire was placed down the LAD and first diagonal artery. A 2.5 x 12 mm noncompliant balloon was deployed at 20 angelique in the ostial first diagonal artery to open the struts going into the diagonal artery. A 2.5 x 22 mm Carlos Eduardo frontier stent was deployed at 20 angelique reducing the severe stenosis to 0% MEL-3 flow was present before and after the procedure. Following this a 2.5 x 12 mm noncompliant balloon was then deployed adjacent from the first diagonal artery opening the struts were pushing the struts out of the LAD. Following this a 3.5 x 18 mm [place] frontier stent was deployed at 22 angelique in the proximal to mid LAD crossing the first diagonal artery reducing the critical stenosis to less than 10%. MEL-3 flow was present before and after the procedure. At the end of the procedure the catheter was placed in the right coronary artery and angiography was performed. Following this the apparatus was removed the sheath was removed and hemostasis was achieved and TR banding patient was transferred to the postop putting in stable condition ANGIOGRAPHIC RESULTS The left main artery Normal The left anterior descending artery Has a stent in the proximal segment however there is a 90% concentric in-stent restenotic lesion immediately adjacent to the first diagonal artery. The remaining LAD is widely patent. The first diagonal artery has a proximal 50 followed by an additional proximal to mid vessel concentric 80% stenosis The circumflex artery Is a nondominant vessel. The first obtuse marginal artery is a moderate to large vessel and has a proximal 40% stenosis followed by an additional eccentric 60 to 70% stenosis The right coronary artery Is a dominant vessel and has stents in the proximal to mid segment which are widely patent with minimal in-stent restenosis. The posterior descending artery has a proximal 40 to 50% stenosis The HARDING ventriculogram reveals Not performed The left ventricular end-diastolic pressure Not measured IMPRESSION Severe to critical proximal LAD stenosis with successful stenting the proximal to mid LAD critical disease reduced to less than 10% with 1 drug-eluting stent Severe disease in a proximal large first diagonal artery with successful bifurcating stenting into the ostial proximal mid diagonal artery severe disease reduced to 0% with 1 drug-eluting stent Persistent severe stenosis in a nondominant circumflex artery/first obtuse marginal artery PLAN 1. Dual antiplatelet therapy 2. Risk factor modification 3. Cardiac rehabilitation 4. Avoidance of toba
[2022-12-13 12:29] LABS: Basophils # 0.1 K/mm3 (0-0.2); Basophils % 0.5 % (0.1-2.0); Eosinophils # 0.4 K/mm3 (0.0-0.4); Eosinophils % 2.9 % (0.1-12.0); Hematocrit 37.2 % (37.0-47.0); Hemoglobin 11.6 g/dL (12.2-16.2); Lymphocytes # 1.8 K/mm3 (0.7-4.5); Lymphocytes % 11.9 % (10-50); Mean Corpuscular HGB Conc 31.1 g/dL (31.8-35.4); Mean Corpuscular Hemoglobin 25.2 pg (27.0-31.2); Mean Corpuscular Volume 81.1 fl (81-99); Mean Platelet Volume 8.8 fl (7.4-10.4); Monocytes # 0.8 K/mm3 (0.1-1.0); Monocytes % 5.4 % (1.7-9.3); Neutrophils # 11.9 K/mm3 (1.8-7.8); Neutrophils % 79.3 % (37.0-80.0); Platelet Count 399 K/mm3 (142-424); Red Blood Count 4.59 M/mm3 (4.20-5.40); Red Cell Distribution Width 20.3 % (11.5-17.5); White Blood Count 15.1 K/mm3 (4.8-10.8)
[2022-12-13 12:39] LABS: Chloride 104 mmol/L (98-107); Potassium 4.4 mmoL/L (3.5-5.1); Sodium 139 mmol/L (136-145)
[2022-12-13 12:42] LABS: Blood Urea Nitrogen 38 mg/dl (7-17); Creatinine Clearance Estimated 55 mL/min (50-200); Estimated Glomerular Filt Rate 43 ml/min (>60); GFR (African American) 52 ML/MIN (>60); MANUAL DIFFERENTIAL MANUAL DIFFERENTIAL (MANUAL DIFF)
[2022-12-13 12:43] LABS: Anion Gap 14.4 mEq/L (5-15); Calcium 8.4 mg/dl (8.4-10.2); Carbon Dioxide 25 mmol/L (22.0-30.0); Glucose 148 mg/dl (74-100)
[2022-12-13 12:51] LABS: Anisocytosis 1+; Eosinophils % 1 % (0-3); Hypochromasia 1+; Lymphocytes % 12 % (10-50); Monocytes % 11 % (2-9); Neutrophils % 76 % (42-76); Ovalocytes 1+; Platelet Estimate Slight Increase; Total Cells Counted 100
[2022-12-13 12:52] LABS: Acanthocytes 1+
[2022-12-13 13:55] LABS: CATHL Activated Clotting Time > 400 SEC (74-125)
--- NOTE | 2022-12-13 15:07 | EXP.HP ---
History of Present Illness *Admission Date: 12/13/22 *Reason for visit:: chest pain *History of present illness: Ms. Mckinley is a 82-year-old female with history of dementia, CAD status post stenting, heart failure with preserved ejection fraction, A-fib on chronic anticoagulation, history of TAVR, diabetes, and hypertension. She presented to cardiology clinic for evaluation of some chest discomfort she had last week at her custodial. Troponin was checked and came back elevated. High-sensitivity troponin elevated at 220. She has had previous visit to [facility] with chest pain and this pain was getting worse. Was currently complaining of some nausea and so was sent to cardiology clinic for further evaluation. Due to chest pressure at rest, shortness of breath with activity, and elevated troponin, decision made to proceed with left heart cath. Patient found to have significant in-stent stenosis along with other findings of CAD. Received 2 drug-eluting stents. Medicine consulted for admission and monitoring overnight. On evaluation after arriving to the floor, patient is comfortable on room air. Denies any chest pain at this time. Denies any continued nausea, shortness of breath. She is pleasantly demented at baseline. [facility] Disclaimer: The information contained in this section may have been updated after the patient was seen, as this information can be updated by other users. Medical History Abnormal screening CT of chest Atrial fibrillation Bilateral carotid bruits CAD (coronary artery disease) Carotid artery stenosis CHF exacerbation Congestive heart failure Coronary artery disease Dementia Diabetes mellitus, type 2 Dyspnea Edema History of gastroesophageal reflux (GERD) History of heart attack Hypokalemia Hypomagnesemia ILD (interstitial lung disease) Moderate mitral regurgitation Pneumonia Syncope Surgical History H/O cardiac catheterization History of hysterectomy S/P TAVR (transcatheter aortic valve replacement) Stented coronary artery Family History No significant family history Social History Smoking Status: Former smoker alcohol intake: never current occupational status: retired Travel in the last 8 weeks: None household members: none housing: house Review of Systems Review of Systems Review of systems (narrative): 14 point review of systems performed, pertinent positives and negatives as per [facility] Meds Home Medications and Allergies Home Medications Medication Instructions Recorded Confirmed Type pantoprazole 40 mg tablet,delayed 40 mg PO DAILY Acid reflux 06/30/21 12/13/22 History release atorvastatin 40 mg tablet 40 mg PO HS Cholesterol #90 tabs 06/06/22 12/13/22 Rx furosemide 20 mg tablet 20 mg PO DAILY Fluid 10/24/22 12/13/22 History acetaminophen 325 mg tablet 325 mg PO QID PRN 12/13/22 12/13/22 History aspirin 81 mg tablet,delayed 81 mg PO DAILY 12/13/22 12/13/22 History release (Jenelle Low Dose Aspirin) carvedilol 3.125 mg tablet 3.125 mg PO BID 12/13/22 12/13/22 History clopidogrel 75 mg tablet (Plavix) 75 mg PO DAILY #30 tabs 12/13/22 Rx docusate sodium 100 mg capsule 100 mg PO DAILY 12/13/22 12/13/22 History (Dulcolax Stool Softener (docusate)) isosorbide mononitrate 30 mg 30 mg PO DAILY 12/13/22 12/13/22 History tablet,extended release 24 hr potassium chloride 40 mEq/15 mL 40 meq PO DAILY 12/13/22 12/13/22 History oral liquid ranolazine 500 mg tablet,extended 500 mg PO BID #180 tabs 12/13/22 12/13/22 Rx release,12 hr rivaroxaban 20 mg tablet 20 mg PO DAILY 12/13/22 12/13/22 History New Prescriptions to Start Prescriptions: clopidogrel [Plavix] Femi Alanis Allergies Allergy/AdvReac Type Severity Reac
[2022-12-13 15:33] LABS: Troponin I 0.03 ng/ml (0.00-0.034)
--- NOTE | 2022-12-13 15:45 | PC.NURSE ---
Rounded on patient. She denies any needs or concerns. Bed locked an in the lowest position, call light is within reach.
--- NOTE | 2022-12-13 16:50 | PC.NURSE ---
Band removed and bleeding started. Band applied with 15ml of air.
[2022-12-14] VITALS: BP 137/66; PULSE 60; PULSE 81; RESP 19; TEMP 36.4; O2SAT 98
[2022-12-14 04:00] VITALS: BP 110/55; PULSE 85; RESP 18; TEMP 36.4; O2SAT 96; BMI 37.0
[2022-12-14 07:33] LABS: Lymphocytes # 1.6 K/mm3 (0.7-4.5); Mean Platelet Volume 8.5 fl (7.4-10.4); Monocytes # 0.7 K/mm3 (0.1-1.0)
[2022-12-14 07:43] LABS: Basophils # 0.1 K/mm3 (0-0.2); Basophils % 0.5 % (0.1-2.0); Eosinophils # 0.6 K/mm3 (0.0-0.4); Eosinophils % 5.5 % (0.1-12.0); Hematocrit 33.6 % (37.0-47.0); Lymphocytes % 15.1 % (10-50); Mean Corpuscular Hemoglobin 25.1 pg (27.0-31.2); Monocytes % 6.3 % (1.7-9.3); Neutrophils # 7.6 K/mm3 (1.8-7.8); Neutrophils % 72.7 % (37.0-80.0); Platelet Count 339 K/mm3 (142-424); Red Blood Count 4.15 M/mm3 (4.20-5.40); Red Cell Distribution Width 20.5 % (11.5-17.5); White Blood Count 10.4 K/mm3 (4.8-10.8)
--- NOTE | 2022-12-14 07:46 | EXP.DC.SUM ---
General Admission date:: 12/13/22 Discharge date: 12/14/22 HPI HPI HPI: Ms. Mckinley is a 82-year-old female with history of dementia, CAD status post stenting, heart failure with preserved ejection fraction, A-fib on chronic anticoagulation, history of TAVR, diabetes, and hypertension. She presented to cardiology clinic for evaluation of some chest discomfort she [facility]. Troponin was checked and came back elevated. High-sensitivity troponin elevated at 220. She has had previous visit to [facility] with chest pain and this pain was getting worse. Was currently complaining of some nausea and so was sent to cardiology clinic for further evaluation. Due to chest pressure at rest, shortness of breath with activity, and elevated troponin, decision made to proceed with left heart cath. Patient found to have significant in-stent stenosis along with other findings of CAD. Received 2 drug-eluting stents. Medicine consulted for admission and monitoring overnight. On evaluation after arriving to the floor, patient is comfortable on room air. Denies any chest pain at this time. Denies any continued nausea, shortness of breath. She is pleasantly demented at baseline. Hospital Course Hospital Course Hospital Course: 82-year-old female with episodes of chest discomfort. Found to have elevated troponin. Evaluated by cardiology today, taken to the [facility] for intervention. See cath report for full details. Discussed case with cardiology, requested admission for monitoring overnight and repeat labs in the morning to monitor kidney function as well as monitor on telemetry. Medicine agreed to admit for further management. Patient remained stable telemetry. No chest pain overnight. Stable for discharge back to [facility] facility for continued care. Problems addressed as follows: NSTEMI CAD -Presented with episodes of chest pain prior to admission. Found to have elevated troponin. Concern for NSTEMI. Taken to [facility] for left heart cath. Impression and findings as follows: Severe to critical proximal LAD stenosis with successful stenting the proximal to mid LAD critical disease reduced to less than 10% with 1 drug-eluting stent Severe disease in a proximal large first diagonal artery with successful bifurcating stenting into the ostial proximal mid diagonal artery severe disease reduced to 0% with 1 drug-eluting stent Persistent severe stenosis in a nondominant circumflex artery/first obtuse marginal artery PLAN 1. Dual antiplatelet therapy with Plavix and aspirin for 1 month and then continue Plavix and Xarelto thereafter. Monitor for signs of bleeding. 2. Cardiac rehabilitation 3. LDL less than 55 to be achieved with high intensity statin 4. Medical management for the obtuse marginal artery. Aortic stenosis status post TAVR 08/15 Hypertension A-fib -Continue carvedilol 3.125 mg to daily -Continue home Lasix 20 mg daily -Continue isosorbide mononitrate 30 mg daily -Continue ranolazine 500 mg twice Stable for discharge. Will return to [facility] today. Exam Data for Last 24 hours Vital signs and Labs for Last 24 Hours: Temp Pulse Resp BP Pulse Ox O2 Del Method 97.5 F L 85 18 110/55 L 96 Room Air 12/14/22 04:00 12/14/22 04:00 12/14/22 04:00 12/14/22 04:00 12/14/22 04:00 12/14/22 06:06 Laboratory Results - last 24 hr 12/13/22 12:14: WBC 15.1 H, RBC 4.59, Hgb 11.6 L, Hct 37.2, MCV 81.1, MCH 25.2 L, MCHC 31.1 L, RDW 20.3 H, Plt Count 399, MPV 8.8, Neut % (Auto) 79.3, Lymph % (Auto) 11.9, [place] % (Auto) 5.4, Eos % (Auto) 2.9, Baso % (Auto) 0.5, Neut # (Auto) 11.9 H, Lymph # (Auto) 1.8, [place] # (Auto) 0.8, Eos # (Auto) 0.4, Baso # (Auto) 0.1, Total Counted 100, Neutrophils % (Manual) 76, Lymphocytes % (Manual) 12, Monocytes % (Manual) 11 H, Eosinophils % (Manual) 1, Platelet Estimate Slight increase, Hypochromasia 1+, Anisocytosis 1+, Ovalocytes 1+, Acanthocytes (Spur) 1+, Sodium 139, Po
[2022-12-14 07:49] LABS: Hemoglobin 10.4 g/dL (12.2-16.2)
--- NOTE | 2022-12-14 07:53 | SW/DCPLANNER ---
Addendum entered by Aliya Whitaker 12/14/22 09:06: The plan for this patient is to return to [facility] level of care today: updated patient information has been faxed. Original Note: This patient currently resides at [facility] level of care. I will continue to follow up w/ Abbi at [facility] until patient is medically stable for discharge.
[2022-12-14 07:54] LABS: Alanine Aminotransferase 23 U/L (12-78); Albumin Level 2.7 g/dl (3.5-5.0); Alkaline Phosphatase 102 U/L (38-126); Anion Gap 8.5 mEq/L (5-15); Aspartate Amino Transferase 39 U/L (14-36); Bilirubin,Total 0.7 mg/dl (0.2-1.3); Blood Urea Nitrogen 33 mg/dl (7-17); Calcium 8.3 mg/dl (8.4-10.2); Carbon Dioxide 28 mmol/L (22.0-30.0); Chloride 105 mmol/L (98-107); Creatinine Clearance Estimated 56 mL/min (50-200); Estimated Glomerular Filt Rate 47 ml/min (>60); GFR (African American) 57 ML/MIN (>60); Globulin 2.8 g/dL (1.3-3.2); Glucose 95 mg/dl (74-100); Potassium 3.5 mmoL/L (3.5-5.1); Sodium 138 mmol/L (136-145); Total Protein,Serum 5.5 g/dl (6.3-8.2)
[2022-12-14 08:00] VITALS: BP 112/70; PULSE 78; PULSE 88; RESP 18; TEMP 36.3; O2SAT 98
--- NOTE | 2022-12-14 08:35 | P.CONPHA_ITS ---
Pharmacy Intervention Comments: VERIFIED HOME MEDICATION LIST USING LIST FROM [facility]
--- NOTE | 2022-12-14 08:35 | HMH.PHAINT1 ---
Pharmacy Intervention Comments: VERIFIED HOME MEDICATION LIST USING LIST FROM [facility]
--- NOTE | 2022-12-14 08:38 | HMH.PHACL ---
PHA Performance Tester Discharge Med Community Service Manager: Milagros Mckinley has received discharge medication counseling on the following medications: ASPIRIN PLAVIX CARVEDILOL ATORVASTATIN NO ACEI/ARB PER CARDIOLOGY. PATIENT IS FROM [facility]. -[facility]
--- NOTE | 2022-12-14 09:37 | EXP.CARD.PN ---
Subjective Subjective Date: 12/14/22 Time: 09:38 Principal diagnosis: Angina Interval history: 82-year-old white female resident of shelter was seen in the office yesterday for angina with elevated troponin consistent with non-STEMI. She was sent to the cardiac [facility] and received stents to LAD and diagonal arteries. Patient denies any chest pain, pressure or tightness this morning. She carries a diagnosis of dementia and is not oriented to place or time. Exam Data for Last 24 hours Vital signs and Labs for Last 24 Hours: Temp Pulse Resp BP Pulse Ox O2 Del Method 97.4 F L 78 18 112/70 98 Room Air 12/14/22 08:00 12/14/22 08:00 12/14/22 08:00 12/14/22 08:00 12/14/22 08:00 12/14/22 08:00 Laboratory Results - last 24 hr 12/13/22 12:14: WBC 15.1 H, RBC 4.59, Hgb 11.6 L, Hct 37.2, MCV 81.1, MCH 25.2 L, MCHC 31.1 L, RDW 20.3 H, Plt Count 399, MPV 8.8, Neut % (Auto) 79.3, Lymph % (Auto) 11.9, [place] % (Auto) 5.4, Eos % (Auto) 2.9, Baso % (Auto) 0.5, Neut # (Auto) 11.9 H, Lymph # (Auto) 1.8, [place] # (Auto) 0.8, Eos # (Auto) 0.4, Baso # (Auto) 0.1, Total Counted 100, Neutrophils % (Manual) 76, Lymphocytes % (Manual) 12, Monocytes % (Manual) 11 H, Eosinophils % (Manual) 1, Platelet Estimate Slight increase, Hypochromasia 1+, Anisocytosis 1+, Ovalocytes 1+, Acanthocytes (Spur) 1+, Sodium 139, Potassium 4.4, Chloride 104, Carbon Dioxide 25, Anion Gap 14.4, BUN 38 H, Creatinine 1.20 H, Estimated Creat Clear 55, Estimated GFR 43 L, Est GFR ( Amer) 52 L, Glucose 148 H, Calcium 8.4, Troponin I 0.03 12/13/22 13:03: Activated Clotting Time > 400 H* 12/14/22 07:10: WBC 10.4 D, RBC 4.15 L, Hgb 10.4 L D, Hct 33.6 L, MCV 81.0, MCH 25.1 L, MCHC 31.0 L, RDW 20.5 H, Plt Count 339, MPV 8.5, Neut % (Auto) 72.7, Lymph % (Auto) 15.1, [place] % (Auto) 6.3, Eos % (Auto) 5.5, Baso % (Auto) 0.5, Neut # (Auto) 7.6, Lymph # (Auto) 1.6, [place] # (Auto) 0.7, Eos # (Auto) 0.6 H, Baso # (Auto) 0.1, Sodium 138, Potassium 3.5 D, Chloride 105, Carbon Dioxide 28, Anion Gap 8.5, BUN 33 H, Creatinine 1.10 H, Estimated Creat Clear 56, Estimated GFR 47 L, Est GFR ( Amer) 57 L, Glucose 95 D, Calcium 8.3 L, Total Bilirubin 0.7, AST 39 H, ALT 23, Alkaline Phosphatase 102, Total Protein 5.5 L, Albumin 2.7 L, Globulin 2.8, Albumin/Globulin Ratio 1.0 L I & O for Last 24 hours: Intake & Output 12/11/22 12/12/22 12/13/22 12/14/22 11:59 11:59 11:59 11:59 Intake Total 270 / 270 Output Total 0 / 0 Balance 270 / 270 Weight 160 lb 7.944 oz 201 lb 4.8 oz *Routine Respiratory Exam Respiratory: Present CTA bilaterally *Routine Cardiovascular Exam Cardiovascular: Present RRR *Routine Neurological Exam Neurological: Present alert Progress Note: A&P Assessment and plan (1) Non-STEMI (non-ST elevated myocardial infarction): Status: Acute (2) Atrial fibrillation: Status: Acute (3) Hypertension: Status: Chronic (4) Hyperlipidemia: Status: Chronic (5) Severe aortic stenosis: Status: Acute (6) Heart failure with preserved ejection fraction: Status: Acute Assessment and Plan Assessment and Plan for All Diagnoses:: CAD Non-STEMI, 12/13/2022, VIVIANA to LAD and diagonal arteries. Persistent severe nondominant circumflex disease relegated to medical therapy. VIVIANA 1 to LAD and 3 RCA 05/2021. DAPT with aspirin and Plavix for 30 days then discontinue aspirin TAVR in 07/2021 due to severe , s/p 26 mm Isaac [address] Sellers Echo, 10/28/2022, EF 65%, grade 2 DD, status post bioprosthetic AV, trace central AI but no paravalvular AI. No significant bioprosthetic AV stenosis. Severe MAC, mild to moderate MR. Mild TR. RVSP 30-35 mm Hg LDL goal is < 55. LDL is 71. On atorvastatin ALEXANDRE is < 50% bilaterally. A-fib is present and rate controlled. A/C with Xarelto. Denies bleeding. Dementia Chronic anemia with hemoglobin around 10 CKD, stage II Creatinine 1.1-1.2 with GFR 43-47 Stable from a c
--- NOTE | 2022-12-14 09:47 | PC.NURSE ---
called report to nurse at [facility]
--- NOTE | 2022-12-14 10:00 | PC.NURSE ---
notified [facility] of transport
== END 2022-12-14 10:50 ==
LOC: 2ND 14:00
PROVIDERS: Admitting Provider Internal Medicine Adolescent Medicine; PCP Family Medicine; Referring Provider Internal Medicine; Visit Provider Internal Medicine Adolescent Medicine
DX: I21.4 Non-ST elevation (NSTEMI) myocardial infarction (principal); I48.11 Longstanding persistent atrial fibrillation; E78.2 Mixed hyperlipidemia; I35.0 Nonrheumatic aortic (valve) stenosis; I50.32 Chronic diastolic (congestive) heart failure; I11.0 Hypertensive heart disease with heart failure; I25.10 Atherosclerotic heart disease of native coronary artery without angina pectoris
CPT/HCPCS: 36415; 80048; 80053; 84484; 85007; 85025; 85347; 92928; 92929; 93454; 99152; 99153; C1725; C1769; C1874; C1876; C9600; C9601; G0378; J1644; Q9967